=== PATIENT | male | born 1960 | race Caucasian/White ===

== ENCOUNTER 2016-12-02 09:09 | Inpatient (IN) | payer MEDICAID ==
[~2016-12-02] VITALS: Ht 172.7 cm; Wt 102.6 kg
[~2016-12-02 09:09] MED LIST: ALLO300T2 PO; BENZ1TAB7 PO; BETH25TA PO; CARV12.525 PO; CETI10TA56 PO; DAPA1TAB3 PO; DICL50TA7 PO; DIVA500T31 PO; DIVA500T37 PO; DULA1.5P SQ; EZET1TAB2 PO; INSU100I21 SQ; LEVO100T12 PO; LEVO500T63 PO; PALI6TAB6 PO; TAMS0.4C47 PO; TRIA-56 PO; VIT1CAPS47 PO; [UNRECOGNIZED DRUG - CODE] PO
--- OUTSIDE RECORDS SUMMARY | 2016-12-02 09:13 | XMS REPORT ---
Author Author Aleksandra Higgins Organization eClinicalWorks Address Unknown Phone Unavailable Care Team Providers Care Teacher Theater Arts Name Role Phone Aleksandra Higgins CP Unavailable Allergies No Known Allergies Problems Problem Type Condition ICD-9 Code Onset Dates Condition Status Problem Unspecified personality disorder 301.9 Active Problem Bipolar I disorder, most recent episode (or current) manic, severe, specified as with psychotic behavior 296.44 Active Medications No Known Medications Results No Known Results Summary Purpose eClinicalWorks Submission
--- OUTSIDE RECORDS SUMMARY | 2016-12-02 09:13 | XMS REPORT ---
Author Aleksandra Chanel [facility] eClinicalWorks Address Unknown Phone Unavailable Care Team Providers Care Christmas Bell Ringer Name Role Phone Aleksandra Higgins Unavailable Allergies No Known Allergies Problems Problem Type Condition Code Onset Dates Condition Status Problem Bipolar disorder, current episode manic severe with psychotic features F31.2 Active Problem Personality disorder, unspecified F60.9 Active Problem Other alf (current) drug therapy Z79.899 Active Assessment Other buttermaker (current) drug therapy Z79.899 Active Medications Medication Code System Code Instructions Start Date End Date Status Dosage Triamterene-HCTZ [facility] [address]-26 37.5-25 MG Orally Once a day 1/ 2 tablet in the morning Levemir [facility] [address]-90 100 UNIT/ML Subcutaneous as directed for Diabetes [address] [facility] [address]-42 1000 MG Orally Twice a day [address] [facility] [address]-27 0.75 mg/0.5 mL subcutaneous Once a week not defined Carvedilol [facility] [address]-97 25 MG Orally Twice a day 1 tablet with food Levothyroxine Sodium [facility] [address]-13 100 MCG Orally Once a day 1 tablet on an empty stomach in the morning Divalproex Sodium [facility] [address]-46 500 MG Orally Twice a day Jul 12, 2015 1 tab in am and 2 tabs at bedtime Benztropine Mesylate [facility] 13641141105 1 mg Orally Three times per day as needed for muscle tightness/restlessness take one tablet by mouth three times per day DiphenhydrAMINE HCl (Sleep) [facility] [address]-41 25 MG Orally Once a day Sep 14, 2015 1-2 capsules at bedtime as needed Divalproex Sodium [facility] [address]-92 250 MG Orally Once a day at bedtime ( along with [id number]) April 04, [address] [facility] [address]-81 10 MG Orally Once a day [address] [facility] [address]1379 150 MG Orally 4 times a day [address] [facility] [address]-33 6 MG Orally Once a day in AM Jul 05, 2015 1 tablet Procedures Procedure Coding System Code Date VALPROIC ACID CPT-4 73162 Apr 17, 2016 Results No Known Results Summary Purpose eClinicalWorks Submission
--- OUTSIDE RECORDS SUMMARY | 2016-12-02 09:13 | XMS REPORT ---
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 Active Assessment Bipolar I disorder, most recent episode (or current) manic, severe , specified as with psychotic behavior 296.44 Active Problem Bipolar I disorder, most recent episode (or current) manic, severe, specified as with psychotic behavior 296.44 Active Assessment Unspecified personality disorder 301.9 Active Assessment Encounter for long-term (current) use of other medications V58.69 Active Medications Medication Code System Code Instructions Start Date End Date Status Dosage Fish Oil [facility] [address]-97 1000 MG Orally Twice a day 2 capsule Carvedilol [facility] [address]-25 25 MG Orally Twice a day 1 tablet with food Zyrtec Allergy [facility] [address]-45 10 MG Orally Once a day 1 tablet Triamterene-HCTZ [facility] [address]-51 37.5-25 MG Orally Once a day 1 tablet in the morning Divalproex Sodium [facility] [address]-42 500 MG Orally Twice a day 1 tab in am and 3 tabs at bedtime Invega [facility] [address]-40 6 MG Orally Once a day in AM 1 tablet Levemir [facility] [address]-39 100 UNIT/ML Subcutaneous as directed for Diabetes 50 units Levothyroxine Sodium [facility] [address]-29 75 MCG Orally Once a day 1 tablet on an empty stomach in the morning Benfotiamine [facility] 02[address]103 150 MG Orally 4 times a day 1 capsu Benztropine Mesylate [facility] [address]-83 1 MG Orally twice a day 1 tablet Procedures Procedure Coding System Code Date OFFICE VISIT, EST-MOD. COMPLEXITY (25 MIN) CPT-4 27595 March 16, 2015 Vital Signs Date/Time: March 16, 2015 Height 64.5 in Weight 225 lbs Temperature 99.2 F Blood Pressure Diastolic 78 mm Hg Blood Pressure Systolic 130 mm Hg Cardiac Monitoring Heart Rate 68 /min BMI 38.02 Index Respiratory Rate 20 /min Results No Known Results Summary Purpose eClinicalWorks Submission
--- OUTSIDE RECORDS SUMMARY | 2016-12-02 09:13 | XMS REPORT ---
Author Author Aleksandra Higgins Organization eClinicalWorks Address Unknown Phone Unavailable Care Team Providers Care Barrel Raiser Helper Name Role Phone Aleksandra Higgins Unavailable Allergies No Known Allergies Problems Problem Type Condition Code Onset Dates Condition Status Problem Personality disorder, unspecified F60.9 Active Problem Bipolar disorder, current episode manic severe with psychotic features F31.2 Active Medications Medication Code System Code Instructions Start Date End Date Status Dosage [facility] [address]-03 6 MG Orally Once a day in AM Jul 05, 2015 1 tablet Results No Known Results Summary Purpose eClinicalWorks Submission
--- OUTSIDE RECORDS SUMMARY | 2016-12-02 09:13 | XMS REPORT ---
Author Author Aleksandra Higgins Organization eClinical[employer] Address Unknown Phone Unavailable Care Team Providers Care Fern Gatherer Name Role Phone Aleksandra Higgins Unavailable Allergies No Known Allergies Problems Problem Type Condition Code Onset Dates Condition Status Problem Bipolar disorder, current episode manic severe with psychotic features F31.2 Active Problem Personality disorder, unspecified F60.9 Active Problem Other terminal supervisor (current) drug therapy Z79.899 Active Assessment Other care home (current) drug therapy Z79.899 Active Medications Medication Code System Code Instructions Start Date End Date [place] D[place] [address]-83 500 MG Orally Twice a day Jul 12, 2015 1 tab in am and 2 tabs [place] [address]-19 250 MG Orally Once a day at bedtime ( along with [id number]) April 04, 2016 1 tablet Results No Known Results Summary Purpose eClinicalWorks Submission
--- OUTSIDE RECORDS SUMMARY | 2016-12-02 09:13 | XMS REPORT ---
Author Aleksandra Chanel [facility] eClinicalWorks Address Unknown Phone Unavailable Care Team Providers Care Test Rider Name Role Phone Aleksandra Higgins CP Unavailable Allergies, Adverse Reactions, Alerts Substance Reaction Event Type Penicillin Info Not Available Drug Allergy Problems Problem Type Condition Code Onset Dates Condition Status Problem Personality disorder, unspecified F60.9 Active Assessment Bipolar disorder, current episode manic severe with psychotic features F31.2 Active Problem Bipolar disorder, current episode manic severe with psychotic features F31.2 Active Assessment Personality disorder, unspecified F60.9 Active Assessment Other oysterman (current) drug therapy Z79.899 Active Medications Medication Code System Code Instructions Start Date End Date Status Dosage Benztropine Mesylate [facility] [id number] 1 Orally take one tablet by mouth twice a day Divalproex Sodium [facility] [address]-70 500 MG Orally Twice a day Jul 12, 2015 1 tab in am and 3 tabs at bedtime Levothyroxine Sodium [facility] [address]-34 75 MCG Orally Once a day 1 tablet on an empty stomach in the morning DiphenhydrAMINE HCl (Sleep) [facility] [address]-92 25 MG Orally Once a day Sep 14, 2015 1-2 capsules at bedtime as needed Triamterene-HCTZ [facility] [address]-41 37.5-25 MG Orally Once a day 1/ 2 tablet in the morning Benfotiamine [facility] 19943-07956 150 MG Orally 4 times a day 1 capsu Invega [facility] [address]-25 6 MG Orally Once a day in AM Jul 05, 2015 1 tablet Levemir [facility] [address]-29 100 UNIT/ML Subcutaneous as directed for Diabetes 50 units Fish Oil [facility] [address]-68 1000 MG Orally Twice a day 2 capsule Carvedilol [facility] [address]-46 25 MG Orally Twice a day 1 tablet with food Zyrtec Allergy [facility] [address]-89 10 MG Orally Once a day 1 tablet Avastin [facility] [address]-61 100 MG/4ML Intravenous not defined Procedures Procedure Coding System Code Date COMPLETE CBC W/AUTO DIFF WBC CPT-4 97151 Sep 14, 2015 TSH WITH REFLEX T4 CPT-4 42041 Sep 14, 2015 OFFICE VISIT, EST-MOD. COMPLEXITY (25 MIN) CPT-4 56611 Sep 14, 2015 IH CMP CPT-4 55130 Sep 14, 2015 VALPROIC ACID CPT-4 50724 Sep 14, 2015 IH LIPID PANEL CPT-4 30647 Sep 14, 2015 Vital Signs Date/Time: Sep 14, 2015 Height 64.5 in Weight 224.12 lbs Temperature 99.6 F Blood Pressure Diastolic 82 mm Hg Blood Pressure Systolic 130 mm Hg Cardiac Monitoring Heart Rate 78 /min BMI 37.87 Index Respiratory Rate 20 /min Results No Known Results Summary Purpose eClinicalWorks Submission
--- OUTSIDE RECORDS SUMMARY | 2016-12-02 09:14 | XMS REPORT ---
Author Aleksandra Chanel [facility] eClinicalWorks Address Unknown Phone Unavailable Care Team Providers Care Milk Driver Name Role Phone Aleksandra Higgins CP Unavailable [...] Active Assessment Unspecified personality disorder 301.9 Active Medications Medication Code System Code Instructions Start Date End Date Status Dosage Zyrtec Allergy [facility] [address]-95 10 MG Orally Once a day 1 tablet Benfotiamine [facility] 13534-12071 150 MG Orally 4 times a day 1 capsu Fish Oil [facility] [address]-35 1000 MG Orally Twice a day 1 capsule Levemir [facility] [address]-20 100 UNIT/ML Subcutaneous as directed for Diabetes 14.2mg/ml Levothyroxine Sodium [facility] [address]-42 75 MCG Orally Once a day 1 tablet on an empty stomach in the morning Triamterene-HCTZ [facility] [address]-23 37.5-25 MG Orally Once a day 1 tablet in the morning Divalproex Sodium [facility] [address]-83 500 MG Orally Twice a day 1 tab in am and 3 tabs at bedtime Invega [facility] [address]-53 6 MG Orally Once a day in AM 1 tablet Carvedilol [facility] [address]-95 25 MG Orally Twice a day 1 tablet with food Benztropine Mesylate [facility] [address]-29 1 MG Orally twice a day 1 tablet Procedures Procedure Coding System Code Date OFFICE VISIT, EST-MOD. COMPLEXITY (25 MIN) CPT-4 57796 December 15, 2014 Vital Signs Date/Time: December 15, 2014 Height 64.5 in Weight 226 lbs Temperature 99.6 F Blood Pressure Diastolic 80 mm Hg Blood Pressure Systolic 128 mm Hg Cardiac Monitoring Heart Rate 60 /min BMI 38.19 Index Respiratory Rate 18 /min Results No Known Results Summary Purpose eClinicalWorks Submission
--- OUTSIDE RECORDS SUMMARY | 2016-12-02 09:14 | XMS REPORT ---
Author Author Pérez Bustamante [facility] [place] eClinicalWorks Address Unknown Phone Unavailable Care Team Providers Care Ordnance Keeper Name Role Phone Pérez Bustamante CP Unavailable Allergies, Adverse Reactions, Alerts Substance Reaction Event Type Penicillin Info Not Available Drug Allergy Seasonal Allergies Info Not Available Non Drug Allergy Problems Problem Type Condition Code Onset Dates Condition Status Problem Bipolar disorder, current episode manic severe with psychotic features F31.2 Active Problem Personality disorder, unspecified F60.9 Active Problem Other terminal makeup operator (current) drug therapy Z79.899 Active Assessment Other shelter (current) drug therapy Z79.899 Active Assessment Bipolar disorder, current episode manic severe with psychotic features F31.2 Active Assessment Personality disorder, unspecified F60.9 Active Medications Medication Code System Code Instructions Start Date End Date Status Dosage Triamterene-HCTZ [facility] [address]-58 37.5-25 MG Orally Once a day 1/ 2 tablet in the morning Fish Oil [facility] [address]-80 1000 MG Orally Twice a day 2 capsule Divalproex Sodium [facility] [address]-04 250 MG Orally Once a day at bedtime ( along with [id number]) April 04, 2016 1 tablet Trulicity [facility] [address]-98 0.75 mg/0.5 mL subcutaneous Once a week not defined Carvedilol [facility] [address]-29 25 MG Orally Twice a day 1 tablet with food Divalproex Sodium [facility] [address]-98 500 MG Orally Twice a day Jul 12, 2015 1 tab in am and 2 tabs at bedtime Benztropine Mesylate [facility] 06028982184 1 mg Orally Three times per day as needed for muscle tightness/restlessness take one tablet by mouth three times per day Zyrtec Allergy [facility] [address]-79 10 MG Orally Once a day 1 tablet Benfotiamine [facility] 08[address]996 150 MG Orally 4 times a day 1 capsu Invega [facility] [address]-89 6 MG Orally Once a day in AM Jul 05, 2015 1 tablet Levothyroxine Sodium [facility] [address]-29 100 MCG Orally Once a day 1 tablet on an empty stomach in the morning Levemir [facility] [address]-85 100 UNIT/ML Subcutaneous as directed for Diabetes 50 units DiphenhydrAMINE HCl (Sleep) [facility] [address]-45 25 MG Orally Once a day Sep 14, 2015 1-2 capsules at bedtime as needed Procedures Procedure Coding System Code Date OFFICE VISIT, EST-MOD. COMPLEXITY (25 MIN) CPT-4 36990 Jun 30, 2016 Vital Signs Date/Time: Jun 30, 2016 Temperature 98.6 F Height 64.5 in Weight 224.4 lbs Respiratory Rate 20 /min Blood Pressure Diastolic 86 mm Hg Blood Pressure Systolic 128 mm Hg Cardiac Monitoring Heart Rate 80 /min Results No Known Results Summary Purpose eClinicalWorks Submission
--- OUTSIDE RECORDS SUMMARY | 2016-12-02 09:14 | XMS REPORT ---
Author Pérez Chew [facility] eClinicalWorks Address Unknown Phone Unavailable Care Team Providers Care Burial Needs Salesperson Name Role Phone Pérez Bustamante Unavailable Allergies No Known Allergies Problems Problem Type Condition Code Onset Dates Condition Status Problem Bipolar disorder, current episode manic severe with psychotic features F31.2 Active Problem Personality disorder, unspecified F60.9 Active Problem Other [facility] (current) drug therapy Z79.899 Active Assessment Other [facility] (current) drug therapy Z79.899 Active Medications Medication Code System Code Instructions Start Date End Date Status Dosage Trulicity [facility] [address]-19 0.75 mg/0.5 mL subcutaneous Once a week not defined Levemir [facility] [address]-02 100 UNIT/ML Subcutaneous as directed for Diabetes 50 units Divalproex Sodium [facility] [address]-58 250 MG Orally Once a day at bedtime ( along with [id number]) April 04, 2016 1 tablet Levothyroxine Sodium [facility] [address]-02 100 MCG Orally Once a day 1 tablet on an empty stomach in the morning Zyrtec Allergy [facility] [address]-31 10 MG Orally Once a day 1 tablet Fish Oil [facility] [address]-27 1000 MG Orally Twice a day 2 capsule Invega [facility] [address]-09 6 MG Orally Once a day in AM Jul 05, 2015 1 tablet Benztropine Mesylate [facility] 43593456909 1 mg Orally Three times per day as needed for muscle tightness/restlessness take one tablet by mouth three times per day Divalproex Sodium [facility] [address]-99 500 MG Orally Twice a day Jul 12, 2015 1 tab in am and 2 tabs at bedtime Triamterene-HCTZ [facility] [address]-99 37.5-25 MG Orally Once a day 1/ 2 tablet in the morning Benfotiamine [facility] [address]906 150 MG Orally 4 times a day 1 capsu DiphenhydrAMINE HCl (Sleep) [facility] [address]-49 25 MG Orally Once a day Sep 14, 2015 1-2 capsules at bedtime as needed Carvedilol [facility] [address]-42 25 MG Orally Twice a day 1 tablet with food Procedures Procedure Coding System Code Date T4 FREE CPT-4 29254 Jul 05, 2016 TSH CPT-4 25368 Jul 05, 2016 COMPLETE CBC W/AUTO DIFF WBC CPT-4 34340 Jul 05, 2016 IH LIPID PANEL CPT-4 72060 Jul 05, 2016 IH CMP CPT-4 26051 Jul 05, 2016 Results No Known Results Summary Purpose eClinicalWorks Submission
--- OUTSIDE RECORDS SUMMARY | 2016-12-02 09:14 | XMS REPORT ---
Author Aleksandra Chanel [facility] eClinicalWorks Address Unknown Phone Unavailable Care Team Providers Care Student Services Counselor Name Role Phone Aleksandra Higgins CP Unavailable Allergies, Adverse Reactions, Alerts Substance Reaction Event Type Penicillin Info Not Available Drug Allergy Problems Problem Type Condition Code Onset Dates Condition Status Problem Personality disorder, unspecified F60.9 Active Assessment Bipolar disorder, current episode manic severe with psychotic features F31.2 Active Problem Bipolar disorder, current episode manic severe with psychotic features F31.2 Active Assessment Other termite exterminator helper (current) drug therapy Z79.899 Active Medications Medication Code System Code Instructions Start Date End Date Status Dosage Zyrtec Allergy [facility] [address]-89 10 MG Orally Once a day [address] tablet Triamte[address]-H[address] [facility] [address]-81 37.5-25 MG Orally Once a day 1/ 2 tablet in the morning DiphenhydrAMINE HCl (Sleep) [facility] [address]-14 25 MG Orally Once a day Sep 14, 2015 1-2 capsules at bedtime as needed Invega [facility] [address]-93 6 MG Orally Once a day in AM Jul 05, [address] [facility] [address]-85 100 MCG Orally Once a day 1 tablet on an empty stomach in the morning Levemir [facility] [address]-80 100 UNIT/ML Subcutaneous as directed for Diabetes [address] [facility] 46[address] 150 MG Orally 4 times a day [address] [facility] [address]-07 0.75 mg/0.5 mL subcutaneous Once a week not defined Divalproex Sodium [facility] [address]-01 500 MG Orally Twice a day Jul 12, 2015 1 tab in am and 3 tabs at bedtime Benztropine Mesylate [facility] 93657340225 1 mg Orally Three times per day as needed for muscle tightness/restlessness take one tablet by mouth three times per day Carvedilol [facility] [address]-27 25 MG Orally Twice a day 1 tablet with food Fish Oil [facility] [address]-77 1000 MG Orally Twice a day 2 capsule Procedures Procedure Coding System Code Date OFFICE VISIT, EST-LOW COMPLEXITY (15 MIN.) CPT-4 00915 March 28, 2016 Vital Signs Date/Time: March 28, 2016 Temperature 99.0 F Height 64.5 in Weight 219.8 lbs Blood Pressure Diastolic 78 mm Hg Blood Pressure Systolic 110 mm Hg Cardiac Monitoring Heart Rate 84 /min BMI 37.14 Index Respiratory Rate 22 /min Results No Known Results Summary Purpose eClinicalWorks Submission
--- OUTSIDE RECORDS SUMMARY | 2016-12-02 09:14 | XMS REPORT ---
Author Aleksandra Chanel [facility] eClinicalWorks Address Unknown Phone Unavailable Care Team Providers Care Certified Neurodiagnostic Technologist Name Role Phone Aleksandra Higgins Unavailable Allergies No Known Allergies Problems Problem Type Condition Code Onset Dates Condition Status Problem Personality disorder, unspecified F60.9 Active Assessment Other watermelon harvesting supervisor (current) drug therapy Z79.899 Active Problem Bipolar disorder, current episode manic severe with psychotic features F31.2 Active Medications Medication Code System Code Instructions Start Date End Date Status Dosage Benfotiamine [facility] [address] 150 MG Orally 4 times a day 1 capsu Benztropine Mesylate [facility] 90833109586 1 mg Orally Three times per day as needed for muscle tightness/restlessness take one tablet by mouth three times per day DiphenhydrAMINE HCl (Sleep) [facility] [address]-08 25 MG Orally Once a day Sep 14, 2015 1-2 capsules at bedtime as needed Levothyroxine Sodium [facility] [address]-14 100 MCG Orally Once a day 1 tablet on an empty stomach in the morning Zyrtec Allergy [facility] [address]-55 10 MG Orally Once a day 1 tablet Divalproex Sodium [facility] [address]-07 500 MG Orally Twice a day Jul 12, 2015 1 tab in am and 3 tabs at bedtime Invega [facility] [address]-22 6 MG Orally Once a day in AM Jul 05, 2015 1 tablet Carvedilol [facility] [address]-05 25 MG Orally Twice a day 1 tablet with food Triamterene-HCTZ [facility] [address]-02 37.5-25 MG Orally Once a day 1/ 2 tablet in the morning Levemir [facility] [address]-52 100 UNIT/ML Subcutaneous as directed for Diabetes 50 units Fish Oil [facility] [address]-34 1000 MG Orally Twice a day 2 capsule Trulicity [facility] [address]-06 0.75 mg/0.5 mL subcutaneous Once a week not defined Procedures Procedure Coding System Code Date TSH WITH REFLEX T4 CPT-4 13349 March 31, 2016 VALPROIC ACID CPT-4 59979 March 31, 2016 COMPLETE CBC W/AUTO DIFF WBC CPT-4 47650 March 31, 2016 IH LIPID PANEL CPT-4 86788 March 31, 2016 IH CMP CPT-4 70234 March 31, 2016 Results Name Result Date Reference Range Unit Abnormality Flag In House CMP ----Total Protein 7.6 [id number] 6.4 - 8.1 G/DL ----EGFR >60 [id number] ----Alkaline Phosphatase 53 [id number] 53 - 128 u/L ----Creatinine 1.0 85650339 0.6 - 1.2 mg/DL ----BUN 25* [id number] 7 - 22 mg/DL ----Calcium 9.4 32249378 8.0 - 10.3 mg/DL ----Glucose 118 [id number] 73 - 118 mg/DL ----AST 30 [id number] 11 - 38 u/L ----ALT 18 [id number] 10 - 47 u/L ----Albumin 3.5 55884293 3.3 - 5.5 g/DL ----Total Bilirubin 0.6 55464775 0.2 - 1.6 mg/DL ----Sodium 138 65687473 128 - 145 mmol/L ----Potassium 4.2 33646713 3.6 - 5.1 mmol/L ----CO2 25 35180202 18 - 33 mmol/L ----Chloride 100 56048834 98 - 108 mmol/L Summary Purpose eClinicalWorks Submission
--- OUTSIDE RECORDS SUMMARY | 2016-12-02 09:14 | XMS REPORT ---
Author Author Pérez Bustamante [facility] e[employer] Address Unknown Phone Unavailable Care Team Providers Care Immigration Manager Name Role Phone Pérez Bustamante Unavailable Allergies No Known Allergies Problems Problem Type Condition Code Onset Dates Condition Status Problem Bipolar disorder, current episode manic severe with psychotic features F31.2 Active Problem Personality disorder, unspecified F60.9 Active Problem Other ferry terminal supervisor (current) drug therapy Z79.899 Active Assessment Bipolar disorder, current episode manic severe with psychotic features F31.2 Active Assessment Personality disorder, unspecified F60.9 Active Medications Medication Code System Code Instructions Start Date End Date Status Dosage Zyrtec Allergy [facility] [address]-32 10 MG Orally Once a day 1 tablet Triamterene-HCTZ [facility] [address]-18 37.5-25 MG Orally Once a day 1/ 2 tablet in the morning Carvedilol [facility] [address]-03 25 MG Orally Twice a day 1 tablet with food Trulicity [facility] [address]-93 0.75 mg/0.5 mL subcutaneous Once a week not defined Divalproex Sodium [facility] [address]-52 250 MG Orally Once a day at bedtime ( along with [id number]) April 04, [address] [facility] [address]-33 100 UNIT/ML Subcutaneous as directed for Diabetes 50 units Fish Oil [facility] [address]-86 1000 MG Orally Twice a day 2 capsule Divalproex Sodium [facility] [address]-98 500 MG Orally Twice a day Jul 12, 2015 1 tab in am and 2 tabs at bedtime DiphenhydrAMINE HCl (Sleep) [facility] [address]-57 25 MG Orally Once a day Sep 14, 2015 1-2 capsules at bedtime as needed Benztropine Mesylate [facility] [id number] 1 mg Orally Three times per day as needed for muscle tightness/restlessness take one tablet by mouth three times per day Benfotiamine [facility] [address] 150 MG Orally 4 times a day 1 capsu Levothyroxine Sodium [facility] [address]-91 100 MCG Orally Once a day 1 tablet on an empty stomach in the morning Invega [facility] [address]-28 6 MG Orally Once a day in AM Jul 05, 2015 1 tablet Procedures Procedure Coding System Code Date VALPROIC ACID CPT-4 60009 Jun 30, 2016 Results No Known Results Summary Purpose eClinicalWorks Submission
--- NOTE | 2016-12-02 09:28 | NUR ---
UA BRIGHT RED URINE TO LAB
[2016-12-02 09:33] LABS: BLOOD, URINE 3+ (NEGATIVE); COLOR,URINE RED (YELLOW); LEUKOCYTE ESTERASE ,URINE TRACE (NEGATIVE); NITRITE,URINE NEGATIVE (NEGATIVE); UROBILINOGEN,URINE 0.2 EU/DL (NORMAL)
--- NOTE | 2016-12-02 09:36 | NUR ---
DR VÁZQUEZ IN
[2016-12-02] MEDS ORDERED: MONT10TA25 PO (09:38)
[2016-12-02] MEDS ORDERED: INSU300I SQ (09:38)
[2016-12-02] MEDS ORDERED: DIVA250T27 PO (09:38)
[2016-12-02 09:52] LABS: BACTERIA,URINE NONE SEEN (NEGATIVE); RBC,URINE TNTC /HPF (0-3); SQUAMOUS EPITHELIAL CELL,UR 0-5
[2016-12-02 10:08] LABS: BASOPHILS % (AUTO) 0.1 % (0-2); EOSINOPHILS % (AUTO) 0.5 % (0-4); HCT - HEMATOCRIT 42.3 % (41-53); HGB - HEMOGLOBIN 14.1 GM/DL (13.5-17.5); IMMATURE GRANULOCYTE # (AUTO) 0.02 T/MM3 (0.00-0.03); IMMATURE GRANULOCYTE % (AUTO) 0.2 % (0.0-0.5); LYMPHOCYTES # (AUTO) 2.8 T/MM3 (1-4.8); LYMPHOCYTES % (AUTO) 31.7 % (23-45); MEAN CORPUSCULAR HGB 30.7 UUG (26-34); MEAN CORPUSCULAR HGB CONC(MCHC 33.3 GM/DL (31-37); MONOCYTES # (AUTO) 0.9 T/MM3 (0-0.8); MONOCYTES % (AUTO) 9.7 % (0-9.0); NEUTROPHILS #(AUTO)-ABSOLUTE 5.1 T/MM3 (1.8-7.7); NEUTROPHILS % (AUTO) 57.8 % (33-66); WBC - WHITE BLOOD COUNT 8.8 T/MM3 (4.5-11.0)
[2016-12-02 10:16] LABS: ALBUMIN 3.9 G/DL (3.5-5.0); ALBUMIN/GLOBULIN RATIO 1.1 RATIO (1.1-2.2); ALKALINE PHOSPHATASE 108 U/L (38-126); ALT (SGPT) 76 U/L (21-72); ANION GAP 17 MEQ/L (5-15); AST (SGOT) 84 U/L (17-59); BUN/CREATININE RATIO 32 RATIO (6-26); CALCIUM 9.6 MG/DL (8.4-10.2); CHLORIDE 98 MEQ/L (98-107); CO2 - CARBON DIOXIDE 26 MEQ/L (22-30); CREATININE 1.2 MG/DL (0.8-1.5); GLOMERULAR FILTRATION RATE 63; GLUCOSE 169 MG/DL (75-110); POTASSIUM 4.1 MEQ/L (3.6-5); SODIUM 141 MEQ/L (134-144); TOTAL PROTEIN 7.6 G/DL (6.3-8.2)
--- NOTE | 2016-12-02 10:22 | ERPDOC ---
Departure Disposition Decision Date: Dec 02, 2016 Disposition Decision Time: 14:36 Disposition: 02 TO [facility] Impression Impression Impression: Primary Impression: Cystitis Additional Impressions: Sepsis UTI (urinary tract infection) Severity: Moderate Condition: Stable Seen By: Physician only Referrals: DANA [place] II, MD (Family) Problems/Meds/Labs Reviewed?: Yes Medications reviewed and manag: Yes Follow up care ordered?: Yes Mental Status: Alert, Oriented HPI - Male General Chief Complaint: Male Urogenital Problems Stated Complaint: POSS UTI, RED URINE Time Seen by Provider: 09:39 HPI - Male Initial Comments 56-year-old gentleman with hematuria. Patient has had previous episodes of red, bloody urine although it is only happened a couple of times. He noticed it yesterday and then this morning again. It is become much more significant than previous. He does notice some clots are being passed, has some pain with urination, though not as much see would expect. No fever or chills, no diarrhea , no vomiting. He denies any instrumentation or damage to the penis. Allergies: Coded Allergies: Penicillins (Verified Allergy, Severe, ANAPHYLACTIC SHOCK, 12/02/16) Past History Patient Surgical History None Past Medical History Metabolic: diabetes, gout, hypercholesterolemia, hypertension, hypothyroidism ENMT: allergies, cataracts Cardiac: A-fib GI: GERD, other Male: BPH Psychological: bipolar, personality disorder Surgical History Denies Surgeries Family History Family PMH: FOUND: hypertension Vaccines Hx Influenza Vaccination: Yes (Aug) Hx Pneumococcal Vaccination: No Social History Smoking Status: Never smoker Substance Use Type: does not use Alcohol Intake: none Record Review Pertinent history updated: Yes Review of Systems General: see HPI Male: see HPI All other Systems All Other Systems: Reviewed and Negative Physical Exam General General Nourishment: appears stated age, no acute distress, adult, obese General Body Habitus: well groomed Vitals and Pain First Documented Vital Signs Date Time Temp Pulse Resp B/P Pulse Ox O2 Delivery O2 Flow Rate FiO2 12/02/16 09:11 98.4 93 16 139/80 95 Room Air Weight: Kilograms: 101.100 Height (feet): 5 Height (inches): 9.00 Triage Pain Scale: Normal Exams: Head: Normocephalic w/o trauma Eyes: Pupils are PERRLA w/ EOMI, No scleral icterus, irritation, or foreign bodies noted Neck: Full range of motion, without adenopathy, JVD, bruits or thyromegaly Chest/Resp: Clear all [place], with good airflow, and symmetry bilaterally CV: Regular rate and rhythm, without murmur or gallop, Pulses 2+ all extremities, capillary refill, <2 seconds all ext., no pedal edema noted Abdomen: Bowel sounds positive, soft, non-tender, non-distended, no hepatosplenomegaly, masses or bruits noted Differential Diagnoses Considering: Abscess, Trauma, Ureteral Stone, Urinary Retention Progress Results/Orders Orders Procedure Category Date Status Time Cbc W/Auto LAB 12/02/16 Complete Diff-Reflex Manual 09:39 Cmp - Comprehensive LAB 12/02/16 Complete Metabolic 09:39 Lactate - Lactic Acid LAB 12/02/16 Complete 09:39 Uric Acid LAB 12/02/16 Complete 09:39 Urine Culture MICHAEL 12/02/16 Logged 09:39 UA, LAB 12/02/16 Complete Dip&Micro(Complete) & 09:26 Blood Culture MICHAEL 12/02/16 In Process 11:16 Iv Lock (Ed Only) EDM 12/02/16 Transmitted 11:16 Normal Saline (Normal PHA 12/02/16 Complete Saline Iv) 11:30 Ct Abd/Pelvis CT 12/02/16 Taken W/Contrast Only Iohexol (Omnipaque) PHA 12/02/16 Complete 11:47 Normal Saline (Ns) PHA 12/02/16 Complete 11:47 Saline Flush (Iv PHA 12/02/16 Complete Flush) 11:48 Procalcitonin LAB 12/02/16 Complete 13:23 Aztreonam (Azactam) PHA 12/02/16 In Process 13:30 Levofloxacin 750 Mg PHA 12/02/16 In Process Ivpb (Levaquin 750 M 13:30 Vancomycin (Vancocin) PHA 12/02/16 In Process 13:30 Pharmacy Consult CONS 12/02/16 Transmitted 13:23 Lab Results Laboratory Tests Test 12/02/16 09:26 12/02/16 09:57 12/02/16 10:00 Urine Collection Type Voided-not cc-midstr Urine Color Red Urine Turbidity Cloudy Urine pH 6.5 Urine Specific [place] 1.010 Urine Protein 3+ Urine Glucose (UA) 3+ Urine Ketones Negative Urine Blood 3+ Urine Nitrite Negative Urine Bilirubin Negative Urine Urobilinogen 0.2EU/DL Urine Leukocyte Esterase Trace Urine RBC Tntc/HPF Urine WBC 3-5/HPF Urine Squamous Epithelial Cells 0-5 Urine Bacteria None seen Urine Culture Indicated Cult not indicated Procalcitonin 0.25NG/ML White Blood Count 8.8T/MM3 Red Blood Count 4.60M/MM3 Hemoglobin 14.1GM/DL Hematocrit 42.3% Mean Corpuscular Volume 92.0UM3 Mean Corpuscular Hemoglobin 30.7UUG Mean Corpuscular Hemoglobin Concent 33.3GM/DL RDW Standard Deviation 47.6FL Platelet Count 112T/MM3 Mean Platelet Volume 9.0UM3 Immature Granulocyte % (Auto) 0.2% Neutrophils (%) (Auto) 57.8% Lymphocytes (%) (Auto) 31.7% Monocytes (%) (Auto) 9.7% Eosinophils (%) (Auto) 0.5% Basophils (%) (Auto) 0.1% Absolute Immature Granulocyte (auto 0.02T/MM3 Absolute Neutrophils (auto) 5.1T/MM3 Absolute Lymphocytes (auto) 2.8T/MM3 Absolute Monocytes (auto) 0.9T/MM3 Absolute Eosinophils (auto) 0.0T/MM3 Absolute Basophils (auto) 0.0T/MM3 Turbidity < 20 Sodium Level 141MEQ/L Potassium Level 4.1MEQ/L Chloride Level 98MEQ/L Carbon Dioxide Level 26MEQ/L Anion Gap 17MEQ/L Blood Urea Nitrogen 38.0MG/DL Creatinine 1.2MG/DL Glomerular Filtration Rate Calc 63 BUN/Creatinine Ratio 32RATIO Glucose Level 169MG/DL Calculated Osmolality 284MOSM/KG Uric Acid 5.9MG/DL Calcium Level 9.6MG/DL Total Bilirubin 0.50MG/DL Icterus Index < 2 Aspartate Amino Transf (AST/SGOT) 84U/L Alanine Aminotransferase (ALT/SGPT) 76U/L Alkaline Phosphatase 108U/L Total Protein 7.6G/DL Albumin 3.9G/DL Globulin 3.7G/DL Albumin/Globulin Ratio 1.1RATIO Plasma Lactate 6.3MMOL/L Chemistry Specimen Hemolysis < 15 Medications Current ED Medications Sodium Chloride (Normal Saline IV) 1,000 ml @ 500 mls/hr Q2H ONCE IV Last administered on 12/02/16t 11:36; Start 12/02/16 at 11:30; Stop 12/02/16 at 13:29 ; Status DC Iohexol 1 bottle 1 bottle STK-MED ONCE .ROUTE ; Start 12/02/16 at 11:47; Stop at 11:48; Status DC Sodium Chloride (NS) 100 ml @ As Directed STK-MED ONCE .ROUTE ; Start 12/02/16 at 11:47; Stop 12/02/16 at 11:48; Status DC Sodium Chloride 10 ml 10 ml STK-MED ONCE .ROUTE ; Start 12/02/16 at 11:48; Stop 12/02/16 at 11:49; Status DC Aztreonam 1 g/ Sodium Chloride 100 ml @ 200 mls/hr Q6H IV ; Start 12/02/16 at 13:30 Levofloxacin 750 mg/Dextrose/Water 150 ml @ 100 mls/hr Q24H IV Last administered on 12/02/16t 13:32; Start 12/02/16 at 13:30 Vancomycin HCl/ Sodium Chloride (Vancocin/NS) 500 ml @ 250 mls/hr O ONCE IV ; Start 12/02/16 at 13:30; Stop 12/02/16 at 15:29 Progress Progress Patient has a normal white count of 8.8, but lactate of 6.3. He has had tachycardia as well. Urine shows minimal leukocyte Estrace and minimal bacteria. On CT scan bladder is thickened, questionable ureter masses and inflammation of kidney. I spoke with radiology at [facility] to review the film. Patient was started on septic protocol very shortly after arrival in the ED with blood cultures. He was then started on antibiotics for unknown sepsis with penicillin allergy. He states he has an anaphylactic reaction to penicillin. Spoke with Dr. Robertson, hospitalist. She agreed to accept the patient for admission. Urology will be consulted as infection is cleared. JESS VÁZQUEZ MD Dec 02, 2016 10:22
[2016-12-02 10:36] LABS: LACTATE - LACTIC ACID 6.3 MMOL/L (0.6-2.2)
[2016-12-02 10:52] LABS: URIC ACID 5.9 MG/DL (3.5-8.5)
[2016-12-02] MEDS ORDERED: NORMAL SALINE 1,000 ML IV ONE (11:30)
--- NOTE | 2016-12-02 11:35 | NUR ---
LAB HERE TO DO BC
[2016-12-02] MEDS ORDERED: NORMAL SALINE 100 ML ONE (11:47)
[2016-12-02] MEDS ORDERED: IOHEXOL 300 MG/ML 100ml INJECTION ONE (11:47)
[2016-12-02] MEDS ORDERED: SALINE FLUSH 10ml SYRINGE ONE (11:48)
--- NOTE | 2016-12-02 11:49 | NUR ---
TO CT PER CART
--- NOTE | 2016-12-02 12:03 | NUR ---
RETURNED FROM CT
[2016-12-02] MEDS ORDERED: VANCOMYCIN 2 G in NORMAL SALINE 500 ML IV ONE (13:30)
[2016-12-02] MEDS ORDERED: AZTREONAM 1 G in NORMAL SALINE 100 ML IV SCH (13:30)
[2016-12-02] MEDS: LEVOFLOXACIN 750 mg IVPB 750 MG in D5W 150 ML IV SCH (13:32)
--- NOTE | 2016-12-02 13:47 | NUR ---
REPORT TO KAHLIL OSHEA
--- NOTE | 2016-12-02 14:56 | NUR ---
ADMIT MEDICAL NOTIFIED OF NEED FOR A ROOM. STATES THEY WILL CALL BACK IN A MOMENT
--- NOTE | 2016-12-02 15:12 | NUR ---
ANGELINE SIMPSON RN ASSIGNS ROOM 154 WITH SANTANA HUERTA RN
--- NOTE | 2016-12-02 15:19 | NUR ---
REPORT GIVEN TO SANTANA OSHEA ON MEDICAL
[2016-12-02 15:30] VITALS: BP 128/72; PULSE 96; RESP 16; TEMP 98.2; O2SAT 95
--- NOTE | 2016-12-02 15:30 | NUR ---
Arrival Patient arrived on unit at this time via wheelchair. Moved self from wheelchair to bed. Oriented to unit. Will continue to monitor.
[2016-12-02 15:37] VITALS: Ht 172.7 cm; Wt 102.6 kg
[2016-12-02 16:20] VITALS: PULSE 94; RESP 16; O2SAT 96
[2016-12-02] MEDS ORDERED: BENZTROPINE 1 MG TABLET PO PRN (18:30)
--- NOTE | 2016-12-02 18:31 | NUR ---
Status Patient alert and oriented x3. Up with standby assist in room. Vital signs stable. Patient has voided once since arrival. Blood sugar stable. Patient has tolerated oral intake with no n/v. IV infusing as ordered.
--- NOTE | 2016-12-02 18:36 | HPPDOC ---
LAYLA CRUZ ADMINISTRATIVE ASSISTANT COORDINATOR 12/02/16 1743: HPI - Adult Date DATE: 12/02/16 TIME: 17:41 General Chief Complaint: Hematuria History of Present Illness Karin Ramirez is a 56-year-old male who noticed crimson red colored urine flow with burning with urination at 05 100 on 12/02/16. Over the course of the day, the burning has subsided but still persistent. He denies any fevers, chills, nausea, vomiting, diarrhea, weakness, dizziness, lightheadedness, difficulty breathing, chest pain, abdominal pain or flank pain. He denies history of kidney stones. He does report a history of "bladder contractility issues" and urinary retention. He follows with Dr. Mccray in the outpatient setting. He presented to the emergency department, and after IV fluids, he states that the redness has started to fade. Labs were done, showing a normal white count of 8.8 , but lactate was markedly elevated at 6.3, suggestive of septic shock. Platelets were low at 112, but upon review of records from [facility] this is a chronic finding. Proalcitonin was 0.25. Chemistries showed BUN of 38 and creatinine of 1.2. Glucose is 169, and he has a history of type 2 diabetes. AST was 84 and ALT was also elevated at 76. A CT scan of his abdomen and pelvis with IV contrast was obtained. This showed heterogenous nephrograms with multiple hypodensities, which would be consistent with pyelonephritis only if clinical data supported it. There is right-sided extrarenal pelvis, with moderate hydroureteronephrosis and mild distention of the left ureter, with the possibility of right more than left ureteral obstruction near the UVJ cannot be excluded. On this contrast CT there is no calcified ureteral stone identified. There is a moderate amount of stool in the colon and diverticulosis and nonspecific gastric thickening. The bladder was moderately distended with bladder wall thickening of 1.7 cm, raising the possibility of cystitis versus bladder neoplasm. He was started on Levaquin, aztreonam, and vancomycin in the emergency department. The hospitalist service was notified, and the patient was admitted to inpatient status for further evaluation of his hematuria with possible septic shock, though source remains unidentified. Length of stay is expected to exceed 2 overnights Past Medical History Past Medical History Patient's Medical History: (1) Diabetes mellitus Permanent Comment: Hemoglobin A1c was 7.5% on 09/25/16 Last Edited By: Layla Cruz on Dec 02, 2016 18:23 (2) Hypertension (3) Hypothyroid Permanent Comment: TSH was 4.93 on 07/05/16 Last Edited By: Layla Cruz on Dec 02, 2016 18:23 (4) HLD (hyperlipidemia) (5) Atrial fibrillation (6) JOSÉ LUIS (obstructive sleep apnea) Permanent Comment: Does not use CPAP - cannot tolerate it Last Edited By: Layla Cruz on Dec 02, 2016 18:19 (7) Bipolar depression (8) Partial small bowel obstruction Permanent Comment: Hospitalized for partial small bowel obstruction in November, Last Edited By: Layla Cruz on Dec 02, 2016 18:20 (9) Irritable bowel syndrome (10) BPH with urinary obstruction (11) Obesity (BMI 30.0-34.9) (12) Hemorrhoids (13) Macular degeneration (14) Allergic rhinitis (15) Thrombocytopenia Permanent Comment: 100-104 on outpatient records in 2015 Last Edited By: Layla Cruz on Dec 02, 2016 18:24 Surgical History Patient's Surgical History: Cataract extraction b/l [place] cyst removed from back Current Medications Home Meds Reported Medications Insulin Glargine,Hum.rec.anlog (Amina Hennessy) 300 Unit/1 Ml Insuln.pen, 50 UNIT SQ HS 12/02/16 Divalproex Sodium (Divalproex Sodium) 250 Mg Tablet.dr, 250 MG PO HS TAKE WITH 1000 MG TO EQUAL 1250 @ HS 12/02/16 Montelukast Sodium (Montelukast Sodium) 10 Mg Tablet, 10 MG PO HS 12/02/16 Dulaglutide (Trulicity) 1.5 Mg/0.5 Ml Pen.injctr, 1.5 MG SQ WEEKLY 01/11/16 Vit C/E/Zn/Coppr/Lutein/Zeaxan (Preservision Areds 2 Softgel) 1 Each Capsule, 1 CAP PO BID 12/04/15 Dapagliflozin/Metformin HCl (Xigduo Xr 5 mg-1,000 mg Tablet) 1 Each Tab.bp.24h, 1 TAB PO BID 12/04/15 Benztropine Mesylate (Benztropine Mesylate) 1 Mg Tablet, 1 MG PO TID Y for PRN ORDERS 12/04/15 [place]-3 Acid Ethyl Esters ([place]-3 Acid Ethyl Esters) 1 Gm Capsule, 4 TAB PO BID 12/04/15 Allopurinol (Allopurinol) 300 Mg Tablet, 300 MG PO DAILY 12/04/15 Paliperidone (Paliperidone ER) 6 Mg Tab.er.24, 6 MG PO DAILY 12/04/15 Triamterene/Hydrochlorothiazid (Triamterene-Hctz 75-50 mg Tab) 1 Each Tablet, 0.5 TAB PO DAILY 12/04/15 Levothyroxine Sodium (Levothyroxine Sodium) 100 Mcg Tablet, 100 MCG PO ACB 12/04/15 Divalproex Sodium (Divalproex Sodium) 500 Mg Tablet.dr, 1000 MG PO HS TAKE WITH 250 MG TO EQUAL 1250 MG @ HS 12/04/15 Divalproex Sodium (Depakote) 500 Mg Tablet.dr, 500 MG PO QAM 07/01/10 Carvedilol (Coreg) 12.5 Mg Tablet, 12.5 MG PO BID 07/01/10 Allergies: Coded Allergies: Penicillins (Verified Allergy, Severe, ANAPHYLACTIC SHOCK, 12/02/16) Family History Family History: Strong hx of diabetes on maternal side. Maternal grandfather of colon cancer at age 60. Maternal grandmother had Parkinson's. Both paternal grandparents of cancer - esophageal cancer in grandfather and lung cancer in grandmother, paternal grandfather also had coronary artery disease. Father is 75, has COPD (was a welder apprentice arc) Mother sees a neurologist for neuropathy in legs, and also has bipolar, hyperlipidemia and hypothyroidism Social History Smoking Status: Never smoker Substance Use Type: does not use Alcohol Intake: none Marital Status: Single Housing: house Household Members: family Current Occupational Status: employed Current Occupation: [employer] Advance Directives: No DPOA for Healthcare Only Social History Comments PCP - [facility] Review of Systems Constitutional: DENIES: appetite decrease, chills, dizziness, fever, weakness Eyes Vision: DENIES: vision changes ENMT Sinuses: NOT FOUND: congestion, rhinorrhea Mouth/Throat: DENIES: sore throat Cardiovascular DENIES: chest pain, dyspnea on exertion Pulmonary Respiratory: DENIES: cough, dyspnea, sputum GI Upper Abdomen: DENIES: nausea, pain, vomiting Lower Abdomen: DENIES: constipation, pain General: dysuria, hematuria Male: retention Musculoskeletal General: DENIES: joint pain, joint swelling, pain Integumentary Skin: DENIES: rash Neurological General: DENIES: ataxia, headache, seizures, syncope, tingling, weakness Psychiatric Psychiatric: depression Hematologic/Lymphatic DENIES: anemia, bleeding gums, easy bruising All Other Systems All Other Systems: Reviewed (remainder of 10-point ROS Neg.) Physical Exam General General Nourishment: well nourished, well developed General Body Habitus: well groomed Vital Signs Vital Signs Date Time Temp Pulse Resp B/P Pulse Ox O2 Delivery O2 Flow Rate FiO2 12/02/16 16:20 94 16 96 Room Air 12/02/16 15:30 98.2 128/72 Height (Feet): 5 Height (Inches): 8.00 Eyes Brief: FOUND: PERRL, NOT FOUND: scleral icterus ENMT Brief: NOT FOUND: mucosa moist (slightly dry), pharnyx erythema Neck Brief: FOUND: adenopathy (anterior cervical lymphadenopathy), NOT FOUND: nuchal rigidity Respiratory Auscultation: FOUND: normal, NOT FOUND: rales, rhonchi, wheezes Cardiovascular Auscultation: FOUND: S1, S2, regular Peripheral Pulses: 2+: Dorasalis Pedis (L), Dorsalis Pedis (R), Posterior Tibial (L), Posterior Tibial (R), Radial (L), Radial (R) Edema: 0: Anasarca, Arm (L), Arm (R), Face, Leg (L), Leg (R) Abdomen Inspection: NOT FOUND: distention Palpation: FOUND: soft, NOT FOUND: McBurney's point tender, Moran's sign, involuntary guarding, rebound, tender, voluntary guarding Auscultation: FOUND: normo active Musculoskeletal (brief) Musculoskeletal Brief: NOT FOUND: tenderness (calves soft, nttp) Integumentary (brief) Integumentary Brief: FOUND: dry, other (large scar on left santiago), pink, warm Integumentary General: FOUND: dry, warm Color: FOUND: pink Neurologic (brief) Neurological Brief: FOUND: cranial 2-12 intact (grossly) Neurologic GCS Eye Opening: (4)Spontaneous GCS Verbal: (5)Oriented GCS Motor: (6)Obeys Commands RN Documented GCS Total: 15 Psychiatric (brief) FOUND: alert, attentive, normal affect, oriented Laboratory Laboratory Tests Test 12/02/16 09:26 12/02/16 09:57 12/02/16 10:00 Urine Collection Type Voided-not cc-midstr Urine Color Red Urine Turbidity Cloudy Urine pH 6.5 Urine Specific [place] 1.010 Urine Protein 3+ Urine Glucose (UA) 3+ Urine Ketones Negative Urine Blood 3+ Urine Nitrite Negative Urine Bilirubin Negative Urine Urobilinogen 0.2EU/DL Urine Leukocyte Esterase Trace Urine RBC Tntc/HPF Urine WBC 3-5/HPF Urine Squamous Epithelial Cells 0-5 Urine Bacteria None seen Urine Culture Indicated Cult not indicated Procalcitonin 0.25NG/ML White Blood Count 8.8T/MM3 Red Blood Count 4.60M/MM3 Hemoglobin 14.1GM/DL Hematocrit 42.3% Mean Corpuscular Volume 92.0UM3 Mean Corpuscular Hemoglobin 30.7UUG Mean Corpuscular Hemoglobin Concent 33.3GM/DL RDW Standard Deviation 47.6FL Platelet Count 112T/MM3 Mean Platelet Volume 9.0UM3 Immature Granulocyte % (Auto) 0.2% Neutrophils (%) (Auto) 57.8% Lymphocytes (%) (Auto) 31.7% Monocytes (%) (Auto) 9.7% Eosinophils (%) (Auto) 0.5% Basophils (%) (Auto) 0.1% Absolute Immature Granulocyte (auto 0.02T/MM3 Absolute Neutrophils (auto) 5.1T/MM3 Absolute Lymphocytes (auto) 2.8T/MM3 Absolute Monocytes (auto) 0.9T/MM3 Absolute Eosinophils (auto) 0.0T/MM3 Absolute Basophils (auto) 0.0T/MM3 Turbidity < 20 Sodium Level 141MEQ/L Potassium Level 4.1MEQ/L Chloride Level 98MEQ/L Carbon Dioxide Level 26MEQ/L Anion Gap 17MEQ/L Blood Urea Nitrogen 38.0MG/DL Creatinine 1.2MG/DL Glomerular Filtration Rate Calc 63 BUN/Creatinine Ratio 32RATIO Glucose Level 169MG/DL Calculated Osmolality 284MOSM/KG Uric Acid 5.9MG/DL Calcium Level 9.6MG/DL Total Bilirubin 0.50MG/DL Icterus Index < 2 Aspartate Amino Transf (AST/SGOT) 84U/L Alanine Aminotransferase (ALT/SGPT) 76U/L Alkaline Phosphatase 108U/L Total Protein 7.6G/DL Albumin 3.9G/DL Globulin 3.7G/DL Albumin/Globulin Ratio 1.1RATIO Plasma Lactate 6.3MMOL/L Chemistry Specimen Hemolysis < 15 Assessment & Plan Problems: (1) Hematuria Status: Acute Assessment & Plan: CT scan of his abdomen and pelvis with IV contrast showed heterogenous nephrograms with multiple hypodensities, which would be consistent with pyelonephritis only if clinical data supported it. There is right-sided extrarenal pelvis, with moderate hydroureteronephrosis and mild distention of the left ureter, with the possibility of right more than left ureteral obstruction near the UVJ cannot be excluded. On this contrast CT there is no calcified ureteral stone identified. There is a moderate amount of stool in the colon and diverticulosis and nonspecific gastric thickening. The bladder was moderately distended with bladder wall thickening of 1.7 cm, raising the possibility of cystitis versus bladder neoplasm. (2) Hydroureter Status: Acute (3) Bladder obstruction Status: Acute Assessment & Plan: History of BPH with outflow obstruction (4) Septic shock Status: Acute Assessment & Plan: Rule out septic shock (5) Diabetes mellitus Status: Chronic Qualifiers: Diabetes mellitus type: type 2 Assessment & Plan: Hemoglobin A1c was 7.5% on 09/25/16 (6) Atrial fibrillation Status: Chronic (7) Thrombocytopenia Status: Chronic Assessment & Plan: Per clinic records, platelets were 101-104 in 2016 (8) Hypertension Status: Chronic (9) Hypothyroid Status: Chronic Qualifiers: Hypothyroidism type: acquired Qualified Codes: E03.9 - Hypothyroidism, unspecified (10) HLD (hyperlipidemia) Status: Chronic (11) JOSÉ LUIS (obstructive sleep apnea) Status: Chronic Assessment & Plan: Cannot tolerate CPAP (12) Bipolar depression Status: Chronic (13) Obesity (BMI 30.0-34.9) Status: Chronic (14) Hemorrhoids Status: Chronic Plan/Intensity of Service Patient is admitted to hospitalist service, for diagnosis of rule out septic shock, hematuria, possible pyelonephritis. PCP is Dr. Noland, urologist is Dr. Mccray. 1. Rule out septic shock. Initial lactate was elevated at 6.3, but patient has only one other SIRS criteria (heart rate greater than 90). He has dysuria with hematuria, but no clinical symptoms consistent with pyelonephritis. He has a history of diabetes with a recent hemoglobin A1c of 7.5%, which may falsely elevate lactate level. Urine showed RBC, but was not positive for acute UTI. Given severe elevation in lactate, we'll continue with aztreonam, Levaquin and vancomycin to cover uncertain infectious source. 2. Hematuria. Patient has a history of BPH with outflow obstruction. He denies history of kidney stones, though the CT scan with IV contrast may have masked a kidney stone. He was noted to have right moderate hydroureteronephrosis and mild distention of the left ureter at the level of the UVJ. There is also bladder wall thickening. We'll place a consult for Dr. Mccray to see him on Sunday. Hold diuretic. 3. Type 2 diabetes. Monitor blood glucose, carbohydrate consistent diet. Will ask pharmacy to review his current insulin regimen and offer recommendations for replacement. 4. Bipolar and depression. Continue home medications. Orders and plan were discussed and formulated with Dr. Robertson. DVT Prophylaxis: SCD'S Code Status Full Code Hospital Course Summary Disclaimer The hospital course summary below is not to be considered part of the above Progress Note. Hospital Course Summary 12/02/16 Patient is admitted to hospitalist service, for diagnosis of rule out septic shock, hematuria, possible pyelonephritis. PCP is Dr. Noland, urologist is Dr. Mccray. 1. Rule out septic shock. Initial lactate was elevated at 6.3, but patient has only one other SIRS criteria (heart rate greater than 90). He has dysuria with hematuria, but no clinical symptoms consistent with pyelonephritis. He has a history of diabetes with a recent hemoglobin A1c of 7.5%, which may falsely elevate lactate level. Urine showed RBC, but was not positive for acute UTI. Given severe elevation in lactate, we'll continue with aztreonam, Levaquin and vancomycin to cover uncertain infectious source. 2. Hematuria. Patient has a history of BPH with outflow obstruction. He denies history of kidney stones, though the CT scan with IV contrast may have masked a kidney stone. He was noted to have right moderate hydroureteronephrosis and mild distention of the left ureter at the level of the UVJ. There is also bladder wall thickening. We'll place a consult for Dr. Mccray to see him on Sunday. Hold diuretic. 3. Type 2 diabetes. Monitor blood glucose, carbohydrate consistent diet. Will ask pharmacy to review his current insulin regimen and offer recommendations for replacement. 4. Bipolar and depression. Continue home medications. JEFFY ROBERTSON MD 12/02/161951: Past Medical History Current Medications Home Meds Reported Medications Insulin Glargine,Hum.rec.anlog ([place] Solostar) 300 Unit/1 Ml Insuln.pen, 50 UNIT SQ HS 12/02/16 Divalproex Sodium (Divalproex Sodium) 250 Mg Tablet.dr, 250 MG PO HS TAKE WITH 1000 MG TO EQUAL 1250 @ HS 12/02/16 Montelukast Sodium (Montelukast Sodium) 10 Mg Tablet, 10 MG PO HS 12/02/16 Dulaglutide (Trulicity) 1.5 Mg/0.5 Ml Pen.injctr, 1.5 MG SQ WEEKLY 01/11/16 Vit C/E/Zn/Coppr/Lutein/Zeaxan (Preservision Areds 2 Softgel) 1 Each Capsule, 1 CAP PO BID 12/04/15 Dapagliflozin/Metformin HCl (Xigduo Xr 5 mg-1,000 mg Tablet) 1 Each Tab.bp.24h, 1 TAB PO BID 12/04/15 Benztropine Mesylate (Benztropine Mesylate) 1 Mg Tablet, 1 MG PO TID Y for PRN ORDERS 12/04/15 [place]-3 Acid Ethyl Esters ([place]-3 Acid Ethyl Esters) 1 Gm Capsule, 4 TAB PO BID 12/04/15 Allopurinol (Allopurinol) 300 Mg Tablet, 300 MG PO DAILY 12/04/15 Paliperidone (Paliperidone ER) 6 Mg Tab.er.24, 6 MG PO DAILY 12/04/15 Triamterene/Hydrochlorothiazid (Triamterene-Hctz 75-50 mg Tab) 1 Each Tablet, 0.5 TAB PO DAILY 12/04/15 Levothyroxine Sodium (Levothyroxine Sodium) 100 Mcg Tablet, 100 MCG PO ACB 12/04/15 Divalproex Sodium (Divalproex Sodium) 500 Mg Tablet.dr, 1000 MG PO HS TAKE WITH 250 MG TO EQUAL 1250 MG @ HS 12/04/15 Divalproex Sodium (Depakote) 500 Mg Tablet.dr, 500 MG PO QAM 07/01/10 Carvedilol (Coreg) 12.5 Mg Tablet, 12.5 MG PO BID 07/01/10 Allergies: Coded Allergies: Penicillins (Verified Allergy, Severe, ANAPHYLACTIC SHOCK, 12/02/16) Assessment & Plan Assessment I have independently evaluated and examined this patient. I reviewed the chart, the patient's history, and the ADMINISTRATIVE ASSISTANT COORDINATOR's documented findings as above. We discussed and formulated the assessment and plan as above with additions as below: Mr. Ramirez presents with hematuria and mild dysuria in conjunction with suprapubic tenderness today. He denies fevers, flank pain, or history of nephrolithiasis. He describes past history of incomplete bladder emptying and poor bladder contractility. The patient is alert and cooperative. He appears comfortable. Breath sounds are clear. Cardiac rhythm regular. Abdomen is soft with mild tenderness on palpation over the bladder but no flank tenderness. Urinalysis demonstrated trace leukocyte esterase, negative nitrite, 3-5 white cells in conjunction with gross hematuria. CT of the abdomen and pelvis is been reviewed demonstrating right hydroureter ( which was present on CT scan done a year ago although not reported-likely worse currently) and marked thickening of the bladder wall. Lung bases are clear by my review. There is no leukocytosis, hemodynamically instability, or fever to suggest sepsis despite the elevated lactic acid. In the absence of sepsis I don't believe there can be septic shock despite presence of lactic acidosis. Empiric antibiotics were initiated in the ER. Narrow antibiotics to Levaquin for coverage. Urine will be cultured despite initial findings. Anticipate need for cystoscopy. In addition to above diagnoses please add: Chronic kidney disease stage 2-3 Plan/Intensity of Service Current and past CT abdomen/pelvis reviewed by myself, discussed with Dr. Real. Past records reviewed. Laboratory data reviewed. Patient examined. Greater than 48 hours inpatient stay anticipated for patient management/stabilization. LAYLA CRUZ APRN Dec 02, 2016 17:43 JEFFY ROBERTSON MD Dec 02, 2016 19:52
[2016-12-02 20:00] VITALS: PULSE 94; RESP 16
[2016-12-02] MEDS ORDERED: CARVEDILOL 12.5 MG TABLET PO SCH (21:00)
[2016-12-02] MEDS ORDERED: METFORMIN HCL PO SCH (21:00)
[2016-12-02] MEDS ORDERED: DAPAGLIFLOZIN PO SCH (21:00)
[2016-12-02] MEDS: TOUJEO SQ SCH (22:00)
[2016-12-02] MEDS: DIVALPROEX 500 MG TABLET PO SCH (22:01)
[2016-12-02] MEDS: MONTELUKAST 10 MG TABLET PO SCH (22:02)
[2016-12-02] MEDS: MULTIVIT + MINERALS (OPTI-GEN) PO SCH (22:02)
[2016-12-02] MEDS: DIVALPROEX 250 MG TABLET PO SCH (22:09)
[2016-12-02] MEDS ORDERED: VANCOMYCIN 1,500 MG in NORMAL SALINE 500 ML IV SCH (23:00)
[2016-12-02 23:30] VITALS: BP 125/70; PULSE 90; RESP 18; TEMP 97.3; O2SAT 92
[2016-12-03 05:10] LABS: EOSINOPHILS # (AUTO) 0.1 T/MM3 (0-0.5); EOSINOPHILS % (AUTO) 1.8 % (0-4); HCT - HEMATOCRIT 40.6 % (41-53); HGB - HEMOGLOBIN 13.2 GM/DL (13.5-17.5); IMMATURE GRANULOCYTE # (AUTO) 0.01 T/MM3 (0.00-0.03); IMMATURE GRANULOCYTE % (AUTO) 0.1 % (0.0-0.5); LYMPHOCYTES # (AUTO) 2.4 T/MM3 (1-4.8); LYMPHOCYTES % (AUTO) 30.2 % (23-45); MEAN CORPUSCULAR HGB 30.3 UUG (26-34); MEAN CORPUSCULAR HGB CONC(MCHC 32.5 GM/DL (31-37); MEAN CORPUSCULAR VOLUME 93.1 UM3 (80-100); MEAN PLATELET VOLUME 9.4 UM3 (9.4-12.4); MONOCYTES # (AUTO) 0.7 T/MM3 (0-0.8); MONOCYTES % (AUTO) 8.6 % (0-9.0); NEUTROPHILS #(AUTO)-ABSOLUTE 4.7 T/MM3 (1.8-7.7); NEUTROPHILS % (AUTO) 59.3 % (33-66); RED BLOOD COUNT 4.36 M/MM3 (4.50-5.90)
[2016-12-03] MEDS: LEVOTHYROXINE 100 MCG TABLET PO SCH (05:11)
[2016-12-03 05:54] LABS: ANION GAP 10 MEQ/L (5-15); BUN/CREATININE RATIO 25 RATIO (6-26); CALCIUM 9.4 MG/DL (8.4-10.2); CHLORIDE 104 MEQ/L (98-107); CO2 - CARBON DIOXIDE 30 MEQ/L (22-30); CREATININE 1.2 MG/DL (0.8-1.5); GLOMERULAR FILTRATION RATE 63; GLUCOSE 133 MG/DL (75-110); POTASSIUM 3.9 MEQ/L (3.6-5); SODIUM 144 MEQ/L (134-144)
--- NOTE | 2016-12-03 07:43 | NUR ---
PT did well overnight. Urine was strained per orders but nothing was found in the strainer after voids. PT follows commands, VSS. PT self turned throughout night.
[2016-12-03 08:47] VITALS: BP 136/93; PULSE 91; RESP 16; TEMP 97.5; O2SAT 94
[2016-12-03 08:56] VITALS: PULSE 91; RESP 16
[2016-12-03] MEDS: MULTIVIT + MINERALS (OPTI-GEN) PO SCH ×2 (09:16→21:33)
[2016-12-03] MEDS: PALIPERIDONE 6 MG PO SCH (09:16)
[2016-12-03] MEDS: ALLOPURINOL 300 MG TABLET PO SCH (09:17)
[2016-12-03] MEDS: CARVEDILOL 12.5 MG TABLET PO SCH ×2 (09:17→17:35)
[2016-12-03] MEDS: DIVALPROEX 500 MG TABLET PO SCH ×2 (09:17→21:35)
[2016-12-03] MEDS ORDERED: INSULIN LISPRO 100 UNIT/ML SQ ONE (11:30)
[2016-12-03 11:40] VITALS: BP 134/88; PULSE 90; RESP 18; TEMP 96
[2016-12-03] MEDS: LEVOFLOXACIN 750 mg IVPB 750 MG in D5W 150 ML IV SCH (13:41)
[2016-12-03] MEDS ORDERED: NS 500 ML IV PRN (13:45)
--- NOTE | 2016-12-03 14:12 | DI ---
Indication: ITS.REASON: hematuria PROCEDURE: CT ABD/PELVIS W/CONTRAST ONLY: Encounter: Initial Comparison: December 04, 2015 Technique: Axial CT images were performed through the abdomen and pelvis after the administration of intravenous contrast. Coronal and sagittal two-dimensional reformats. Automated Exposure Control and Iterative Reconstruction dose reducing techniques were utilized. Contrast: Omnipaque 300 100 mL Findings: Stable right middle lobe groundglass nodule. New 8 mm left lower lobe nodule on image #12. Liver is decreased in attenuation relative to the spleen consistent with diffuse fatty infiltration as seen previously. No enhancing liver mass or bile duct dilatation. The gallbladder is unremarkable. The spleen, pancreas and adrenal glands are within normal limits. Diffusely heterogeneous kidneys are noted with numerous low-attenuation foci throughout both renal cortices which are too small to characterize. No abdominal or pelvic lymphadenopathy. New severe wall thickening of the bladder, particularly anteriorly. No evidence of a bowel obstruction. Scattered colonic diverticulosis without acute diverticulitis. The appendix is normal. Bladder wall thickening measures up to 1.8 cm. Bone windows show degenerative changes in the spine. Impression: 1. New severe bladder wall thickening could be due to neoplasm or inflammation. Recommend direct visualization with cystoscopy and possible biopsy. 2. Hepatic steatosis. 3. Stable abnormal kidneys. 4. New 8 mm left lower lobe pulmonary nodule. Recommend short-term follow-up noncontrast chest CT in six months to evaluate for stability. There is a preliminary report by [employer]. .
[2016-12-03] MEDS: INSULIN LISPRO 100 UNIT/ML SQ PRN (15:14)
[2016-12-03 15:18] VITALS: BP 137/79; PULSE 91; RESP 18; TEMP 96.8; O2SAT 93
--- NOTE | 2016-12-03 15:59 | PNPDOC ---
Subjective Date DATE: 12/03/16 TIME: 15:42 Subjective Hematuria resolving-minimal residual blood tinge per patient report. Dysuria gone. Patient denies dyspnea, fever, nausea, or lightheadedness. Blood sugars have been high today but home medications have not been available and his diabetes medications were not available in the pharmacy overnight. No current concerns other than mild residual suprapubic discomfort. Objective Vital Signs Vital signs Vital Signs Date Time Temp Pulse Resp B/P Pulse Ox O2 Delivery O2 Flow Rate FiO2 12/03/16 15:18 96.8 91 18 137/79 93 Room Air I/O [id number] EXAM General-NAD, alert, cooperative HEENT-conjunctiva clear Lungs-respirations nonlabored, good airflow, breath sounds clear; inspiration triggers cough Cardiac-regular rhythm, S1-S2 Abd-moderately obese, soft, mild tenderness on palpation suprapubically but no guarding, bowel sounds present Neuro-ambulates without assistance, moving all extremities well Height (Feet): 5 Height (Inches): 8.00 Weight (Kilograms): 102.800 Laboratory Laboratory Laboratory Tests 12/02/16 10:00 12/03/16 04:52 Laboratory Tests 12/02/16 10:00 12/03/16 04:52 Lactic acid 3.2 last night Accu-Cheks [phone] Microbiology Microbiology Microbiology Date/Time Source Procedure Growth Status 12/02/16 11:35 Peripheral/Iv Start Blood Culture - Preliminary NO GROWTH AFTER 24 HOURS Resulted 12/02/16 11:29 Peripheral/Iv Start Blood Culture - Preliminary NO GROWTH AFTER 24 HOURS Resulted 12/03/16 05:17 Urine, Clean Catch-Midstream Urine Culture - Preliminary CULTURE INITIATED - RESULTS PENDING Resulted 12/02/16 09:26 Urine, Voided-Not Cc-Midstream Urine Culture - Preliminary Mixed Gram Positive Organisms Resulted Radiology CT abdomen pelvis report available today indicating severe bladder wall thickening as noted yesterday but additionally reported as a 8 mm left lower lobe pulmonary [id number] CT in 6 months recommended Assessment & Plan Problems: (1) Hematuria Status: Acute Assessment & Plan: CT scan of his abdomen and pelvis with IV contrast showed heterogenous nephrograms with multiple hypodensities, which would be consistent with pyelonephritis only if clinical data supported it. There is right-sided extrarenal pelvis, with moderate hydroureteronephrosis and mild distention of the left ureter, with the possibility of right more than left ureteral obstruction near the UVJ cannot be excluded. On this contrast CT there is no calcified ureteral stone identified. There is a moderate amount of stool in the colon and diverticulosis and nonspecific gastric thickening. The bladder was moderately distended with bladder wall thickening of 1.7 cm, raising the possibility of cystitis versus bladder neoplasm. (2) Hydroureter Status: Acute (3) Lactic acidosis Status: Acute Assessment & Plan: No clinical signs of sepsis present on admission (4) Bladder obstruction Status: Chronic Assessment & Plan: History of BPH with outflow obstruction (5) Diabetes mellitus Status: Chronic Qualifiers: Diabetes mellitus type: type 2 Diabetes mellitus complication status: with hyperglycemia Assessment & Plan: Hemoglobin A1c was 7.5% on 09/25/16 (6) Atrial fibrillation Status: Chronic (7) Thrombocytopenia Status: Chronic Assessment & Plan: Per clinic records, platelets were 101-104 in 2016 (8) Hypertension Status: Chronic (9) Hypothyroid Status: Chronic Qualifiers: Hypothyroidism type: acquired Qualified Codes: E03.9 - Hypothyroidism, unspecified (10) HLD (hyperlipidemia) Status: Chronic (11) JOSÉ LUIS (obstructive sleep apnea) Status: Chronic Assessment & Plan: Cannot tolerate CPAP (12) Bipolar depression Status: Chronic (13) Obesity (BMI 30.0-34.9) Status: Chronic (14) Hemorrhoids Status: Chronic (15) Pulmonary nodule, left Assessment & Plan: 8 mm-left lower lobe Assessment Doing well clinically. Remains hemodynamically stable and without evidence of sepsis/hypotension/hypoxia to explain lactic acidosis. Reassess lactic acid level tomorrow morning. Hematuria improving with hydration and antibiotics. Dr. Mccray consulted-anticipate cystoscopy. Urine with low count mixed gram positives-continue antibiotics pending 48 hour cultures. Corrective scale insulin ordered and pharmacy has adapted home medication to available products. Incidental left lower lobe nodule noted-outpatient follow-up planned. Plan/Intensity of Service Laboratory data reviewed, CT report reviewed DVT Prophylaxis: SCD'S Code Status Full Code Hospital Course Summary Disclaimer The hospital course summary below is not to be considered part of the above Progress Note. Hospital Course Summary 12/02/16 Patient is admitted to hospitalist service, for diagnosis of rule out septic shock, hematuria, possible pyelonephritis. PCP is Dr. Noland, urologist is Dr. Mccray. 1. Rule out septic shock. Initial lactate was elevated at 6.3, but patient has only one other SIRS criteria (heart rate greater than 90). He has dysuria with hematuria, but no clinical symptoms consistent with pyelonephritis. He has a history of diabetes with a recent hemoglobin A1c of 7.5%, which may falsely elevate lactate level. Urine showed RBC, but was not positive for acute UTI. Given severe elevation in lactate, we'll continue with aztreonam, Levaquin and vancomycin to cover uncertain infectious source. 2. Hematuria. Patient has a history of BPH with outflow obstruction. He denies history of kidney stones, though the CT scan with IV contrast may have masked a kidney stone. He was noted to have right moderate hydroureteronephrosis and mild distention of the left ureter at the level of the UVJ. There is also bladder wall thickening. We'll place a consult for Dr. Mccray to see him on Sunday. Hold diuretic. 3. Type 2 diabetes. Monitor blood glucose, carbohydrate consistent diet. Will ask pharmacy to review his current insulin regimen and offer recommendations for replacement. 4. Bipolar and depression. Continue home medications. 12/03/16 Doing well clinically. Remains hemodynamically stable and without evidence of sepsis/hypotension/hypoxia to explain lactic acidosis. Reassess lactic acid level tomorrow morning. Hematuria improving with hydration and antibiotics. Dr. Mccray consulted-anticipate cystoscopy. Urine with low count mixed gram positives-continue antibiotics pending 48 hour cultures. Corrective scale insulin ordered and pharmacy has adapted home medication to available products. Incidental left lower lobe nodule noted-outpatient follow-up planned. JEFFY CARMEN MD Dec 03, 2016 15:47
[2016-12-03] MEDS: NORMAL SALINE 1,000 ML IV SCH ×2 (16:15→23:12)
[2016-12-03 19:52] VITALS: BP 138/75; PULSE 85; RESP 20; TEMP 97.3; O2SAT 92
--- NOTE | 2016-12-03 20:02 | NUR ---
SHIFT SUMMARY PATIENT IS ALERT AND ORIENTED X3. PATIENT VITALS ARE STABLE AND PATIENT IS ON ROOM AIR. PATIENT DENIES NAUSEA, CP, AND SOA. PATIENT VOIDS HAVE BEEN CLEAR AND YELLOW, WITH NOT STONES NOTED. PATIENT IS UP WITH STAND BY ASSIST. FAMILY HAS BEEN AT BEDSIDE. WILL CONTINUE TO MONITOR.
[2016-12-03] MEDS: DAPAGLIFLOZIN 5 MG TABLET PO SCH (21:32)
[2016-12-03] MEDS: METFORMIN XR 500 MG TABLET PO SCH (21:33)
[2016-12-03] MEDS: MONTELUKAST 10 MG TABLET PO SCH (21:35)
[2016-12-03] MEDS: DIVALPROEX 250 MG TABLET PO SCH (21:35)
[2016-12-03] MEDS: TOUJEO SQ SCH (21:35)
[2016-12-03 23:26] VITALS: BP 143/76; PULSE 80; RESP 20; TEMP 96.6; O2SAT 95
[2016-12-04 03:49] VITALS: BP 140/77; PULSE 92; RESP 20; TEMP 96.7; O2SAT 91
--- NOTE | 2016-12-04 05:22 | NUR ---
SUMMARY PT IS ALERT AND ORIENTED. STAND BY ASSIST FOR AMBULATION. IV IN THE LT HAND RUNNING NS AT 75 MLS/HR. ALL URINE STRAINED NO STONES/CALICULI FOUND. VITAL SIGNS STABLE, DENIES PAIN.
[2016-12-04 05:30] LABS: ALBUMIN 3.3 G/DL (3.5-5.0); ANION GAP 10 MEQ/L (5-15); BUN/CREATININE RATIO 22 RATIO (6-26); CALCIUM 9.1 MG/DL (8.4-10.2); CHLORIDE 106 MEQ/L (98-107); CO2 - CARBON DIOXIDE 28 MEQ/L (22-30); GLOMERULAR FILTRATION RATE 78; GLUCOSE 141 MG/DL (75-110); MAGNESIUM 1.6 MG/DL (1.6-2.3); PHOSPHORUS 3.2 MG/DL (2.5-4.5); POTASSIUM 3.8 MEQ/L (3.6-5); SODIUM 144 MEQ/L (134-144)
[2016-12-04] MEDS: LEVOTHYROXINE 100 MCG TABLET PO SCH (05:58)
[2016-12-04 08:00] VITALS: BP 144/81; PULSE 83; RESP 16; TEMP 96.8; O2SAT 92
--- NOTE | 2016-12-04 08:28 | NUR ---
Bladder Scanner Patient voided 725ml clear, yellow urine. No report of pain on urination. Urine strained, no clots or stones noted. 68ml retained on bladder scan.
[2016-12-04] MEDS: PALIPERIDONE 6 MG PO SCH (08:50)
[2016-12-04] MEDS: METFORMIN XR 500 MG TABLET PO SCH (08:50)
[2016-12-04] MEDS: DAPAGLIFLOZIN 5 MG TABLET PO SCH (08:50)
[2016-12-04] MEDS: DIVALPROEX 500 MG TABLET PO SCH (08:50)
[2016-12-04] MEDS: MULTIVIT + MINERALS (OPTI-GEN) PO SCH (08:50)
[2016-12-04] MEDS: ALLOPURINOL 300 MG TABLET PO SCH (08:50)
[2016-12-04] MEDS: CARVEDILOL 12.5 MG TABLET PO SCH (08:51)
[2016-12-04] MEDS: INSULIN LISPRO 100 UNIT/ML SQ PRN ×2 (10:16→15:14)
[2016-12-04 11:22] VITALS: BP 126/80; PULSE 84; RESP 18; TEMP 95.7; O2SAT 93
--- NOTE | 2016-12-04 11:37 | NUR ---
Bladder Scan Patient voided 650 ml clear, yellow urine. Post void residual 30 ml.
--- NOTE | 2016-12-04 12:19 | NUR ---
NOELLE CM VISITED PT. CM EXPLAINED ROLE AND PROVIDED CONTACT INFORMATION. PT PLANS TO RETURN HOME AT TIME OF D/C FROM [facility]. PT DENIES NEEDS. PT IS AWARE TO CONTACT CM IF NEEDS [facility].
[2016-12-04] MEDS: LEVOFLOXACIN 750 mg IVPB 750 MG in D5W 150 ML IV SCH (13:40)
[2016-12-04 15:27] VITALS: BP 129/87; PULSE 85; RESP 18; TEMP 96.6; O2SAT 96
--- NOTE | 2016-12-04 15:30 | NUR ---
Status Patient alert and oriented x3. VSS. On RA. Blood sugar elevated, sliding scale insulin given. No other PRN meds given. Patient up with standby assist in room. IVL. Patient has adequate oral intake with no n/v. Several BM today and clear yellow urine. Patient states he no longer has pain on urination. Will follow up with [facility] outpatient. Anticipate discharge this afternoon.
--- NOTE | 2016-12-04 16:10 | DSPDOC ---
General Date Date DATE: 12/04/16 TIME: 15:56 Attending Physician Oly Robertson MD Admitting Physician Oly Robertson MD Consulting Physician Adeel Mccray MD Admitting Diagnosis sepsis Discharge Diagnosis 1. Gross hematuria 2. Bladder wall thickening-unknown etiology 3. Right hydroureter 4. Left lower lobe pulmonary nodule 5. Lactic acidosis without sepsis, etiology unknown 6. Diabetes mellitus 7. Hypertension 8. Bipolar affective disorder 9. Obstructive sleep apnea Laboratory Laboratory Tests Test 12/03/16 04:52 12/03/16 06:35 12/03/16 10:22 12/03/16 14:37 White Blood Count 8.0T/MM3 (4.5-11.0) Red Blood Count 4.36M/MM3 (4.50-5.90) Hemoglobin 13.2GM/DL (13.5-17.5) Hematocrit 40.6% (41-53) Mean Corpuscular Volume 93.1UM3 (80-100) Mean Corpuscular Hemoglobin 30.3UUG (26-34) Mean Corpuscular Hemoglobin Concent 32.5GM/DL (31-37) RDW Standard Deviation 48.4FL (36.9-50.2) Platelet Count 102T/MM3 (130-400) Mean Platelet Volume 9.4UM3 (9.4-12.4) Immature Granulocyte % (Auto) 0.1% (0.0-0.5) Neutrophils (%) (Auto) 59.3% (33-66) Lymphocytes (%) (Auto) 30.2% (23-45) Monocytes (%) (Auto) 8.6% (0-9.0) Eosinophils (%) (Auto) 1.8% (0-4) Basophils (%) (Auto) 0.0% (0-2) Absolute Immature Granulocyte (auto 0.01T/MM3 (0.00-0.03) Absolute Neutrophils (auto) 4.7T/MM3 (1.8-7.7) Absolute Lymphocytes (auto) 2.4T/MM3 (1-4.8) Absolute Monocytes (auto) 0.7T/MM3 (0-0.8) Absolute Eosinophils (auto) 0.1T/MM3 (0-0.5) Absolute Basophils (auto) 0.0T/MM3 (0-0.2) Turbidity < 20 (0-20) Sodium Level 144MEQ/L (134-144) Potassium Level 3.9MEQ/L (3.6-5) Chloride Level 104MEQ/L (98-107) Carbon Dioxide Level 30MEQ/L (22-30) Anion Gap 10MEQ/L (5-15) Blood Urea Nitrogen 30.0MG/DL (9-20) Creatinine 1.2MG/DL (0.8-1.5) Glomerular Filtration Rate Calc 63 BUN/Creatinine Ratio 25RATIO (6-26) Glucose Level 133MG/DL (75-110) Calculated Osmolality 285MOSM/KG (261-280) Calcium Level 9.4MG/DL (8.4-10.2) Icterus Index < 2 (0-7) Procalcitonin 0.19NG/ML Chemistry Specimen Hemolysis < 15 (0-25) Glucometer 139mg/dL (75-110) 292mg/dL (75-110) 230mg/dL (75-110) Test 12/03/16 19:52 12/03/16 20:27 12/04/16 05:03 12/04/16 05:59 Glucometer 204mg/dL (75-110) 204mg/dL (75-110) 131mg/dL (75-110) Turbidity < 20 (0-20) Sodium Level 144MEQ/L (134-144) Potassium Level 3.8MEQ/L (3.6-5) Chloride Level 106MEQ/L (98-107) Carbon Dioxide Level 28MEQ/L (22-30) Anion Gap 10MEQ/L (5-15) Blood Urea Nitrogen 22.0MG/DL (9-20) Creatinine 1.0MG/DL (0.8-1.5) Glomerular Filtration Rate Calc 78 BUN/Creatinine Ratio 22RATIO (6-26) Glucose Level 141MG/DL (75-110) Calculated Osmolality 282MOSM/KG (261-280) Calcium Level 9.1MG/DL (8.4-10.2) Phosphorus Level 3.2MG/DL (2.5-4.5) Magnesium Level 1.6MG/DL (1.6-2.3) Icterus Index < 2 (0-7) Albumin 3.3G/DL (3.5-5.0) Plasma Lactate 2.0MMOL/L (0.6-2.2) Chemistry Specimen Hemolysis < 15 (0-25) Test 12/04/16 10:03 12/04/16 13:47 Glucometer 291mg/dL (75-110) 196mg/dL (75-110) On 12/02 hemoglobin was 14.1, white count 8.8, and platelet count 412 On 12/02 BUN 38, creatinine 1.2, AST 84, ALT 76, procalcitonin 0.25, and lactic acid 6.3 repeating 4.7 8 hrs later Microbiology Microbiology Date/Time Source Procedure Growth Status 12/02/16 11:35 Peripheral/Iv Start Blood Culture - Preliminary NO GROWTH AFTER 48 HOURS Resulted 12/02/16 11:29 Peripheral/Iv Start Blood Culture - Preliminary NO GROWTH AFTER 48 HOURS Resulted 12/03/16 05:17 Urine, Clean Catch-Midstream Urine Culture - Preliminary NO GROWTH AFTER 24 HOURS Resulted 12/02/16 09:26 Urine, Voided-Not Cc-Midstream Urine Culture - Preliminary 10-50K Mixed Gram Positive Cocci Resulted Radiology CT of abdomen and pelvis on 12/02 1. New severe bladder wall thickening could be due to neoplasm or inflammation. Recommend direct visualization with cystoscopy and possible biopsy. 2. Hepatic steatosis. 3. Stable abnormal kidneys. 4. New 8 mm left lower lobe pulmonary nodule. Recommend short-term follow-up noncontrast chest CT in six months to evaluate for stability. History of Present Illness Karin Ramirez is a 56-year-old male who noticed crimson red colored urine flow with burning with urination at 05 100 on 12/02/16. Over the course of the day, the burning has subsided but still persistent. He denies any fevers, chills, nausea, vomiting, diarrhea, weakness, dizziness, lightheadedness, difficulty breathing, chest pain, abdominal pain or flank pain. He denies history of kidney stones. He does report a history of "bladder contractility issues" and urinary retention. He follows with Dr. Mccray in the outpatient setting. He presented to the emergency department, and after IV fluids, he states that the redness has started to fade. Labs were done, showing a normal white count of 8.8 , but lactate was markedly elevated at 6.3, suggestive of septic shock. Platelets were low at 112, but upon review of records from [facility] this is a chronic finding. Proalcitonin was 0.25. Chemistries showed BUN of 38 and creatinine of 1.2. Glucose is 169, and he has a history of type 2 diabetes. AST was 84 and ALT was also elevated at 76. A CT scan of his abdomen and pelvis with IV contrast was obtained. This showed heterogenous nephrograms with multiple hypodensities, which would be consistent with pyelonephritis only if clinical data supported it. There is right-sided extrarenal pelvis, with moderate hydroureteronephrosis and mild distention of the left ureter, with the possibility of right more than left ureteral obstruction near the UVJ cannot be excluded. On this contrast CT there is no calcified ureteral stone identified. There is a moderate amount of stool in the colon and diverticulosis and nonspecific gastric thickening. The bladder was moderately distended with bladder wall thickening of 1.7 cm, raising the possibility of cystitis versus bladder neoplasm. He was started on Levaquin, aztreonam, and vancomycin in the emergency department. The hospitalist service was notified, and the patient was admitted to inpatient status for further evaluation of his hematuria with possible septic shock, though source remains unidentified. Length of stay is expected to exceed 2 overnights Hospital Course 12/02/16 Patient is admitted to hospitalist service, for diagnosis of rule out septic shock, hematuria, possible pyelonephritis. PCP is Dr. Ny, urologist is Dr. Mccray. 1. Rule out septic shock. Initial lactate was elevated at 6.3, but patient has only one other SIRS criteria (heart rate greater than 90). He has dysuria with hematuria, but no clinical symptoms consistent with pyelonephritis. He has a history of diabetes with a recent hemoglobin A1c of 7.5%, which may falsely elevate lactate level. Urine showed RBC, but was not positive for acute UTI. Given severe elevation in lactate, we'll continue with aztreonam, Levaquin and vancomycin to cover uncertain infectious source. 2. Hematuria. Patient has a history of BPH with outflow obstruction. He denies history of kidney stones, though the CT scan with IV contrast may have masked a kidney stone. He was noted to have right moderate hydroureteronephrosis and mild distention of the left ureter at the level of the UVJ. There is also bladder wall thickening. We'll place a consult for Dr. Mccray to see him on Sunday. Hold diuretic. 3. Type 2 diabetes. Monitor blood glucose, carbohydrate consistent diet. Will ask pharmacy to review his current insulin regimen and offer recommendations for replacement. 4. Bipolar and depression. Continue home medications. 12/03/16 Doing well clinically. Remains hemodynamically stable and without evidence of sepsis/hypotension/hypoxia to explain lactic acidosis. Reassess lactic acid level tomorrow morning. Hematuria improving with hydration and antibiotics. Dr. Mccray consulted-anticipate cystoscopy. Urine with low count mixed gram positives-continue antibiotics pending 48 hour cultures. Corrective scale insulin ordered and pharmacy has adapted home medication to available products. Incidental left lower lobe nodule noted-outpatient follow-up planned. 12/04/16 Urine has cleared completely by patient report. Post void residuals have been obtained demonstrating minimal residual of 30 mL after voiding 650 mL and 68 mL after voiding 750 mL. Patient reports no dysuria, abdominal discomfort, or fever. He's been afebrile throughout the hospitalization. Abdomen is benign today the patient is alert and cooperative. He is anxious for discharge at this time. Findings were discussed with Dr. Mccray who indicated he could see him in the office for reevaluation and consideration of cystoscopy. Patient has been advised of the small left lower lobe pulmonary nodule seen on CT, follow-up imaging in 6 months recommended. Urine culture with low count mixed gram-positive organisms-patient is had 3 days of IV antibiotics and further antibiotic therapy is not felt necessary. Blood cultures remain negative at discharge. Serum lactate has normalized, etiology of lactic acidosis on presentation is unclear. Patient is stable for discharge at this time on home medications with outpatient follow-up with Dr. Mccray in the near future and Dr. Ny in 1-2 weeks. >30 minutes spent on patient care and discharge care coordination today on the date of discharge. -- Problems: (1) Hematuria Status: Acute Assessment & Plan: CT scan of his abdomen and pelvis with IV contrast showed heterogenous nephrograms with multiple hypodensities, which would be consistent with pyelonephritis only if clinical data supported it. There is right-sided extrarenal pelvis, with moderate hydroureteronephrosis and mild distention of the left ureter, with the possibility of right more than left ureteral obstruction near the UVJ cannot be excluded. On this contrast CT there is no calcified ureteral stone identified. There is a moderate amount of stool in the colon and diverticulosis and nonspecific gastric thickening. The bladder was moderately distended with bladder wall thickening of 1.7 cm, raising the possibility of cystitis versus bladder neoplasm. (2) Hydroureter Status: Acute (3) Lactic acidosis Status: Acute Assessment & Plan: No clinical signs of sepsis present on admission (4) Bladder obstruction Status: Chronic Assessment & Plan: History of BPH with outflow obstruction (5) Diabetes mellitus Status: Chronic Assessment & Plan: Hemoglobin A1c was 7.5% on 09/25/16 (6) Atrial fibrillation Status: Chronic (7) Thrombocytopenia Status: Chronic Assessment & Plan: Per clinic records, platelets were 101-104 in 2016 (8) Hypertension Status: Chronic (9) Hypothyroid Status: Chronic (10) HLD (hyperlipidemia) Status: Chronic (11) JOSÉ LUIS (obstructive sleep apnea) Status: Chronic Assessment & Plan: Cannot tolerate CPAP (12) Bipolar depression Status: Chronic (13) Obesity (BMI 30.0-34.9) Status: Chronic (14) Hemorrhoids Status: Chronic (15) Pulmonary nodule, left Assessment & Plan: 8 mm-left lower lobe Code Status Full Code Home Meds Reported Medications Insulin Glargine,Hum.rec.anlog (Amina Hennessy) 300 Unit/1 Ml Insuln.pen, 50 UNIT SQ HS 12/02/16 Divalproex Sodium (Divalproex Sodium) 250 Mg Tablet.dr, 250 MG PO HS TAKE WITH 1000 MG TO EQUAL 1250 @ HS 12/02/16 Montelukast Sodium (Montelukast Sodium) 10 Mg Tablet, 10 MG PO HS 12/02/16 Dulaglutide (Trulicity) 1.5 Mg/0.5 Ml Pen.injctr, 1.5 MG SQ WEEKLY 01/11/16 Vit C/E/Zn/Coppr/Lutein/Zeaxan (Preservision Areds 2 Softgel) 1 Each Capsule, 1 CAP PO BID 12/04/15 Dapagliflozin/Metformin HCl (Xigduo Xr 5 mg-1,000 mg Tablet) 1 Each Tab.bp.24h, 1 TAB PO BID 12/04/15 Benztropine Mesylate (Benztropine Mesylate) 1 Mg Tablet, 1 MG PO TID Y for PRN ORDERS 12/04/15 [place]-3 Acid Ethyl Esters ([place]-3 Acid Ethyl Esters) 1 Gm Capsule, 4 TAB PO BID 12/04/15 Allopurinol (Allopurinol) 300 Mg Tablet, 300 MG PO DAILY 12/04/15 Paliperidone (Paliperidone ER) 6 Mg Tab.er.24, 6 MG PO DAILY 12/04/15 Triamterene/Hydrochlorothiazid (Triamterene-Hctz 75-50 mg Tab) 1 Each Tablet, 0.5 TAB PO DAILY 12/04/15 Levothyroxine Sodium (Levothyroxine Sodium) 100 Mcg Tablet, 100 MCG PO ACB 12/04/15 Divalproex Sodium (Divalproex Sodium) 500 Mg Tablet.dr, 1000 MG PO HS TAKE WITH 250 MG TO EQUAL 1250 MG @ HS 12/04/15 Divalproex Sodium (Depakote) 500 Mg Tablet.dr, 500 MG PO QAM 07/01/10 Carvedilol (Coreg) 12.5 Mg Tablet, 12.5 MG PO BID 07/01/10 Face to Face Encounter I met with patient on the day of dismissal and discussed follow up appointments , medications, and safety plan. Discharge Disposition home Copies To 1: ADEEL MCCRAY MD; DANA [place] II, MD Documentation Requirements Documenting Diagnosis Diabetes BMI Low or High Assoc. dx for low or high BMI: Obesity 30-34.9 Diabetes Diabetes Type: Type 2 Diabetes Is Diabetes Contolled?: Uncontolled Related to Diabetes: Not related to OLY ROBERTSON MD Dec 04, 2016 16:01
--- NOTE | 2016-12-04 17:35 | NUR ---
Discharge Patient discharged to home at this time via wheelchair. Discharge instructions discussed with patient who voiced understanding. Discharge instructions sent home with patient. Belongings gathered and sent home.
[2016-12-05] MEDS ORDERED: TRULICITY 1.5 MG SQ SCH (09:00)
--- NOTE | 2016-12-05 15:05 | NUR ---
CM NO VM
--- NOTE | 2016-12-06 13:13 | NUR ---
CM CM LM WITH MOTHER
== END 2016-12-04 17:35 | disposition home or self-care (01) | DRG 696 ==
LOC: ED 09:09 → EDHOLD 14:39 → MED 14:39
PROVIDERS: ADMIT Internal Medicine; ATTEND Internal Medicine
DX: R31.0 Gross hematuria (principal); E87.2 Acidosis; N13.4 Hydroureter; N13.8 Other obstructive and reflux uropathy; E11.65 Type 2 diabetes mellitus with hyperglycemia; I10 Essential (primary) hypertension; E03.9 Hypothyroidism, unspecified; E78.5 Hyperlipidemia, unspecified; I48.91 Unspecified atrial fibrillation; R91.1 Solitary pulmonary nodule; G47.33 Obstructive sleep apnea (adult) (pediatric); K58.9 Irritable bowel syndrome, unspecified; F32.9 Major depressive disorder, single episode, unspecified; N40.1 Benign prostatic hyperplasia with lower urinary tract symptoms; E66.9 Obesity, unspecified; K64.9 Unspecified hemorrhoids; H35.30 Unspecified macular degeneration; Z79.4 Long term (current) use of insulin; Z68.34 Body mass index [BMI] 34.0-34.9, adult
CPT/HCPCS: 36415; 80048; 80053; 80069; 81001; 82948; 83605; 83735; 84145; 84550; 85025; 87040; 87077; 87086; 87186; 96361; 96365

== ENCOUNTER → 2017-01-09 | Outpatient (CLI) | payer MEDICAID ==
[~2017-01-09] MED LIST changes: -BETH25TA PO; -CETI10TA56 PO; -DICL50TA7 PO; +DIVA250T27 PO; -EZET1TAB2 PO; -INSU100I21 SQ; +INSU300I SQ; -LEVO500T63 PO; +MONT10TA25 PO; -TAMS0.4C47 PO
--- NOTE | 2017-01-09 14:55 | DI ---
Indication: ITS.REASON: R31.0 HEMATURIA PROCEDURE: US RENAL: Encounter: Initial Comparison: CT abdomen and pelvis dated December 02, 2016 Technique: Grayscale and color Doppler sonographic imaging of both kidneys was performed. FINDINGS: Right kidney is enlarged. The left kidney is atrophic with decreased cortical thickness. Innumerable tiny cortical cysts are visible on the comparison CT and are not apparent by ultrasound. No evidence for collecting system dilatation, contour deforming mass, nephrolithiasis, or abnormal perinephric fluid collection. The right kidney measures 14.9 cm in length, and the left kidney measures 8.6 cm in length. Benign appearing 1.7 cm cyst noted in the right kidney. Simple appearing 2.1 cm cyst in the left kidney. IMPRESSION: No hydronephrosis, nephrolithiasis or renal mass seen. .
== END ==
LOC: IMA 14:03
PROVIDERS: ATTEND Specialist
DX: R31.0 Gross hematuria (principal)

== ENCOUNTER 2017-06-15 09:10 | Inpatient (IN) ==
[2017-06-15] MEDS ORDERED: CEFTRIAXONE 1 G in NS 100 ML IV ONE (09:39)
--- NOTE | 2017-06-15 09:42 | Emergency Department Report ---
Male Urogenital HPI - General Chief complaint: Medical Emergency Stated complaint: uti Time Seen by Provider: 06/15/17 09:32 Source: patient, family (MOP) Mode of arrival: ambulatory Limitations: no limitations - History of Present Illness HPI Narrative: 56yo man presented to the ER by his parents for evaluation of a 'UTI'. Pt has had a UTI for the last 3 weeks; his PCM has treated it with cipro, then macrobid , then cipro, all without relief of sx. Pt is a type-2, IDDM; gets UTIs frequently as a result. For the last week, pt has not felt well; his PCM referred him to the ER. MD Complaint: other (Ascending UTI) Onset (ago): week(s) (3) Duration: constant Location: penis (urethral), abdomen Severity: moderate Severity scale (1-10): 5 Quality: burning Relieving factors: none Exacerbating factors: urination other (IDDM) Reports: fever, other (fatigue) - Related Data Home Medications Medication Instructions Recorded Confirmed Carvedilol [Coreg] 12.5 mg PO BID #0 07/01/10 06/15/17 Divalproex Sodium [Depakote] 500 mg PO QAM #0 07/01/10 06/15/17 Allopurinol 300 mg PO DAILY #0 12/04/15 06/15/17 Benztropine Mesylate 1 mg PO BID #0 12/04/15 06/15/17 Dapagliflozin/Metformin HCl 1 tab PO BID #0 12/04/15 06/15/17 [Xigduo Xr 5 mg-1,000 mg Tablet] Divalproex [Depakote] 1,000 mg PO HS #0 12/04/15 06/15/17 Triamterene/Hydrochlorothiazid 0.5 tab PO DAILY #0 12/04/15 06/15/17 [Triamterene-Hctz 75-50 mg Tab] Vit C/E/Zn/Coppr/Lutein/Zeaxan 1 cap PO BID #0 12/04/15 06/15/17 [Preservision Areds 2 Softgel] Divalproex Sodium 250 mg PO HS #0 12/02/16 06/15/17 Montelukast Sodium 10 mg PO HS #0 12/02/16 06/15/17 Alamax Cr 1 tab PO DAILY 06/15/17 06/15/17 Bentotiamine 2 tab PO BID 06/15/17 06/15/17 Cetirizine [Zyrtec] 10 mg PO DAILY 06/15/17 06/15/17 Ciprofloxacin HCl [Ciprofloxacin 500 mg PO Q12H 06/15/17 06/15/17 HCl] Insulin Degludec [Tresiba 100 unit SQ HS 06/15/17 06/15/17 Flextouch U-100] Levothyroxine Sodium 100 mcg PO ACB 06/15/17 06/15/17 [Levothyroxine Sodium] [place]-3 Acid Ethyl Esters 2 gm PO BID 06/15/17 06/15/17 Paliperidone [Paliperidone ER] 6 mg PO DAILY 06/15/17 06/15/17 Ultimate Pro Support 1 tab PO DAILY 06/15/17 06/15/17 Allergies Allergy/AdvReac Type Severity Reaction Status Date / Time Penicillins Allergy Severe ANAPHYLACTIC Verified 06/15/17 09:20 SHOCK Review of Systems All systems: reviewed and negative except as stated Constitutional: Reports: as per HPI, weakness Genitourinary: Reports: as per HPI, urgency, dysuria, frequency PFSH Patient Stated Medical History Cataracts Yes Hypertension Yes Diabetes Mellitus Type 2 Yes Hx Urinary Tract Infection Yes Sepsis Yes Bipolar Disorder Yes Family History: Family History (Last Updated 05/08/17 @ 13:21 by Kelli Phillips) Father No problems noted. - Social History Smoking status: Never smoker Physical Exam - Limitations Limitations: no limitations - General General appearance: alert, in no apparent distress, obese - Normal Exams: Head:: Normocephalic without trauma Eyes:: Pupils are PERRLA w/ EOMI, No scleral icterus, irritation, or foreign bodies noted ENMT:: No facial trauma, nasal exudates, pharyngeal erythema, or exudates are noted Neck:: Full range of motion, without adenopathy Chest/Respirations:: Clear all mayorga, with good airflow, and symmetry bilaterally Cardiovascular:: Regular rate and rhythm, without murmur or gallop, Pulses 2+ all extremities, capillary refill, <2 seconds all extremities Abdomen:: Bowel sounds positive, soft, non-tender, non-distended, no hepatosplenomegaly, masses or bruits noted Lymphatic:: No lymphadenopathy Musculoskeletal:: No tenderness, or deformity noted Integumentary:: No rashes, hives, or bruising noted Neurological:: Patient is alert, and oriented, cranial nerves, motor/sensory/ cerebellar, exams w/o gross deficits (Pt has resting tremor that disappears with purposeful movements.) Psychiatric:: Patient exhibits, appropriate attention Course - Consultations Consultation #1: Hospitalist: Pt accepted for admission for treatment of sepsis. Time: 10:45 Vital Signs Temperature 99.4 F 06/15/17 09:20 Pulse Rate 100 06/15/17 09:20 Respiratory Rate 24 06/15/17 09:20 Blood Pressure 133/78 06/15/17 09:20 Pulse Oximetry 92 06/15/17 09:20 Temperature 99.4 F 06/15/17 09:20 Pulse Rate 93 06/15/17 10:28 Respiratory Rate 20 06/15/17 10:28 Blood Pressure 120/71 06/15/17 10:28 Pulse Oximetry 92 06/15/17 10:28 Urogenital-Male - MDM Narrative Medical decision making narrative: Pt with elevated WBCs, bandemia, elevated lactate, and intermediate procal. Rocephin and first liter of fluids given. Vanc chaser ordered; will contact hospitalist for admission and further treatment. - Differential Diagnosis Likely: urinary tract infection (Pyelonephritis, sepsis), urethritis, prostatitis - Medical Records Attestation: I reviewed the patient's medical records. - Lab Data Attestation: I reviewed the patient's lab results. Result diagrams: 06/15/17 09:53 06/15/17 09:53 Lab Results 06/15/17 06/15/17 06/15/17 Range/Units 09:53 09:53 09:53 WBC 14.0 H (4.5-11.0) T/MM3 RBC 4.67 (4.50-5.90) M/MM3 Hgb 13.6 (13.5-17.5) GM/DL Hct 42.9 (41-53) % MCV 91.9 (80-100) UM3 MCH 29.1 (26-34) UUG MCHC 31.7 (31-37) GM/DL RDW Std Deviation 51.1 H (36.9-50.2) FL Plt Count 131 (130-400) T/MM3 MPV 9.0 L (9.4-12.4) UM3 Immature Gran % (Auto) Not performed Neut % (Auto) Not performed Lymph % (Auto) Not performed Churchill % (Auto) Not performed Eos % (Auto) Not performed Baso % (Auto) Not performed Neut # (Auto) Not performed Lymph # (Auto) Not performed Churchill # (Auto) Not performed Eos # (Auto) Not performed Baso # (Auto) Not performed Abs Immat Gran (auto) Not performed Neutrophils % (Manual) 59.0 (33-66) % Band Neutrophils % 15.0 H (0-6) % Lymphocytes % (Manual) 11.0 L (23-45) % Monocytes % (Manual) 13.0 H (0-9.0) % Metamyelocytes % 1.0 H (0-0) % Myelocytes % 1.0 H (0-0) % Neutrophils # (Manual) 8.3 H (1.8-7.7) T/MM3 Band Neutrophils # 2.1 T/MM3 Lymphocytes # (Manual) 1.5 (1-4.8) T/MM3 Monocytes # (Manual) 1.8 H (0-0.8) T/MM3 Metamyelocytes # 0.1 T/MM3 Myelocytes # 0.1 T/MM3 RBC Morph Comment Normal Turbidity (0-20) Sodium (134-144) MEQ/L Potassium (3.6-5) MEQ/L Chloride (98-107) MEQ/L Carbon Dioxide (22-30) MEQ/L Anion Gap (5-15) MEQ/L BUN (9-20) MG/DL Creatinine (0.8-1.5) MG/DL GFR Calculation BUN/Creatinine Ratio (6-26) RATIO Glucose (75-110) MG/DL Calculated Osmolality (261-280) MOSM/KG Calcium (8.4-10.2) MG/DL Total Bilirubin (0.20-1.30) MG/DL Icterus Index (0-7) AST (17-59) U/L ALT (21-72) U/L Alkaline Phosphatase (38-126) U/L Total Protein (6.3-8.2) G/DL Albumin (3.5-5.0) G/DL Globulin (2.4-3.6) G/DL Albumin/Globulin Ratio (1.1-2.2) RATIO Lipase 143 (23-300) U/L Plasma Lactate 2.9 H (0.6-2.2) MMOL/L Procalcitonin 0.70 NG/ML Specimen Hemolysis (0-25) 06/15/ Range/Units 09:53 WBC (4.5-11.0) T/MM3 RBC (4.50-5.90) M/MM3 Hgb (13.5-17.5) GM/DL Hct (41-53) % MCV (80-100) UM3 MCH (26-34) UUG MCHC (31-37) GM/DL RDW Std Deviation (36.9-50.2) FL Plt Count (130-400) T/MM3 MPV (9.4-12.4) UM3 Immature Gran % (Auto) Neut % (Auto) Lymph % (Auto) Churchill % (Auto) Eos % (Auto) Baso % (Auto) Neut # (Auto) Lymph # (Auto) Churchill # (Auto) Eos # (Auto) Baso # (Auto) Abs Immat Gran (auto) Neutrophils % (Manual) (33-66) % Band Neutrophils % (0-6) % Lymphocytes % (Manual) (23-45) % Monocytes % (Manual) (0-9.0) % Metamyelocytes % (0-0) % Myelocytes % (0-0) % Neutrophils # (Manual) (1.8-7.7) T/MM3 Band Neutrophils # T/MM3 Lymphocytes # (Manual) (1-4.8) T/MM3 Monocytes # (Manual) (0-0.8) T/MM3 Metamyelocytes # T/MM3 Myelocytes # T/MM3 RBC Morph Comment Turbidity < 20 (0-20) Sodium 144 (134-144) MEQ/L Potassium 4.1 (3.6-5) MEQ/L Chloride 99 (98-107) MEQ/L Carbon Dioxide 28 (22-30) MEQ/L Anion Gap 17 H (5-15) MEQ/L BUN 41.0 H (9-20) MG/DL Creatinine 1.7 H (0.8-1.5) MG/DL GFR Calculation 42 BUN/Creatinine Ratio 24 (6-26) RATIO Glucose 267 H (75-110) MG/DL Calculated Osmolality 296 H (261-280) MOSM/KG Calcium 10.7 H (8.4-10.2) MG/DL Total Bilirubin 0.70 (0.20-1.30) MG/DL Icterus Index < 2 (0-7) AST 42 (17-59) U/L ALT 33 (21-72) U/L Alkaline Phosphatase 101 (38-126) U/L Total Protein 8.7 H (6.3-8.2) G/DL Albumin 3.9 (3.5-5.0) G/DL Globulin 4.8 H (2.4-3.6) G/DL Albumin/Globulin Ratio 0.8 L (1.1-2.2) RATIO Lipase (23-300) U/L Plasma Lactate (0.6-2.2) MMOL/L Procalcitonin NG/ML Specimen Hemolysis < 15 (0-25) - Radiology Data Attestation: I reviewed the patient's radiology results. - EKG Data EKG #1 EKG attestation: Yes: I reviewed and interpreted this EKG. EKG shows normal: sinus rhythm, axis, intervals, QRS complexes Rate: normal Interpretation: nonspecific ST-T wave changes Critical Care Time Critical Care Time: Yes Total Critical Care Time: 35 Attestation: 35 min of critical care time assigned to this case due to its urgency, complexity of decision making, need for continued patient re-evaluation, or resources devoted to stabilizing the patient. Disposition Clinical Impression: Pyelonephritis Sepsis Qualifiers: Sepsis type: sepsis due to unspecified organism Qualified Code(s): A41.9 - Sepsis, unspecified organism Print Language: French Condition: Improved Prescriptions: No Action Divalproex Sodium [Depakote] 500 mg PO QAM #0 Allopurinol 300 mg PO DAILY #0 Benztropine Mesylate 1 mg PO BID #0 Vit C/E/Zn/Coppr/Lutein/Zeaxan [Preservision Areds 2 Softgel] 1 cap PO BID #0 Divalproex Sodium 250 mg PO HS #0 Ultimate Pro Support 1 tab PO DAILY Cetirizine [Zyrtec] 10 mg PO DAILY [place]-3 Acid Ethyl Esters 2 gm PO BID Levothyroxine Sodium [Levothyroxine Sodium] 100 mcg PO ACB Ciprofloxacin HCl [Ciprofloxacin HCl] 500 mg PO Q12H Bentotiamine 2 tab PO BID Carvedilol [Coreg] 12.5 mg PO BID #0 Divalproex [Depakote] 1,000 mg PO HS #0 Triamterene/Hydrochlorothiazid [Triamterene-Hctz 75-50 mg Tab] 0.5 tab PO DAILY #0 Dapagliflozin/Metformin HCl [Xigduo Xr 5 mg-1,000 mg Tablet] 1 tab PO BID #0 Montelukast Sodium 10 mg PO HS #0 Alamax Cr 1 tab PO DAILY Insulin Degludec [Tresiba Flextouch U-100] 100 unit SQ HS Paliperidone [Paliperidone ER] 6 mg PO DAILY Referrals: Nirav Noland II, MD [Family Provider] - Time of Disposition: 10:52 - Seen By: physician
[2017-06-15] MEDS ORDERED: LR 1,000 ML IV SCH (09:45)
[2017-06-15] MEDS ORDERED: NS 1,000 ML IV ONE (10:03)
[2017-06-15] MEDS: SALINE FLUSH 10ml SYRINGE IVF PRN (10:26)
--- OUTSIDE RECORDS SUMMARY | 2017-06-15 10:44 | External Medical Summary ---
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
--- OUTSIDE RECORDS SUMMARY | 2017-06-15 10:45 | External Medical Summary | Summary of Care ---
:1960 Author Name Adeel Mccray M.D. 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 Refills: 0 Start 07-Dec-2015 Active [place] 3 1000 MG Oral Capsule TAKE 2 CAPSULE Twice daily Refills: 0 Start 07-Dec-2015 Active Allopurinol 300 MG Oral Tablet TAKE 1 TABLET DAILY DIRECTED. Refills: 0 Start 07-Dec-2015 Active Paliperidone ER 6 MG Oral Tablet Extended Release 24 Hour TAKE 1 TABLET DAILY. Refills: 0 Start 07-Dec-2015 Active Triamterene-HCTZ 37.5-25 MG Oral Capsule TAKE 1 CAPSULE DAILY. Refills: 0 Start 07-Dec-2015 Active Levothyroxine Sodium 100 MCG Oral Tablet TAKE 1 TABLET DAILY. Refills: 0 Adeel Mccray M.D. Start 07-Dec-2015 Active Divalproex Sodium 500 MG Oral Tablet Delayed Release 500mg in the AM and 1500mg in the evening Refills: 0 Start 07-Dec-2015 Active Cetirizine HCl - 10 MG Oral Tablet TAKE 1 TABLET DAILY. Refills: 0 Start 07-Dec-2015 Active Carvedilol 12.5 MG Oral Tablet TAKE 1 TABLET TWICE DAILY. Refills: 0 Start 07-Dec-2015 Active Xigduo XR 5-1000 MG Oral Tablet Extended Release 24 Hour Take 1 tablet twice daily Refills: 0 Cho M.D., Adeel Start 17-Dec-2015 Active Tamsulosin HCl - 0.4 MG Oral Capsule TAKE 1 CAPSULE Bedtime Quantity: 30 Refills: 0 Cho M.D., Adeel Start 17-Dec-2015 Active Alpha Lipoic Acid 200 MG Oral Capsule TAKE DIRECTED. Refills: 0 Cho M.D., Adeel Start 06-Dec-2016 Active PreserVision AREDS Oral Capsule TAKE DIRECTED. Refills: 0 Cho M.D., Adeel Start 06-Dec-2016 Active Benfotiamine 150 MG Oral Capsule Refills: 0 Cho M.D., Adeel Start 06-Dec-2016 Active Divalproex Sodium 250 MG Oral Tablet Delayed Release TAKE 1 TABLET AT BEDTIME. Refills: 0 Cho M.D., Adeel Start 06-Dec-2016 Active Singulair 10 MG Oral Tablet TAKE 1 TABLET AT BEDTIME. 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: Resolved History of Intractable nausea and vomiting (536.2, R11.2) Status: Resolved History of Obstructive sleep apnea (327.23, G47.33) Status: Resolved History of type 2 diabetes mellitus (V12.29, Z86.39) Status: Resolved Procedures Procedure Dates Details Procedures not documented Immunization Name Dates Details Immunizations not documented Family History Mother Name Dates Details No pertinent family history Status: Active Social History Name Dates Details - Status: Smoking Status Name Dates Details Never smoker Vital Signs Date Test Result Details 06-Dec-2016 13:20 BP Systolic 166 mm[Hg] Status: Comments: Location: ; Position: BP Diastolic 104 mm[Hg] Status: Comments: Location: ; Position: Heart Rate 91 /min Status: Comments: Location: ; Height 68 in Status: Weight 220 lb Status: Body Mass Index Calculated 33.45 kg/m2 Status: Body Surface Area Calculated 2.13 m2 Status: Results Date Description Value Details 21-Dec-2016 07:51 CYTOLOGY - URINE 4444 CYTOLOGY Specimen referred to [facility]. Report to follow. Plan of Care Name Dates Details Planned Observations Planned Goals not documented Instructions Name Dates Details Instructions not documented Encounters Appointment; Adeel Mccray M.D. On 20-Dec-2016 Encounter Diagnosis: Problem not documented 13:00 Appointment; Adeel Mccray M.D. On 06-Dec-2016 Encounter Diagnosis: Problem not documented 13:15 Appointment; Adeel Mccray M.D. On 31-Dec-2015 Encounter Diagnosis: Problem not documented 13:30 Appointment; Adeel Mccray M.D. On 24-Dec-2015 Encounter Diagnosis: Problem not documented 13:30 Appointment; Adeel Mccray M.D. On 17-Dec-2015 Encounter Diagnosis: Problem not documented 14:30
--- OUTSIDE RECORDS SUMMARY | 2017-06-15 10:45 | External Medical Summary ---
:1960 Author Organization [employer]Works Care Team Providers Name Role Phone Aleksandra Higgins Provider Role Unavailable Allergies No Known Allergies Problems Problem Type Condition Code Onset Dates Condition Status Problem Personality disorder, unspecified F60.9 Active Problem Bipolar disorder, current episode F31.2 Active manic severe with psychotic features Medications Medication Code System Code Instructions Start Date End Date Status Dosage [facility] [address] 6 MG Orally Once Jul 05, 1 tablet -30 a day in AM 2014 Results No Known Results Summary Purpose eClinicalWorks Submission
--- OUTSIDE RECORDS SUMMARY | 2017-06-15 10:45 | External Medical Summary | Summary of Care ---
:1960 Author Name Adeel Mccray M.D. Address [address] [place] [address] [place] [address] Care Team Providers Name Role Phone Mahendra [...] TWICE DAILY. Refills: 0 Start 07-Dec-2015 Active Bruno 3 1000 MG Oral Capsule TAKE 2 [...] Z86.39) Status: Resolved Procedures Procedure Dates Details CYTOLOGY - URINE 4444 Ordered: 20-Dec-2016 Immunization Name Dates Details Immunizations not documented [...] m2 Status: Results Date Description Value Details Results not documented Plan of Care Name Dates Details Planned Observations Planned Goals not documented Interventions Provided Labs/Procedures/ImagingCYTOLOGY - URINE 4444; To be Done: 20 Dec 2016 Instructions Name Dates Details Instructions not documented Encounters Appointment; Adeel Mccray M.D. On 06-Dec-2016 Encounter Diagnosis: Problem not documented 13:15 Appointment; Adeel Mccray M.D. On 31-Dec-2015 Encounter Diagnosis: Problem not documented 13:30 Appointment; Adeel Mccray M.D. On 24-Dec-2015 Encounter Diagnosis: Problem not documented 13:30 Appointment; Adeel Mccray M.D. On 17-Dec-2015 Encounter Diagnosis: Problem not documented 14:30
--- OUTSIDE RECORDS SUMMARY | 2017-06-15 10:45 | External Medical Summary | Summary of Care ---
:1960 Author Name Adeel Mccray M.D. Address [address] [place] [address] [place] [address] Care Team Providers Name Role Phone Mahendra Fabian, Adeel Unavailable Unavailable Nirav Noland II Unavailable Unavailable Unavailable Unavailable Unavailable Functional Status Functional Status Health Issues Name Dates Details Functional status health issues are not documented Status: Cognitive Status Health Issues Name Dates Details Cognitive status health issues are not documented Status: Problems Name Dates Details Gross hematuria (599.71, R31.0) Status: Active Bladder wall thickening (596.89, N32.89) Status: Active Frequency of urination (788.41, R35.0) Status: Active Urinary retention (788.20, R33.9) Status: Active 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) Status: Resolved History of Intractable nausea and vomiting (536.2, R11.2) Status: Resolved History of Obstructive sleep apnea (327.23, G47.33) Status: Resolved History of type 2 diabetes mellitus (V12.29, Z86.39) Status: Resolved Procedures Procedure Dates Details History Of Prior Surgery URINE CULTURE [id number] Ordered: 09-Jan-2017 Immunization Name Dates Details Immunizations not documented Family History Mother Name Dates Details No pertinent family history Status: Active Father Name Dates Details No pertinent family history Status: Active Social History Name Dates Details - Status: Smoking Status Name Dates Details Never smoker Vital Signs Date Test Result Details 09-Jan-2017 15:22 BP Systolic 133 mm[Hg] Status: Comments: Location: ; Position: BP Diastolic 89 mm[Hg] Status: Comments: Location: ; Position: Heart Rate 102 /min Status: Comments: Location: ; Results Date Description Value Details 21-Dec-2016 07:51 CYTOLOGY - URINE 4444 CYTOLOGY Specimen referred to [facility]. Report to follow. Plan of Care Name Dates Details Planned Observations Planned Goals not documented Planned Encounters Appointment; Provider: Adeel cMcray M.D. On 13:30 Interventions Provided Labs/Procedures/ImagingURINE CULTURE [id number]; To be Done: 09 Jan 2017 Instructions Name Dates Details Instructions not documented [...]
--- OUTSIDE RECORDS SUMMARY | 2017-06-15 10:45 | External Medical Summary ---
:1960 Author Organization eClinicalWorks Care Team Providers Name Role Phone Aleksandra Higgins Provider Role Unavailable Allergies, Adverse Reactions, Alerts Substance Reaction Event Type Penicillin Info Not Available Drug Allergy Problems Problem Type Condition Code Onset Dates Condition Status Problem Personality disorder, unspecified F60.9 Active Assessment Bipolar disorder, current episode F31.2 Active manic severe with psychotic features Problem Bipolar disorder, current episode F31.2 Active manic severe with psychotic features Assessment Other salvage determiner (current) drug Z79.899 Active therapy Medications Medication Code Code Instructions Start End Status Dosage System Date Date Zyrtec Allergy [facility] [address]-01 10 MG Orally 1 tablet Once a day Triamterene-HCTZ [facility] [address]-32 37.5-25 MG 1/2 tablet Orally Once a in the day morning DiphenhydrAMINE [facility] [address]-15 25 MG Orally Dec , 1-2 HCl (Sleep) Once a day 2014 capsules at bedtime as needed Invega [facility] [address]-32 6 MG Orally Oct 19, 1 tablet Once a day in 2014 AM Levothyroxine [facility] [address]-52 100 MCG Orally 1 tablet Sodium Once a day on an empty stomach in the morning Levemir [facility] [address]-99 100 UNIT/ML 50 units Subcutaneous as directed for Diabetes Benfotiamine [facility] 96477-36470 150 MG Orally 1 capsu 4 times a day Trulicity [facility] [address]-89 0.75 mg/0.5 mL not subcutaneous defined Once a week Divalproex Sodium [facility] [address]-89 500 MG Orally Oct 26, 1 tab in Twice a day 2014 am and 3 tabs at bedtime Benztropine [facility] 54026334972 1 mg Orally take one Mesylate Three times tablet by per day as mouth needed for three muscle times per tightness/rest day lessness Carvedilol [facility] [address]-37 25 MG Orally 1 tablet Twice a day with food Fish Oil [facility] [address]-54 1000 MG Orally 2 capsule Twice a day Procedures Procedure Coding System Code Date OFFICE VISIT, EST-LOW COMPLEXITY (15 MIN.) CPT-4 10496 March 28, 2016 Vital Signs Date/Time: March 28, 2016 Temperature 99.0 F Height 64.5 in Weight 219.8 lbs Blood Pressure Diastolic 78 mm Hg Blood Pressure Systolic 110 mm Hg Cardiac Monitoring Heart Rate 84 /min BMI 37.14 Index Respiratory Rate 22 /min Results No Known Results Summary Purpose eClinicalWorks Submission
--- OUTSIDE RECORDS SUMMARY | 2017-06-15 10:45 | External Medical Summary | Summary of Care ---
:1960 Author Name Virginia Martinez PA-C Address [address] [place], [place] [id number] Care Team Providers Name Role Phone Adeel Mccray M.D. Unavailable Unavailable Nirav Noland II Unavailable Unavailable [...] TWICE DAILY. Refills: 0 Start 07-Dec-2015 Active [place] 3 1000 MG Oral Capsule TAKE 2 [...] Details History Of Prior Surgery URINE CULTURE [id number] Ordered: 09-Jan-2017 Immunization Name Dates Details Immunizations [...] - URINE 4444 CYTOLOGY Specimen referred to [facility]. Report to follow. Plan of Care Name Dates Details Planned Observations Planned Goals not documented Planned Encounters Appointment; Provider: Adeel Mccray M.D. On 13:30 Interventions Provided Labs/Procedures/ImagingURINE CULTURE [id number]; To be Done: 09 Jan 2017 Instructions [...]
--- OUTSIDE RECORDS SUMMARY | 2017-06-15 10:45 | External Medical Summary ---
[...] Active manic severe with psychotic features Assessment Personality disorder, unspecified F60.9 Active Assessment Other ferry terminal agent (current) drug Z79.899 Active therapy Medications Medication Code Code Instructions Start End Status Dosage System Date Date Benztropine [facility] 95050878928 1 Orally take one Mesylate tablet by mouth twice a day Divalproex Sodium [facility] [address]-11 500 MG Orally Oct 26, 1 tab in Twice a day 2014 am and 3 tabs at bedtime Levothyroxine [facility] [address]-08 75 MCG Orally 1 tablet Sodium Once a day on an empty stomach in the morning DiphenhydrAMINE [facility] [address]-26 25 MG Orally Dec 29, 1-2 HCl (Sleep) Once a day 2015 capsules at bedtime as needed Triamterene-HCTZ [facility] [address]-89 37.5-25 MG 1/2 tablet Orally Once a in the day morning Benfotiamine [facility] 35850-41828 150 MG Orally 1 capsu 4 times a day Invega [facility] [address]-30 6 MG Orally Oct 19, 1 tablet Once a day in 2014 AM Levemir [facility] [address]-39 100 UNIT/ML 50 units Subcutaneous as directed for Diabetes Fish Oil [facility] [address]-77 1000 MG Orally 2 capsule Twice a day Carvedilol [facility] [address]-35 25 MG Orally 1 tablet Twice a day with food Zyrtec Allergy [facility] [address]-62 10 MG Orally 1 tablet Once a day Avastin [facility] [address]-76 100 MG/4ML not Intravenous defined Procedures Procedure Coding System Code Date COMPLETE CBC W/AUTO DIFF WBC CPT-4 60802 Sep 14, 2015 TSH WITH REFLEX T4 CPT-4 38136 Sep 14, 2015 OFFICE VISIT, EST-MOD. COMPLEXITY (25 MIN) CPT-4 06272 Sep 14, 2015 IH CMP CPT-4 44541 Sep 14, 2015 VALPROIC ACID CPT-4 68867 Sep 14, 2015 IH LIPID PANEL CPT-4 66210 Sep 14, 2015 Vital Signs Date/Time: Sep 14, 2015 Height 64.5 in Weight 224.12 lbs Temperature 99.6 F Blood Pressure Diastolic 82 mm Hg Blood Pressure Systolic 130 mm Hg Cardiac Monitoring Heart Rate 78 /min BMI 37.87 Index Respiratory Rate 20 /min Results No Known Results Summary Purpose eClinicalWorks Submission
--- OUTSIDE RECORDS SUMMARY | 2017-06-15 10:45 | External Medical Summary | Summary of Care ---
:1960 Author Name Adeel Mccray M.D. Address [address] [place] [address] [place] [address] Care Team Providers Name Role Phone Mahendra [...] TWICE DAILY. Refills: 0 Start 07-Dec-2015 Active [place]on 3 1000 MG Oral Capsule TAKE 2 [...] Procedure Dates Details History Of Prior Surgery Procedures not documented Immunization Name Dates Details [...] - URINE 4444 CYTOLOGY Specimen referred to [facility]. Report to follow. 12-Jan-2017 08:08 URINE CULTURE [id number] Comments: Clupedia performed at: [facility], [address] [place] [address], [address] [place] [address], Special Education Supervisor: Adeel Galarza D.O., [facility] Date/Time: [id number] Results Received Date/Time: [id number] Reported Date /Time: [id number] FASTING:NOQuest performed at : [facility], [address] [place], [place], [address] [place] [address], Special Education Supervisor: Adeel Galarza D.O., [facility] Collection Date/Time: [id number] Results Received Date/Time: [id number] Reported Date/Time: [id number] 0 FASTING:NOQuest performed at: [facility], [address] [place] [address], [address] [place] [address], Special Education Supervisor: Adeel Galarza D.O., [facility] Collection Date/ Time: [id number] Results Received Date/Time: [id number] Reported Date/Time: [id number] FASTING:NO CULTURE, URINE, ROUTINE SEE NOTE (Abnormal) Comments: CULTURE, URINE, ROUTINE MICRO NUMBER: [id number] TEST STATUS: FINAL SPECIMEN SOURCE : URINE, CATHETER SPECIMEN QUALITY: ADEQUATE RESULT: 50,000-100, 000 CFU/mL of Enterococc us species COMMENT: Additional organism(s) less than 10,000 CFU/mL isolated. These organisms, commonly found on external and internal genitalia, are co nsidered colonizers. No further testing performed. Enterococcus sp. -- INT MICHAEL AMPICILLIN S <=2 NITROFURANTOIN S <=16 VANCOMYCIN S 1S=Susceptible I=Intermediate R=Resistant *=Not TestedNR=Not Reported NN=See Therapy Comments[KS]----- Plan of Care Name Dates Details Planned Observations Planned Goals not documented Planned Encounters Appointment; Provider: Adeel Mccray M.D. On 13:30 Instructions Name Dates Details Instructions not documented Encounters Appointment; Adeel Mccray M.D. On 09-Jan-2017 Encounter Diagnosis: Problem not documented 14:30 Appointment; Adeel Mccray M.D. On 20-Dec-2016 Encounter [...]
--- OUTSIDE RECORDS SUMMARY | 2017-06-15 10:45 | External Medical Summary | Summary of Care ---
:1960 Author Name Adeel Mccray M.D. Address [address] [place] [address] [place] [address] Care Team Providers Name Role Phone Adeel Mccray M.D. Unavailable Unavailable Verify PCP Primary Care Provider Unavailable Functional Status Functional Status Health Issues Name Dates Details Functional status health issues are not documented Status: Cognitive Status Health Issues Name Dates Details Cognitive status health issues are not documented Status: Problems Name Dates Details Urinary retention (788.20, R33.9) Status: Active BPH with obstruction/lower urinary tract symptoms (600.01, N40.1) Status: Active Medications Name Dates Details MetFORMIN HCl - 1000 MG Oral Tablet TAKE 1 TABLET EVERY 12 HOURS. Refills: 0 Started 07-Dec-2015 ActiveBenztropine Mesylate 1 MG Oral Tablet TAKE 1 TABLET TWICE DAILY. Refills: 0 Started 07-Dec-2015 ActiveOmega 3 1000 MG Oral Capsule TAKE 1 CAPSULE DAILY. Refills: 0 Started 07-Dec-2015 ActiveAllopurinol 300 MG Oral Tablet TAKE 1 TABLET DAILY DIRECTED. Refills: 0 Started 07-Dec-2015 ActivePaliperidone ER 6 MG Oral Tablet Extended Release 24 Hour TAKE 1 TABLET DAILY. Refills: 0 Started 07-Dec-2015 ActiveTriamterene-HCTZ 37.5-25 MG Oral Capsule TAKE 1 CAPSULE DAILY. Refills: 0 Started 07-Dec-2015 ActiveLevothyroxine Sodium 100 MCG Oral Tablet TAKE 1 TABLET DAILY. Refills: 0 Adeel Mccray M.D. Started 07-Dec-2015 ActiveDivalproex Sodium 500 MG Oral Tablet Delayed Release TAKE 1 TABLET AT BEDTIME. Refills: 0 Started 07-Dec-2015 ActiveCetirizine HCl - 10 MG Oral Tablet TAKE 1 TABLET DAILY. Refills: 0 Started 07-Dec-2015 ActiveCarvedilol 12.5 MG Oral Tablet TAKE 1 TABLET TWICE DAILY. Refills: 0 Started 07-Dec-2015 Active Allergies and Adverse Reactions Name Dates Details Penicillins Onset:04-Dec-2015 Reaction: Anaphylaxis (Severe) Status: Active Past Medical History Name Dates Details History of Bipolar depression (296.50, F31.30) Status: Resolved History of hypertension (V12.59, Z86.79) Status: Resolved History of hypothyroidism (V12.29, Z86.39) Status: Resolved History of Intractable nausea and vomiting (536.2, R11.2) Status: Resolved History of Obstructive sleep apnea (327.23, G47.33) Status: Resolved History of type 2 diabetes mellitus (V12.29, Z86.39) Status: Resolved Procedures Procedure Dates Details Procedures not documented Immunization Name Dates Details Immunizations not documented Social History Smoking StatusUnknown if ever smoked Vital Signs Date Test Result Details No Known Vitals to report Results Date Description Value Details Results not documented Plan of Care Planned Observations Name Dates Details Planned Goals not documented Goal Planned Encounters Appointment; Provider: Adeel Mccray On 07-Dec-2015 11:45 Instructions Instructions not documented Encounters No Encounter data documented On 07-Dec-2015 Encounter Diagnosis: Problem not documented
--- OUTSIDE RECORDS SUMMARY | 2017-06-15 10:45 | External Medical Summary | Summary of Care ---
:1960 Author Name Adeel Mccray M.D. Address [address] [place] [address] [place] [address] Care Team Providers Name Role Phone Verify PCP Primary Care Provider Unavailable Functional Status Functional Status Health Issues Name Dates Details Functional status health issues are not documented Status: Cognitive Status Health Issues Name Dates Details Cognitive status health issues are not documented Status: Problems Name Dates Details Urinary retention (788.20, R33.9) Status: Active BPH with obstruction/lower urinary tract symptoms (600.01, N40.1) Status: Active Medications Name Dates Details Medication not documented Allergies and Adverse Reactions Name Dates Details Allergy history not documented Status: Procedures Procedure Dates Details Procedures not documented [...]
--- OUTSIDE RECORDS SUMMARY | 2017-06-15 10:45 | External Medical Summary | Summary of Care ---
:1960 Author Name Adeel Mccray M.D. Address [address] [place] [address] [place] [address] Care Team Providers Name Role Phone Adeel Mccray M.D. 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 Refills: 0 Started 07-Dec-2015 ActiveOmega 3 1000 MG Oral Capsule TAKE 2 CAPSULE Twice daily Refills: 0 Started 07-Dec-2015 ActiveAllopurinol 300 MG [...] and 1500mg in the evening Refills: 0 Started 07-Dec-2015 ActiveCetirizine HCl - 10 MG Oral Tablet TAKE 1 TABLET DAILY. Refills: 0 Started 07-Dec-2015 ActiveCarvedilol 12.5 MG Oral Tablet TAKE 1 TABLET TWICE DAILY. Refills: 0 Started 07-Dec-2015 ActiveXigduo XR 5-1000 MG Oral Tablet Extended Release 24 Hour Take 1 tablet twice daily Refills: 0 Adeel Mccray M.D. Started 17-Dec-2015 ActiveTamsulosin HCl - 0.4 MG Oral Capsule TAKE 1 CAPSULE Bedtime Quantity: 30 Refills: 0 Adeel Mccray M.D. Started 17-Dec-2015 ActiveBethanechol Chloride 25 MG Oral Tablet TAKE 1 TABLET 3 times daily Quantity: 90 Refills: 0 Adeel Mccray M.D. Started 17-Dec-2015 Active Allergies and Adverse Reactions Name Dates [...] Status: Active Social History Name Dates Details Smoking StatusNever smoker Vital Signs Date Test Result Details 31-Dec-2015 13:34 BP Systolic 133 mm[Hg] Status: BP Diastolic 80 mm[Hg] Status: Heart Rate 80 /min Status: Height 67.5 in Status: Weight 221 lb Status: Body Mass Index Calculated 34.1 kg/m2 Status: Body Surface Area Calculated 2.12 m2 Status: 24-Dec-2015 13:25 BP Systolic 137 mm[Hg] Status: BP Diastolic 84 mm[Hg] Status: Heart Rate 91 /min Status: Height 67.5 in Status: Weight 221 lb Status: Body Mass Index Calculated 34.1 kg/m2 Status: Body Surface Area Calculated 2.12 m2 Status: 17-Dec-2015 13:31 BP Systolic 139 mm[Hg] Status: BP Diastolic 90 mm[Hg] Status: Heart Rate 102 /min Status: Height 67.5 in Status: Weight 221 lb Status: Body Mass Index Calculated 34.1 kg/m2 Status: Body Surface Area Calculated 2.12 m2 Status: Results Date Description Value Details Results not documented Plan of Care Planned Observations Name Dates Details Planned Goals not documented Goal Planned Encounters Appointment; Provider: Adeel Mccray On 07-Dec-2015 11:45 Instructions Instructions not documented Encounters Appointment; Adeel Mccray On 31-Dec-2015 Encounter Diagnosis: Problem not documented 13:30 Appointment; Adeel Mccray On 24-Dec-2015 Encounter Diagnosis: Problem not documented 13:30 Appointment; Adeel Mccray On 17-Dec-2015 Encounter Diagnosis: Problem not documented 14:30
--- OUTSIDE RECORDS SUMMARY | 2017-06-15 10:45 | External Medical Summary ---
:1960 Author Organization eClinicalWorks Care Team Providers Name Role Phone Aleksandra Higgins Provider Role Unavailable Allergies No Known Allergies Problems Problem Type Condition Code Onset Dates Condition Status Problem Bipolar disorder, current episode F31.2 Active manic severe with psychotic features Problem Personality disorder, unspecified F60.9 Active Problem Other usp (current) drug Z79.899 Active therapy Assessment Other usp (current) drug Z79.899 Active therapy Medications Medication Code System Code Instructions Start End Date Status Dosage Date Divalproex NDC 42108-15 500 MG Orally Jul 12, 1 tab in am Sodium 41-01 Twice a day 2014 and 2 tabs at bedtime Divalproex NDC 71654-21 250 MG Orally April 04, 1 tablet Sodium 40-01 Once a day at 2015 bedtime (along with [id number]) Results No Known Results Summary Purpose eClinicalWorks Submission
--- OUTSIDE RECORDS SUMMARY | 2017-06-15 10:45 | External Medical Summary | Summary of Care ---
:1960 Author Name Adeel Mccray M.D. Address [address] [place] [address] [place] [address] Care Team Providers Name Role Phone Adeel [...] smoker Vital Signs Date Test Result Details 24-Dec-2015 13:25 BP Systolic 137 mm[Hg] Status: [...] not documented Goal Planned Encounters Appointment; Provider: Aedel Mccray On 07-Dec-2015 11:45 Instructions Instructions not documented Encounters Appointment; Adeel Mccray On 24-Dec-2015 Encounter Diagnosis: Problem not documented 13:30 Appointment; Adeel Mccray On 17-Dec-2015 Encounter Diagnosis: Problem not documented 14:30
--- OUTSIDE RECORDS SUMMARY | 2017-06-15 10:45 | External Medical Summary ---
:1960 Author Organization eClinicalWorks Care Team Providers Name Role Phone HigginsAleksandra Provider Role Unavailable Allergies No Known Allergies Problems Problem Type Condition Code Onset Dates Condition Status Problem Bipolar disorder, current episode F31.2 Active manic severe with psychotic features Problem Personality disorder, unspecified F60.9 Active Problem Other custodial (current) drug Z79.899 Active therapy Assessment Other custodial (current) drug Z79.899 Active therapy Medications Medication Code Code Instructions Start End Status Dosage System Date Date Triamterene-HCTZ [facility] [address]-84 37.5-25 MG 1/2 tablet Orally Once a in the day morning Levemir [facility] [address]-00 100 UNIT/ML 50 units Subcutaneous as directed for Diabetes Fish Oil [facility] [address]-59 1000 MG Orally 2 capsule Twice a day Trulicity [facility] [address]-77 0.75 mg/0.5 mL not subcutaneous defined Once a week Carvedilol [facility] [address]-75 25 MG Orally 1 tablet Twice a day with food Levothyroxine [facility] [address]-42 100 MCG Orally 1 tablet Sodium Once a day on an empty stomach in the morning Divalproex Sodium [facility] [address]-59 500 MG Orally Jul 12, 1 tab in Twice a day 2014 am and 2 tabs at bedtime Benztropine [facility] 23991756701 1 mg Orally take one Mesylate Three times tablet by per day as mouth needed for three muscle times per tightness/rest day lessness DiphenhydrAMINE [facility] [address]-90 25 MG Orally Sep 14, 1-2 HCl (Sleep) Once a day 2014 capsules at bedtime as needed Divalproex Sodium [facility] [address]-31 250 MG Orally March 1 tablet Once a day at 19, bedtime (along 2016 with [id number]) Zyrtec Allergy [facility] [address]-03 10 MG Orally 1 tablet Once a day Benfotiamine [facility] [address]053 150 MG Orally 1 capsu 4 times a day Invega [facility] [address]-49 6 MG Orally Oct 19, 1 tablet Once a day in 2014 AM Procedures Procedure Coding System Code Date VALPROIC ACID CPT-4 52901 Apr 17, 2016 Results No Known Results Summary Purpose eClinicalWorks Submission
--- OUTSIDE RECORDS SUMMARY | 2017-06-15 10:45 | External Medical Summary ---
:1960 Author Organization eClinicalWorks Care Team Providers Name Role Phone Aleksandra Higgins Provider Role Unavailable Allergies, Adverse Reactions, Alerts Substance Reaction Event Type Penicillin Info Not Available Drug Allergy Problems Problem Type Condition ICD-9 Code Onset Dates Condition Status Problem Unspecified personality disorder 301.9 Active Assessment Bipolar I disorder, most recent 296.44 Active episode (or current) manic, severe, specified as with psychotic behavior Problem Bipolar I disorder, most recent 296.44 Active episode (or current) manic, severe, specified as with psychotic behavior Assessment Unspecified personality disorder 301.9 Active Assessment Encounter for long-term V58.69 Active (current) use of other medications Medications Medication Code Code Instructions Start End Date Status Dosage System Date Fish Oil [facility] 37769-54 1000 MG Orally 2 capsule 71-40 Twice a day Carvedilol [facility] 52847-02 25 MG Orally 1 tablet 96-01 Twice a day with food Zyrtec Allergy [facility] 59496-72 10 MG Orally 1 tablet 04-43 Once a day Triamterene-HCTZ [facility] 11499-12 37.5-25 MG 1 tablet 52-01 Orally Once a in the day morning Divalproex Sodium [facility] 39402-68 500 MG Orally 1 tab in 41-01 Twice a day am and 3 tabs at bedtime Invega [facility] 84279-94 6 MG Orally Once 1 tablet 55-30 a day in AM Levemir [facility] 61204-73 100 UNIT/ML 50 units 87-12 Subcutaneous as directed for Diabetes Levothyroxine [facility] 61050-28 75 MCG Orally 1 tablet Sodium 55-00 Once a day on an empty stomach in the morning Benfotiamine [facility] 18891-96 150 MG Orally 4 1 capsu 142 times a day Benztropine [facility] 48582-72 1 MG Orally 1 tablet Mesylate 00-00 twice a day Procedures Procedure Coding System Code Date OFFICE VISIT, EST-MOD. COMPLEXITY (25 MIN) CPT-4 13084 March 16, 2015 Vital Signs Date/Time: March 16, 2015 Height 64.5 in Weight 225 lbs Temperature 99.2 F Blood Pressure Diastolic 78 mm Hg Blood Pressure Systolic 130 mm Hg Cardiac Monitoring Heart Rate 68 /min BMI 38.02 Index Respiratory Rate 20 /min Results No Known Results Summary Purpose eClinicalWorks Submission
--- OUTSIDE RECORDS SUMMARY | 2017-06-15 10:46 | External Medical Summary ---
[...] behavior Assessment Unspecified personality disorder 301.9 Active Medications Medication Code Code Instructions Start End Date Status Dosage System Date Zyrtec Allergy [facility] 29202-30 10 MG Orally 1 tablet 04-43 Once a day Benfotiamine [facility] 40378-56 150 MG Orally 4 1 capsu 142 times a day Fish Oil [facility] 08153-65 1000 MG Orally 1 capsule 71-40 Twice a day Levemir [facility] 11738-09 100 UNIT/ML 14.2mg/ml 87-12 Subcutaneous as directed for Diabetes Levothyroxine [facility] 48268-81 75 MCG Orally 1 tablet Sodium 55-00 Once a day on an empty stomach in the morning Triamterene-HCTZ [facility] 63000-17 37.5-25 MG 1 tablet 52-01 Orally Once a in the day morning Divalproex Sodium [facility] 98812-48 500 MG Orally 1 tab in 41-01 Twice a day am and 3 tabs at bedtime Invega [facility] 19246-65 6 MG Orally Once 1 tablet 55-30 a day in AM Carvedilol [facility] 50285-62 25 MG Orally 1 tablet 96-01 Twice a day with food Benztropine [facility] 38477-45 1 MG Orally 1 tablet Mesylate 00-00 twice a day Procedures Procedure Coding System Code Date OFFICE VISIT, EST-MOD. COMPLEXITY (25 MIN) CPT-4 72762 December 15, 2014 Vital Signs Date/Time: December 15, 2014 Height 64.5 in Weight 226 lbs Temperature 99.6 F Blood Pressure Diastolic 80 mm Hg Blood Pressure Systolic 128 mm Hg Cardiac Monitoring Heart Rate 60 /min BMI 38.19 Index Respiratory Rate 18 /min Results No Known Results Summary Purpose eClinicalWorks Submission
--- OUTSIDE RECORDS SUMMARY | 2017-06-15 10:46 | External Medical Summary | Summary of Care ---
:1960 Author Name Adeel Mccray M.D. Address [address] [place] [address] [place] [address] Care Team Providers Name Role Phone Mahendra [...] TWICE DAILY. Refills: 0 Start 07-Dec-2015 Active [place] 3 1000 MG Oral Capsule TAKE 2 [...]
--- OUTSIDE RECORDS SUMMARY | 2017-06-15 10:46 | External Medical Summary ---
:1960 Author Organization eClinicalWorks Care Team Providers Name Role Phone Rex Higginse Provider Role Unavailable Allergies No Known Allergies Problems Problem Type Condition Code Onset Dates Condition Status Problem Personality disorder, unspecified F60.9 Active Assessment Other gum puller (current) drug Z79.899 Active therapy Problem Bipolar disorder, current episode F31.2 Active manic severe with psychotic features Medications Medication Code Code Instructions Start End Status Dosage System Date Date Benfotiamine [facility] [address] 150 MG Orally 1 capsu 4 times a day Benztropine [facility] 14166331168 1 mg Orally take one Mesylate Three times tablet by per day as mouth needed for three muscle times per tightness/rest day lessness DiphenhydrAMINE [facility] [address]-45 25 MG Orally Dec 29, 1-2 HCl (Sleep) Once a day 2014 capsules at bedtime as needed Levothyroxine [facility] [address]-18 100 MCG Orally 1 tablet Sodium Once a day on an empty stomach in the morning Zyrtec Allergy [facility] [address]-40 10 MG Orally 1 tablet Once a day Divalproex Sodium [facility] [address]-95 500 MG Orally Oct 26, 1 tab in Twice a day 2014 am and 3 tabs at bedtime Invega [facility] [address]-50 6 MG Orally Oct 19, 1 tablet Once a day in 2014 AM Carvedilol [facility] [address]-70 25 MG Orally 1 tablet Twice a day with food Triamterene-HCTZ [facility] [address]-46 37.5-25 MG 1/2 tablet Orally Once a in the day morning Levemir [facility] [address]-81 100 UNIT/ML 50 units Subcutaneous as directed for Diabetes Fish Oil [facility] [address]-12 1000 MG Orally 2 capsule Twice a day Trulicity [facility] [address]-09 0.75 mg/0.5 mL not subcutaneous defined Once a week Procedures Procedure Coding System Code Date TSH WITH REFLEX T4 CPT-4 78478 March 31, 2016 VALPROIC ACID CPT-4 27828 March 31, 2016 COMPLETE CBC W/AUTO DIFF WBC CPT-4 54681 March 31, 2016 IH LIPID PANEL CPT-4 20731 March 31, 2016 IH CMP CPT-4 44866 March 31, 2016 Results Name Result Date Reference Range Unit Abnormality Flag In House CMP ----Total Protein 7.6 [id number] 6.4 - 8.1 G/DL ----EGFR >60 [id number] ----Alkaline Phosphatase 53 [id number] 53 - 128 u/L ----Creatinine 1.0 13124163 0.6 - 1.2 mg/DL ----BUN 25* [id number] 7 - 22 mg/DL ----Calcium 9.4 15956825 8.0 - 10.3 mg/DL ----Glucose 118 [id number] 73 - 118 mg/DL ----AST 30 18185034 11 - 38 u/L ----ALT 18 [id number] 10 - 47 u/L ----Albumin 3.5 38951316 3.3 - 5.5 g/DL ----Total Bilirubin 0.6 95678436 0.2 - 1.6 mg/DL ----Sodium 138 [id number] 128 - 145 mmol/L ----Potassium 4.2 81457409 3.6 - 5.1 mmol/L ----CO2 25 [id number] 18 - 33 mmol/L ----Chloride 100 53471307 98 - 108 mmol/L Summary Purpose eClinicalWorks Submission
--- OUTSIDE RECORDS SUMMARY | 2017-06-15 10:46 | External Medical Summary ---
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 Active therapy Medications Medication Code Code Instructions Start End Status Dosage System Date Date Trulicity [facility] [address]-94 0.75 mg/0.5 mL not subcutaneous defined Once a week Levemir [facility] [address]-56 100 UNIT/ML 50 units Subcutaneous as directed for Diabetes Divalproex Sodium [facility] [address]-39 250 MG Orally March 17 tablet Once a day at 19, bedtime (along 2016 with [id number]) Levothyroxine [facility] [address]-14 100 MCG Orally 1 tablet Sodium Once a day on an empty stomach in the morning Zyrtec Allergy [facility] [address]-78 10 MG Orally 1 tablet Once a day Fish Oil [facility] [address]-35 1000 MG Orally 2 capsule Twice a day Invega [facility] [address]-84 6 MG Orally Jul 05, 1 tablet Once a day in 2014 AM Benztropine [facility] [id number] 1 mg Orally take one Mesylate Three times tablet by per day as mouth needed for three muscle times per tightness/rest day lessness Divalproex Sodium [facility] [address]-24 500 MG Orally Oct , 1 tab in Twice a day 2014 am and 2 tabs at bedtime Triamterene-HCTZ [facility] [address]-01 37.5-25 MG 1/2 tablet Orally Once a in the day morning Benfotiamine [facility] 84233-98166 150 MG Orally 1 capsu 4 times a day DiphenhydrAMINE [facility] [address]-44 25 MG Orally Sep 14, 1-2 HCl (Sleep) Once a day 2014 capsules at bedtime as needed Carvedilol [facility] [address]-11 25 MG Orally 1 tablet Twice a day with food Procedures Procedure Coding System Code Date T4 FREE CPT-4 73471 Jul 05, 2016 TSH CPT-4 00962 Jul 05, 2016 COMPLETE CBC W/AUTO DIFF WBC CPT-4 99759 Jul 05, 2016 IH LIPID PANEL CPT-4 50482 Jul 05, 2016 IH CMP CPT-4 56944 Jul 05, 2016 Results No Known Results Summary Purpose eClinicalWorks Submission
--- OUTSIDE RECORDS SUMMARY | 2017-06-15 10:46 | External Medical Summary | Summary of Care ---
:1960 Author Name Adeel Mccray M.D. Address [address] [place] [address] [place] [address] Care Team Providers Name Role Phone Adeel [...] Planned Encounters Appointment; Provider: Adeel Mccray On 31-Dec-2015 13:30 Appointment; Provider: Adeel Mccray On 07-Dec-2015 11:45 Instructions Instructions not documented Encounters Appointment; Adeel Mccray On 24-Dec-2015 Encounter Diagnosis: Problem not documented 13:30 Appointment; Adeel Mccray On 17-Dec-2015 Encounter Diagnosis: Problem not documented 14:30
--- OUTSIDE RECORDS SUMMARY | 2017-06-15 10:46 | External Medical Summary | Summary of Care ---
:1960 Author Name Adeel Mccray M.D. 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
--- OUTSIDE RECORDS SUMMARY | 2017-06-15 10:46 | External Medical Summary ---
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 Active therapy Assessment Bipolar disorder, current episode F31.2 Active manic severe with psychotic features Assessment Personality disorder, unspecified F60.9 Active Medications Medication Code Code Instructions Start End Status Dosage System Date Date Triamterene-HCTZ [facility] [address]-67 37.5-25 MG 1/2 tablet Orally Once a in the day morning Fish Oil [facility] [address]-79 1000 MG Orally 2 capsule Twice a day Divalproex Sodium [facility] [address]-50 250 MG Orally March 1 tablet Once a day at 19, bedtime (along 2015 with [id number]) Trulicity [facility] [address]-96 0.75 mg/0.5 mL not subcutaneous defined Once a week Carvedilol [facility] [address]-57 25 MG Orally 1 tablet Twice a day with food Divalproex Sodium [facility] [address]-05 500 MG Orally Oct , 1 tab in Twice a day 2014 am and 2 tabs at bedtime Benztropine [facility] [id number] 1 mg Orally take one Mesylate Three times tablet by per day as mouth needed for three muscle times per tightness/rest day lessness Zyrtec Allergy [facility] [address]-90 10 MG Orally 1 tablet Once a day Benfotiamine [facility] [address]094 150 MG Orally 1 capsu 4 times a day Invega [facility] [address]-93 6 MG Orally Oct 19, 1 tablet Once a day in 2014 AM Levothyroxine [facility] [address]-48 100 MCG Orally 1 tablet Sodium Once a day on an empty stomach in the morning Levemir [facility] [address]-03 100 UNIT/ML 50 units Subcutaneous as directed for Diabetes DiphenhydrAMINE [facility] [address]-90 25 MG Orally Sep 14, 1-2 HCl (Sleep) Once a day 2014 capsules at bedtime as needed Procedures Procedure Coding System Code Date OFFICE VISIT, EST-MOD. COMPLEXITY (25 MIN) CPT-4 88698 Jun 30, 2016 Vital Signs Date/Time: Jun 30, 2016 Temperature 98.6 F Height 64.5 in Weight 224.4 lbs Respiratory Rate 20 /min Blood Pressure Diastolic 86 mm Hg Blood Pressure Systolic 128 mm Hg Cardiac Monitoring Heart Rate 80 /min Results No Known Results Summary Purpose eClinicalWorks Submission
--- OUTSIDE RECORDS SUMMARY | 2017-06-15 10:46 | External Medical Summary | Summary of Care ---
:1960 Author Name Adeel Mccray M.D. Address [address] [place] [address] [place] [address] Care Team Providers Name Role Phone Adeel [...]
--- OUTSIDE RECORDS SUMMARY | 2017-06-15 10:46 | External Medical Summary ---
:1960 Author Organization eClinicalWorks Care Team Providers Name Role Phone Robby Breenora Provider Role Unavailable Allergies No Known Allergies Problems Problem Type Condition Code Onset Dates Condition Status Problem Bipolar disorder, current episode F31.2 Active manic severe with psychotic features Problem Personality disorder, unspecified F60.9 Active Problem Other halfway (current) drug Z79.899 Active therapy Assessment Bipolar disorder, current episode F31.2 Active manic severe with psychotic features Assessment Personality disorder, unspecified F60.9 Active Medications Medication Code Code Instructions Start End Status Dosage System Date Date Zyrte Allergy [facility] [address]-23 10 MG Orally 1 tablet Once a day Triamterene-HCTZ [facility] [address]-04 37.5-25 MG 1/2 tablet Orally Once a in the day morning Carvedilol [facility] [address]-96 25 MG Orally 1 tablet Twice a day with food Trulicity [facility] [address]-10 0.75 mg/0.5 mL not subcutaneous defined Once a week Divalproex Sodium [facility] [address]-89 250 MG Orally March 1 tablet Once a day at 19, bedtime (along 2015 with [id number]) Levemir [facility] [address]-48 100 UNIT/ML 50 units Subcutaneous as directed for Diabetes Fish Oil [facility] [address]-79 1000 MG Orally 2 capsule Twice a day Divalproex Sodium [facility] [address]-08 500 MG Orally Oct , 1 tab in Twice a day 2014 am and 2 tabs at bedtime DiphenhydrAMINE [facility] [address]-30 25 MG Orally Dec , 1-2 HCl (Sleep) Once a day 2014 capsules at bedtime as needed Benztropine [facility] [id number] 1 mg Orally take one Mesylate Three times tablet by per day as mouth needed for three muscle times per tightness/rest day lessness Benfotiamine [facility] [address]181 150 MG Orally 1 capsu 4 times a day Levothyroxine [facility] [address]-17 100 MCG Orally 1 tablet Sodium Once a day on an empty stomach in the morning Invega [facility] [address]-23 6 MG Orally Jul 05, 1 tablet Once a day in 2014 AM Procedures Procedure Coding System Code Date VALPROIC ACID CPT-4 98894 Jun 30, 2016 Results No Known Results Summary Purpose eClinicalWorks Submission
--- OUTSIDE RECORDS SUMMARY | 2017-06-15 10:46 | External Medical Summary | Summary of Care ---
:1960 Author Name Adeel Mccray M.D. 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 Refills: 0 Start 07-Dec-2015 Active [place] 3 1000 MG Oral Capsule TAKE 2 [...] Encounters Appointment; Provider: Adeel Mccray M.D. On 20-Dec-2016 13:00 Instructions Name Dates Details Instructions not documented Encounters Appointment; Adeel Mccray M.D. On 31-Dec-2015 Encounter Diagnosis: Problem not documented 13:30 Appointment; Adeel Mccray M.D. On 24-Dec-2015 Encounter Diagnosis: Problem not documented 13:30 Appointment; Adeel Mccray M.D. On 17-Dec-2015 Encounter Diagnosis: Problem not documented 14:30
--- NOTE | 2017-06-15 11:14 | XRay Report ---
Indication: Possible sepsis PROCEDURE: XR chest 1V: Encounter: Initial Comparison: January 15, 2016 Findings: The lungs are stable in appearance without new focal airspace consolidation. There is no pleural effusion or pneumothorax. The heart size, pulmonary vascularity and mediastinal contours are unchanged. IMPRESSION: Stable appearance of the chest without acute cardiopulmonary disease. .
[2017-06-15] MEDS ORDERED: ONDANSETRON 4 MG/2 ML INJECTION IVP PRN (11:46)
[2017-06-15] MEDS: NS 1,000 ML IV SCH ×2 (12:02→23:52)
--- NOTE | 2017-06-15 12:41 | History & Physical Report ---
<Ramya Jones V - Last Filed: 06/15/17 13:35> History of Present Illness Date: 06/15/17 Chief complaint: Weakness, Severe sepsis, UTI HPI: Mr Ramirez is a pleasant 56 yr old male who has had a history of hematuria and hydroureter. Patient has been under the primary care treatment of Dr. Noland for outpatient urinary tract infection. He initially was started on Cipro on . He was changed to Macrobid on 06/06/17, and then changed back to Cipro on . Despite antimicrobial coverage in the outpatient setting. He continued to have weakness and dysuria. Today he presented to the emergency room for acute evaluation. Return studies did reveal elevated white count at 14.0 with 15% bandemia. Hemoglobin stable at 13.6, platelets 131. Sodium is 144 , potassium 4.1, BUN elevated at 41 and creatinine elevated at 1.7. Baseline creatinine from 6 months ago was 1.0. Glucose was found to be elevated at 267. Initial venous lactate is elevated at 2.9, pro calcitonin 0.70. Urinalysis did reveal acute infection with 2+ protein, 3+ glucose, 3+ blood, 2+ leukocyte esterase, 5-10 RBCs, too numerous to count WBCs with 4+ bacteria and budding yeast. She was given IV fluid resuscitation of 30 ml/kg- 2800ml IV fluid along with IV Rocephin and IV vancomycin. The hospitalist services were contacted and accepted patient for inpatient admission for further evaluation and treatment. Patient is seen on initial examination. He is alert, oriented and pleasant. He states he is "weak as a kitten" for several weeks. He does report having some pain with urination. Denies having shortness of breath, chest pain, GI complaints. He has had decreased appetite recently. We did discuss advanced directives and he does wish to be a full code Review of Systems All systems PM: 10-point ROS was reviewed, no additional remarkable complaints except - Constitutional Constitutional: Present: anorexia, fatigue, weakness - Genitourinary Genitourinary: Present: as per HPI, dysuria PFSH Patient Stated Medical History Diabetes- Type 2 Hypertension Hyperlipidemia Hypothyroidism Depression IBS History small bowel obstruction BPH History of Atrial fibrillation Cataracts Bipolar Disorder History of hydroureter and hematuria Surgical History: Cataract extraction b/l. [place] cyst removed from back Family History: Strong hx of diabetes on maternal side. Maternal grandfather of colon cancer at age 60. Maternal grandmother had Parkinson's. Both paternal grandparents of cancer - esophageal cancer in grandfather and lung cancer in grandmother, paternal grandfather also had coronary artery disease. Father is 75, has COPD (was a structural welder) Mother sees a neurologist for neuropathy in legs, and also has bipolar, hyperlipidemia and hypothyroidism - Social History Smoking status: Never smoker Substance use type: does not use Alcohol intake frequency: does not drink Housing: house Household members: family Current residence: Apartment/Private Home Social history: PCP- Dr Noland Urologist- Dr Mccray Medications Home Medications Medication Instructions Recorded Confirmed Type Carvedilol [Coreg] 12.5 mg PO BID #0 07/01/10 06/15/17 History Divalproex Sodium [Depakote] 500 mg PO QAM #0 07/01/10 06/15/17 History Allopurinol 300 mg PO DAILY #0 12/04/15 06/15/17 History Benztropine Mesylate 1 mg PO BID #0 12/04/15 06/15/17 History Dapagliflozin/Metformin HCl 1 tab PO BID #0 12/04/15 06/15/17 History [Xigduo Xr 5 mg-1,000 mg Tablet] Divalproex [Depakote] 1,000 mg PO HS #0 12/04/15 06/15/17 History Triamterene/Hydrochlorothiazid 0.5 tab PO DAILY #0 12/04/15 06/15/17 History [Triamterene-Hctz 75-50 mg Tab] Vit C/E/Zn/Coppr/Lutein/Zeaxan 1 cap PO BID #0 12/04/15 06/15/17 History [Preservision Areds 2 Softgel] Divalproex Sodium 250 mg PO HS #0 12/02/16 06/15/17 History Montelukast Sodium 10 mg PO HS #0 12/02/16 06/15/17 History Alamax Cr 1 tab PO DAILY 06/15/17 06/15/17 History Bentotiamine 2 tab PO BID 06/15/17 06/15/17 History Cetirizine [Zyrtec] 10 mg PO DAILY 06/15/17 06/15/17 History Ciprofloxacin HCl [Ciprofloxacin 500 mg PO Q12H 06/15/17 06/15/17 History HCl] Insulin Degludec [Tresiba 20 unit SQ HS 06/15/17 06/15/17 History Flextouch U-100] Levothyroxine Sodium 100 mcg PO ACB 06/15/17 06/15/17 History [Levothyroxine Sodium] [place]-3 Acid Ethyl Esters 2 gm PO BID 06/15/17 06/15/17 History Paliperidone [Paliperidone ER] 6 mg PO DAILY 06/15/17 06/15/17 History Ultimate Pro Support 1 tab PO DAILY 06/15/17 06/15/17 History Allergies Allergy/AdvReac Type Severity Reaction Status Date / Time Penicillins Allergy Severe ANAPHYLACTIC Verified 06/15/17 09:20 SHOCK Exam Vital Signs: Temperature 98.6 F 06/15/17 11:35 Pulse Rate 90 06/15/17 11:35 Respiratory Rate 18 06/15/17 11:35 Blood Pressure 122/66 06/15/17 11:35 Pulse Oximetry 96 06/15/17 11:35 Height/Weight/BMI: Height 1.7 m Weight 94.6 kg Body Mass Index 32.6 - Constitutional Present: well nourished, well developed - Routine HEENT Exam Eye: Present: EOMI ENT: Present: mucous membranes moist, dentition normal - Routine Respiratory Exam Present: CTA bilaterally. Absent: wheezes - Routine Cardiovascular Exam Present: RRR, S1, S2. Absent: murmur - Routine Abdominal Exam Present: soft, normoactive bowel sounds, non distended. Absent: tenderness - Routine Extremities Exam Present: full ROM, normal capillary refill - Routine Back/Spine/Pelvis Exam Back/Spine: Present: full ROM - Routine Skin Exam Present: intact, dry, warm - Routine Neurological Exam Present: alert, oriented X3, CN II-XII intact, moving all extremities, vision grossly intact, hearing grossly intact - Routine Psychiatric Exam Present: normal affect, cooperative Results - Labs CBC & Chem 7: 06/15/17 09:53 06/15/17 09:53 Microbiology Results: Microbiology 06/15/17 11:09 Urine, Voided (Cc/notcc) Urine Culture - Preliminary Culture Initiated - Results Pending Assessment and Plan (1) Severe sepsis Current visit: Yes Status: Acute (2) UTI (urinary tract infection) Current visit: Yes Status: Acute DVT Prophylaxis: SCD's Resuscitation Status: Full Code Assessment and Plan: Impression Severe sepsis-manifestations include the following-1. Leukocytosis,. 2. Urinary tract infection, 3- elevated lactate at 2.9 on admission. 4. Bandemia-15% UTI Leukocytosis with bandemia Type II diabetes Hypertension Hyperlipidemia History of atrial fibrillation Irritable bowel syndrome Bipolar disorder BPH Plan Admit patient to inpatient status under the care of Dr. Galan for severe sepsis, UTI, failed outpatient treatment Patient meets criteria for severe sepsis- given UTI, elevated white count with bandemia, elevated lactate. Patient started on IV Rocephin and IV vancomycin. Blood cultures were obtained prior to antibiotic initiation. Will recheck venous lactate as per sepsis protocol. Patient did receive aggressive fluid resuscitation 30 M/kg in the emergency room-2800 ML total. Continue with gentle hydration-NS at 100 ML per hour Will obtain CT scan the abdomen and pelvis to rule out renal calculi, hydroureter or hydronephrosis given patient's history Monitor Accu-Cheks routinely. Place Xigduo (metformin combo) on hold given increase in renal function. Sliding scale Novolog with meals. continue Tresiba 100 units at HS Resume other home medications. Patient does request to be a full code and this orders written Recheck CBC, BMP and pro-calcitonin tomorrow to follow blood count, renal function and electrolytes. Orders and plan of care discussed with attending, Dr. Galan. At time of discharge medical care will return to primary care provider, Dr. Noland Hospital Course Summary Disclaimer: The visit summary below is not to be considered part of the above Progress Note. Hospital Course: 06/15/17 Impression Severe sepsis-manifestations include the following-1. Leukocytosis,. 2. Urinary tract infection, 3- elevated lactate at 2.9 on admission. 4. Bandemia-15% UTI Leukocytosis with bandemia Type II diabetes Hypertension Hyperlipidemia History of atrial fibrillation Irritable bowel syndrome Bipolar disorder BPH Plan Admit patient to inpatient status under the care of Dr. Galan for severe sepsis, UTI, failed outpatient treatment Patient meets criteria for severe sepsis- given UTI, elevated white count with bandemia, elevated lactate. Patient started on IV Rocephin and IV vancomycin. Blood cultures were obtained prior to antibiotic initiation. Will recheck venous lactate as per sepsis protocol. Patient did receive aggressive fluid resuscitation 30 M/kg in the emergency room-2800 ML total. Continue with gentle hydration-NS at 100 ML per hour Will obtain CT scan the abdomen and pelvis to rule out renal calculi, hydroureter or hydronephrosis given patient's history Monitor Accu-Cheks routinely. Place Xigduo (metformin combo) on hold given increase in renal function. Sliding scale Novolog with meals. continue Tresiba 100 units at HS Resume other home medications. Patient does request to be a full code and this orders written Recheck CBC, BMP and pro-calcitonin tomorrow to follow blood count, renal function and electrolytes. Orders and plan of care discussed with attending, Dr. Galan. At time of discharge medical care will return to primary care provider, Dr. Noland <Anish Galan - Last Filed: 06/15/17 16:13> History of Present Illness Date: 06/15/17 [facility] Patient Stated Medical History Cataracts Yes: bilateral-removed Cardiac Arrhythmia Yes: "touch of afib" Hypertension Yes Bronchitis Yes: as a child Diabetes Mellitus Type 2 Yes Hx Urinary Tract Infection Yes Sepsis Yes Bipolar Disorder Yes Family History: Family History (Last Updated 05/08/17 @ 13:21 by Kelli Phillips) Father No problems noted. Exam Vital Signs: Temperature 98.3 F 06/15/17 15:46 Pulse Rate 91 06/15/17 15:46 Respiratory Rate 18 06/15/17 15:46 Blood Pressure 108/52 06/15/17 15:46 Pulse Oximetry 93 06/15/17 15:46 Height/Weight/BMI: Height 1.7 m Weight 94.6 kg Body Mass Index 32.6 Results - Labs CBC & Chem 7: 06/15/17 09:53 06/15/17 09:53 Microbiology Results: Microbiology 06/15/17 11:09 Urine, Voided (Cc/notcc) Urine Culture - Preliminary Culture Initiated - Results Pending Assessment and Plan (1) Severe sepsis Current visit: Yes Status: Acute (2) UTI (urinary tract infection) Current visit: Yes Status: Acute Assessment and Plan: Impression Severe sepsis-manifestations include the following-1. Leukocytosis,. 2. Urinary tract infection, 3- elevated lactate at 2.9 on admission. 4. Bandemia-15% UTI Acute kidney injury Leukocytosis with bandemia Decubitus ulcer to left buttock (POA) Type II diabetes Hypertension Hyperlipidemia History of atrial fibrillation Irritable bowel syndrome Bipolar disorder BPH Have independently interviewed and examined pt. Chart reviewed. Case discussed with ED provider and my PLANNING ASSISTANT. Care plan developed with my supervision; agree with above. Has been treated for urinary tract infection since late April-had 3 different rounds of antibiotics. Not seaming to turn the course-progressively feeling more weak. Harder to get around, more unsteady. Appetite with significant decrease-not feeling hungry, not eating. No nausea or vomiting. Stools slightly loose since on antibiotics, but not watery. No ab pain. Breathing well-not feeling SOA or having cough/congestion. No pain with breathing. No chest pressure or pain. Presents to ED for evaluation. WBC increased with shift. Lactate elevated. Lungs: decreased, no distress CV: tachy, regular AB; soft nt/nd BS decreased MSE: awake alert GEN: looks weak and tired. Plan: Inpatient admission for treatment of severe sepsis secondary to UTI failing outpatient treatment. Anticipate greater than 2 midnights of care needed. IV bolus given in ED. Lactate trending down. Continue NS for hydration. Hold Metformin due to elevated lactate. Monitor blood sugars. Monitor blood counts. SCD for DVT prevention. Care to return to Dr Noland at time of discharge from [facility]. Hospital Course Summary Disclaimer: The visit summary below is not to be considered part of the above Progress Note.
--- NOTE | 2017-06-15 14:04 | Pharmacy Consult-Antibiotics ---
Pharmacy Consult-Vancomycin - Laboratory Information WBC 14.0 T/MM3 (4.5-11.0) H 06/15/17 09:53 BUN 41.0 MG/DL (9-20) H 06/15/17 09:53 Creatinine 1.7 MG/DL (0.8-1.5) H 06/15/17 09:53 Procalcitonin 0.70 NG/ML 06/15/17 09:53 VANCOMYCIN CONSULT: Dx: Severe Sepsis, UTI failed outpatient therapy Current Renal Function: S Cr = 1.7 mg/dl. Estimated Cr Cl ~ 54 mL/min Will give Vancomycin 1,000mg IV q18hrs. The Pharmacy will continue to monitor and adjust regimen to maintain therapeutic levels. Thank you for the Vancomycin Dosing Protocol, Mingo Heath, Pharmacist.
--- NOTE | 2017-06-15 15:16 | CT Scan Report ---
Indication: R/O calculi, hydronephrosis or hydroureter PROCEDURE: CT renal wo con (stone ines): Encounter: Initial Comparison: CT abdomen and pelvis dated December 02, 2016 Technique: Axial CT images were performed through the abdomen and pelvis without intravenous contrast. Coronal and sagittal two-dimensional reformats. Automated Exposure Control and Iterative Reconstruction dose reducing techniques were utilized. Findings: 8 mm left lower lobe pulmonary nodule is unchanged on axial image #15. Lung bases are otherwise grossly clear. Fatty infiltration of the liver is redemonstrated. The gallbladder is unremarkable. The spleen, pancreas and adrenal glands are within normal limits. Enlarged right kidney is noted with new mild hydronephrosis. There is a hyperdense cyst in the anterior aspect of the right kidney. There is new perinephric retroperitoneal adenopathy with a lymph node posterior to the IVC on axial image #34 measuring 1.5 cm in short axis diameter. Right hydroureter is seen to the level of the bladder without evidence of acute obstruction. Bladder wall thickening has significantly improved since the prior study. Left kidney is atrophic with a cortical calcification in the lower pole. No left-sided hydronephrosis. Prostate and rectum are unremarkable. Mild colonic diverticulosis without evidence of acute diverticulitis. The appendix is normal. Bone windows show degenerative change in the spine. Impression: 1. New right retroperitoneal adenopathy raising concern for metastatic disease. Reactive adenopathy due to infection or inflammation is also possible. PET/CT may be helpful for further evaluation. These nodes would not be amenable to percutaneous biopsy due to the proximity of the great vessels. 2. New right hydronephrosis without clear etiology for obstruction. Given the perinephric inflammatory change, pyelonephritis is within the differential. Urologic evaluation may be helpful. 3. Improved bladder thickening. .
[2017-06-15] MEDS: CARVEDILOL 12.5 MG TABLET PO SCH (17:20)
[2017-06-15] MEDS: INSULIN ASPART 100unit/ml INJECTION SQ PRN ×2 (17:20→20:58)
[2017-06-15 17:44] VITALS: BMI 32.5
[2017-06-15] MEDS: BENZTROPINE 1 MG TABLET PO SCH (20:57)
[2017-06-15] MEDS: MONTELUKAST 10 MG TABLET PO SCH (20:57)
[2017-06-15] MEDS: DIVALPROEX 500 MG TABLET PO SCH (20:57)
[2017-06-15] MEDS: DIVALPROEX 250 MG TABLET PO SCH (20:57)
[2017-06-15] MEDS: INSULIN GLARGINE 100unit/ml INJECTION SQ SCH (20:58)
[2017-06-16] MEDS: LEVOTHYROXINE 100 MCG TABLET PO SCH (06:09)
[2017-06-16] MEDS ORDERED: FLUCONAZOLE 150 MG TABLET PO ONE (08:29)
[2017-06-16] MEDS: CARVEDILOL 12.5 MG TABLET PO SCH ×2 (09:00→17:50)
[2017-06-16] MEDS: PALIPERIDONE 3 MG PO SCH (09:00)
[2017-06-16] MEDS: ALLOPURINOL 300 MG TABLET PO SCH (09:00)
[2017-06-16] MEDS: TRIAMTERENE/HCTZ 75/50 TAB 1 TAB TABLET PO SCH (09:00)
[2017-06-16] MEDS: CETIRIZINE 10 MG TABLET PO SCH (09:00)
[2017-06-16] MEDS: DIVALPROEX 500 MG TABLET PO SCH ×2 (09:00→21:52)
[2017-06-16] MEDS: BENZTROPINE 1 MG TABLET PO SCH ×2 (09:00→21:52)
[2017-06-16] MEDS: CEFTRIAXONE 1 G in NS 100 ML IV SCH (10:03)
[2017-06-16] MEDS: NS 1,000 ML IV SCH (11:42)
--- NOTE | 2017-06-16 12:29 | Progress Note ---
Subjective: Still feels "not worth a damn". Tired, states he choked on one of his pills this morning and is now coughing. Feels weak overall. Voiding without difficulty. Discussed preliminary culture results and antibiotics. Objective Vital signs: Temperature 100.3 F 06/16/17 11:52 Pulse Rate 83 06/16/17 11:52 Respiratory Rate 18 06/16/17 11:52 Blood Pressure 122/65 06/16/17 11:52 Pulse Oximetry 94 06/16/17 11:52 Height/Weight/BMI: Height 1.7 m Weight 98.6 kg Body Mass Index 32.5 - Constitutional Present: no acute distress, well nourished, well developed Comments: ill appearing - Routine HEENT Exam Head: Present: normocephalic, atraumatic Eye: Present: EOMI, PERRL. Absent: conjunctival icterus ENT: Present: mucous membranes moist, oropharynx clear - Routine Respiratory Exam Present: decreased breath sounds. Absent: accessory muscle use - Routine Cardiovascular Exam Present: RRR. Absent: rubs - Routine Abdominal Exam Present: soft, normoactive bowel sounds, non distended, non tender - Routine Extremities Exam Absent: cyanosis, clubbing, edema - Routine Skin Exam Present: dry, warm. Absent: rash - Routine Neurological Exam Present: alert, oriented X3, normal speech - Routine Psychiatric Exam Present: normal affect, normal thought process Results - Labs CBC & Chem 7: 06/16/17 04:15 06/16/17 04:15 Microbiology Results: Microbiology 06/15/17 11:09 Urine, Voided (Cc/notcc) Urine Culture - Preliminary Early growth Assessment and Plan DVT Prophylaxis: Lovenox Resuscitation Status: Full Code Assessment and Plan: Impression Severe sepsis-manifestations include the following-1. Leukocytosis,. 2. Urinary tract infection, 3- elevated lactate at 2.9 on admission. 4. Bandemia-15% --> improving with supportive care UTI, complicated and POA Acute kidney injury, improving Leukocytosis with bandemia Decubitus ulcer to left buttock (POA) Type II diabetes Hypertension Hyperlipidemia History of atrial fibrillation Irritable bowel syndrome Bipolar disorder BPH Plan/Recommendations: Continue currnet broad spectrum antibiotics including vanco/rocephin Await culture results, urine and blood Hold further IVR today and monitor BP Monitor for aspiration risk Continue current insulin regimen and monitor blood sugars, add correction scale aspart Repeat renal panel, CBC in AM for surveillance of renal function, electrolytes, leukocytosis Continue current home medications as ordered Hospital Course Summary Disclaimer: The visit summary below is not to be considered part of the above Progress Note. Hospital Course: 06/15/17 Impression Severe sepsis-manifestations include the following-1. Leukocytosis,. 2. Urinary tract infection, 3- elevated lactate at 2.9 on admission. 4. Bandemia-15% UTI Leukocytosis with bandemia Type II diabetes Hypertension Hyperlipidemia History of atrial fibrillation Irritable bowel syndrome Bipolar disorder BPH Plan Admit patient to inpatient status under the care of Dr. Galan for severe sepsis, UTI, failed outpatient treatment Patient meets criteria for severe sepsis- given UTI, elevated white count with bandemia, elevated lactate. Patient started on IV Rocephin and IV vancomycin. Blood cultures were obtained prior to antibiotic initiation. Will recheck venous lactate as per sepsis protocol. Patient did receive aggressive fluid resuscitation 30 M/kg in the emergency room-2800 ML total. Continue with gentle hydration-NS at 100 ML per hour Will obtain CT scan the abdomen and pelvis to rule out renal calculi, hydroureter or hydronephrosis given patient's history Monitor Accu-Cheks routinely. Place Xigduo (metformin combo) on hold given increase in renal function. Sliding scale Novolog with meals. continue Tresiba 100 units at HS Resume other home medications. Patient does request to be a full code and this orders written Recheck CBC, BMP and pro-calcitonin tomorrow to follow blood count, renal function and electrolytes. Orders and plan of care discussed with attending, Dr. Galan. At time of discharge medical care will return to primary care provider, Dr. Noland 06/16/17 12:35 06/16/17 Continue currnet broad spectrum antibiotics including vanco/rocephin Await culture results, urine and blood Hold further IVR today and monitor BP Monitor for aspiration risk Continue current insulin regimen and monitor blood sugars, add correction scale aspart Repeat renal panel, CBC in AM for surveillance of renal function, electrolytes, leukocytosis Continue current home medications as ordered
[2017-06-16] MEDS: INSULIN ASPART 100unit/ml INJECTION SQ PRN ×2 (17:52→21:52)
[2017-06-16] MEDS: SALINE FLUSH 10ml SYRINGE IVF PRN (21:51)
[2017-06-16] MEDS: DIVALPROEX 250 MG TABLET PO SCH (21:52)
[2017-06-16] MEDS: INSULIN GLARGINE 100unit/ml INJECTION SQ SCH (21:53)
[2017-06-16] MEDS: MONTELUKAST 10 MG TABLET PO SCH (22:56)
[2017-06-17] MEDS: LEVOTHYROXINE 100 MCG TABLET PO SCH ×2 (05:18→06:08)
[2017-06-17] MEDS: INSULIN ASPART 100unit/ml INJECTION SQ PRN ×3 (07:16→21:31)
[2017-06-17] MEDS: CETIRIZINE 10 MG TABLET PO SCH (09:17)
[2017-06-17] MEDS: BENZTROPINE 1 MG TABLET PO SCH ×2 (09:17→20:07)
[2017-06-17] MEDS: CARVEDILOL 12.5 MG TABLET PO SCH ×2 (09:17→20:06)
[2017-06-17] MEDS: ALLOPURINOL 300 MG TABLET PO SCH (09:17)
[2017-06-17] MEDS: PALIPERIDONE 3 MG PO SCH (09:17)
[2017-06-17] MEDS: TRIAMTERENE/HCTZ 75/50 TAB 1 TAB TABLET PO SCH (09:17)
[2017-06-17] MEDS: DIVALPROEX 500 MG TABLET PO SCH ×2 (09:17→20:07)
[2017-06-17] MEDS: SALINE FLUSH 10ml SYRINGE IVF PRN ×2 (09:18→19:58)
[2017-06-17] MEDS: CEFTRIAXONE 1 G in NS 100 ML IV SCH (09:18)
[2017-06-17] MEDS: ENOXAPARIN 40 MG/0.4 ML INJECTION SQ SCH (09:18)
--- NOTE | 2017-06-17 10:58 | Progress Note ---
Subjective: Flat affect. States he has no appetite and is not feeling well. Per nursing staff, not getting OOB on his own or to the bathroom. Prefers to be incontinent. Discussed need to ambulate today. No fevers, chills, dyspnea. [place]. Objective Vital signs: Temperature 99.3 F 06/17/17 07:12 Pulse Rate 85 06/17/17 07:12 Respiratory Rate 22 06/17/17 07:12 Blood Pressure 142/83 H 06/17/17 07:12 Pulse Oximetry 93 06/17/17 07:12 Height/Weight/BMI: Height 1.7 m Weight 97.8 kg Body Mass Index 32.5 - Constitutional Present: no acute distress, well nourished, well developed - Routine HEENT Exam Head: Present: normocephalic, atraumatic Eye: Present: EOMI, PERRL ENT: Present: mucous membranes moist, oropharynx clear - Routine Respiratory Exam Present: CTA bilaterally. Absent: rales, rhonchi - Routine Abdominal Exam Present: soft, non distended, non tender - Routine Extremities Exam Present: normal capillary refill. Absent: cyanosis, clubbing, edema - Routine Skin Exam Present: dry, warm. Absent: rash - Routine Neurological Exam Present: alert, moving all extremities, normal speech - Routine Psychiatric Exam Comments: flat affect, impulsive at times, poor insight Results - Labs CBC & Chem 7: 06/17/17 04:34 06/17/17 04:34 Microbiology Results: Microbiology 06/15/17 11:09 Urine, Voided (Cc/notcc) Urine Culture - Final Yuridia albicans Assessment and Plan DVT Prophylaxis: Lovenox Resuscitation Status: Full Code Assessment and Plan: Impression Severe sepsis-manifestations include the following-1. Leukocytosis,. 2. Urinary tract infection, 3- elevated lactate at 2.9 on admission. 4. Bandemia-15% --> improving with supportive care, cultures reviewed and urine with "early growth", blood NGTD UTI, complicated and POA Acute kidney injury, improving Leukocytosis with bandemia Decubitus ulcer to left buttock (POA) Type II diabetes Hypertension Hyperlipidemia History of atrial fibrillation Irritable bowel syndrome Bipolar disorder BPH Hypophosphatemia Plan/Recommendations: Continue curent broad spectrum antibiotics including vanco/rocephin Await culture results, urine and blood (urine with early growth, blood cx with NGTD) Hold further IVF and monitor BP Monitor for aspiration risk Ambulate TID today Discontinue telemetry monitoring PT/OT evaluation for AM; may ultimately benefit from rehab stay depending on how he does Continue current basal/bolus insulin regimen and monitor blood sugars Add k phos QID today and recheck phos in AM Repeat renal panel, CBC in AM for surveillance of renal function, electrolytes, leukocytosis Continue current home medications as ordered Hospital Course Summary Disclaimer: The visit summary below is not to be considered part of the above Progress Note. Hospital Course: 06/15/17 Impression Severe sepsis-manifestations include the following-1. Leukocytosis,. 2. Urinary tract infection, 3- elevated lactate at 2.9 on admission. 4. Bandemia-15% UTI Leukocytosis with bandemia Type II diabetes Hypertension Hyperlipidemia History of atrial fibrillation Irritable bowel syndrome Bipolar disorder BPH Plan Admit patient to inpatient status under the care of Dr. Galan for severe sepsis, UTI, failed outpatient treatment Patient meets criteria for severe sepsis- given UTI, elevated white count with bandemia, elevated lactate. Patient started on IV Rocephin and IV vancomycin. Blood cultures were obtained prior to antibiotic initiation. Will recheck venous lactate as per sepsis protocol. Patient did receive aggressive fluid resuscitation 30 M/kg in the emergency room-2800 ML total. Continue with gentle hydration-NS at 100 ML per hour Will obtain CT scan the abdomen and pelvis to rule out renal calculi, hydroureter or hydronephrosis given patient's history Monitor Accu-Cheks routinely. Place Xigduo (metformin combo) on hold given increase in renal function. Sliding scale Novolog with meals. continue Tresiba 100 units at HS Resume other home medications. Patient does request to be a full code and this orders written Recheck CBC, BMP and pro-calcitonin tomorrow to follow blood count, renal function and electrolytes. Orders and plan of care discussed with attending, Dr. Galan. At time of discharge medical care will return to primary care provider, Dr. Noland 06/16/17 12:35 06/16/17 Continue current broad spectrum antibiotics including vanco/rocephin Await culture results, urine and blood Hold further IVR today and monitor BP Monitor for aspiration risk Continue current insulin regimen and monitor blood sugars, add correction scale aspart Repeat renal panel, CBC in AM for surveillance of renal function, electrolytes, leukocytosis Continue current home medications as ordered 06/17/17 Continue current broad spectrum antibiotics including vanco/rocephin Await culture results, urine and blood (urine with early growth, blood cx with NGTD) Hold further IVF and monitor BP Monitor for aspiration risk Ambulate TID today Discontinue telemetry monitoring PT/OT evaluation for AM; may ultimately benefit from rehab stay depending on how he does Continue current basal/bolus insulin regimen and monitor blood sugars Add k phos QID today and recheck phos in AM Repeat renal panel, CBC in AM for surveillance of renal function, electrolytes, leukocytosis Continue current home medications as ordered
[2017-06-17] MEDS: DIVALPROEX 250 MG TABLET PO SCH (20:07)
[2017-06-17] MEDS: MONTELUKAST 10 MG TABLET PO SCH (20:07)
[2017-06-17] MEDS: INSULIN GLARGINE 100unit/ml INJECTION SQ SCH (21:30)
[2017-06-18] MEDS: HYDROCODONE/APAP 5mg/325mg TABLET PO PRN (01:25)
[2017-06-18] MEDS: LEVOTHYROXINE 100 MCG TABLET PO SCH (06:20)
[2017-06-18] MEDS: PALIPERIDONE 3 MG PO SCH (09:36)
[2017-06-18] MEDS: CETIRIZINE 10 MG TABLET PO SCH (09:37)
[2017-06-18] MEDS: ALLOPURINOL 300 MG TABLET PO SCH (09:37)
[2017-06-18] MEDS: CARVEDILOL 12.5 MG TABLET PO SCH ×2 (09:38→17:25)
[2017-06-18] MEDS: TRIAMTERENE/HCTZ 75/50 TAB 1 TAB TABLET PO SCH (09:38)
[2017-06-18] MEDS: BENZTROPINE 1 MG TABLET PO SCH (09:38)
[2017-06-18] MEDS: DIVALPROEX 500 MG TABLET PO SCH ×2 (09:38→22:53)
[2017-06-18] MEDS: ENOXAPARIN 40 MG/0.4 ML INJECTION SQ SCH (09:39)
[2017-06-18] MEDS: CEFTRIAXONE 1 G in NS 100 ML IV SCH (09:39)
[2017-06-18] MEDS: INSULIN ASPART 100unit/ml INJECTION SQ PRN (12:10)
--- NOTE | 2017-06-18 12:30 | Pharmacy Consult-Antibiotics ---
Pharmacy Consult-Vancomycin - Laboratory Information WBC 11.7 T/MM3 (4.5-11.0) H 06/18/17 03:50 BUN 29.0 MG/DL (9-20) H 06/18/17 03:50 Creatinine 1.2 MG/DL (0.8-1.5) 06/18/17 03:50 Procalcitonin 0.58 NG/ML 06/16/17 04:15 Vancomycin Trough 8.63 UG/ML (15-20) L 06/17/17 19:41 - Consult Information Vancomycin day 4: 56 y.o. M admitted with severe sepsis. Vancomycin protocol ordered empirically. Goal Vanco trough= 15-20 mcg/ml 06/17/17 vanco trough= 8.63. Dose adjusted to Vanco 1,250 mg IV Q12h Pharmacy will monitor and adjust. Thank you, Libia Suazo, [facility]
--- NOTE | 2017-06-18 15:37 | Progress Note ---
<Ramya Jones V - Last Filed: 06/18/17 15:32> Subjective: Karin is seen this this afternoon up in the chair sleeping. He states that he is "worn out". He has no complaints of pain or shortness of breath. He are 100% of breakfast today. Afebrile, vitals normal. Objective Vital signs: Temperature 98.4 F 06/18/17 08:00 Pulse Rate 81 06/18/17 08:00 Respiratory Rate 20 06/18/17 08:00 Blood Pressure 118/75 06/18/17 08:00 Pulse Oximetry 95 06/18/17 08:00 Height/Weight/BMI: Height 1.7 m Weight 97.8 kg Body Mass Index 32.5 - Constitutional Present: no acute distress, well nourished, well developed - Routine HEENT Exam Eye: Present: EOMI ENT: Present: mucous membranes moist, dentition normal - Routine Respiratory Exam Present: CTA bilaterally. Absent: wheezes - Routine Cardiovascular Exam Present: RRR, S1, S2. Absent: murmur - Routine Abdominal Exam Present: soft, normoactive bowel sounds, non distended. Absent: tenderness - Routine Extremities Exam Present: normal capillary refill - Routine Skin Exam Present: intact, dry, warm - Routine Neurological Exam Present: alert, oriented X3, CN II-XII intact - Routine Lymphatic Exam Lymphatic: Absent: adenopathy - Routine Psychiatric Exam Present: normal affect Results - Labs CBC & Chem 7: 06/18/17 03:50 06/18/17 03:50 Microbiology Results: Microbiology 06/15/17 11:09 Urine, Voided (Cc/notcc) Urine Culture - Final Yuridia albicans Assessment and Plan (1) Severe sepsis Current visit: Yes Status: Acute (2) UTI (urinary tract infection) Current visit: Yes Status: Acute Assessment and Plan: Impression Severe sepsis-manifestations include the following-1. Leukocytosis,. 2. Urinary tract infection, 3- elevated lactate at 2.9 on admission. 4. Bandemia-15% --> improving with supportive care, cultures reviewed and urine with "early growth", blood NGTD UTI, complicated and POA Acute kidney injury, improving Leukocytosis with bandemia Decubitus ulcer to left buttock (POA) Type II diabetes Hypertension Hyperlipidemia History of atrial fibrillation Irritable bowel syndrome Bipolar disorder BPH Hypophosphatemia 10/2- Plan Continue current broad spectrum antibiotics , Rocephin and vancomycin. Blood cultures remain negative. Urine culture revealed yeast, otherwise unremarkable. Like to encourage patient to get up and move more and ambulate while working with therapy Overall blood sugars appear to be well controlled. Currently on Lantus 20 units at at bedtime, and sliding scale NovoLog. Lovenox subcutaneous daily for DVT prophylaxis Continue to monitor daily labs, leukocytosis continues to improve Orders. Discussed with attending, Dr. Galan Hospital Course Summary Disclaimer: The visit summary below is not to be considered part of the above Progress Note. Hospital Course: 06/15/17 Impression Severe sepsis-manifestations include the following-1. Leukocytosis,. 2. Urinary tract infection, 3- elevated lactate at 2.9 on admission. 4. Bandemia-15% UTI Leukocytosis with bandemia Type II diabetes Hypertension Hyperlipidemia History of atrial fibrillation Irritable bowel syndrome Bipolar disorder BPH Plan Admit patient to inpatient status under the care of Dr. Galan for severe sepsis, UTI, failed outpatient treatment Patient meets criteria for severe sepsis- given UTI, elevated white count with bandemia, elevated lactate. Patient started on IV Rocephin and IV vancomycin. Blood cultures were obtained prior to antibiotic initiation. Will recheck venous lactate as per sepsis protocol. Patient did receive aggressive fluid resuscitation 30 M/kg in the emergency room-2800 ML total. Continue with gentle hydration-NS at 100 ML per hour Will obtain CT scan the abdomen and pelvis to rule out renal calculi, hydroureter or hydronephrosis given patient's history Monitor Accu-Cheks routinely. Place Xigduo (metformin combo) on hold given increase in renal function. Sliding scale Novolog with meals. continue Tresiba 100 units at HS Resume other home medications. Patient does request to be a full code and this orders written Recheck CBC, BMP and pro-calcitonin tomorrow to follow blood count, renal function and electrolytes. Orders and plan of care discussed with attending, Dr. Galan. At time of discharge medical care will return to primary care provider, Dr. Noland 06/16/17 12:35 06/16/17 Continue current broad spectrum antibiotics including vanco/rocephin Await culture results, urine and blood Hold further IVR today and monitor BP Monitor for aspiration risk Continue current insulin regimen and monitor blood sugars, add correction scale aspart Repeat renal panel, CBC in AM for surveillance of renal function, electrolytes, leukocytosis Continue current home medications as ordered 06/17/17 Continue current broad spectrum antibiotics including vanco/rocephin Await culture results, urine and blood (urine with early growth, blood cx with NGTD) Hold further IVF and monitor BP Monitor for aspiration risk Ambulate TID today Discontinue telemetry monitoring PT/OT evaluation for AM; may ultimately benefit from rehab stay depending on how he does Continue current basal/bolus insulin regimen and monitor blood sugars Add k phos QID today and recheck phos in AM Repeat renal panel, CBC in AM for surveillance of renal function, electrolytes, leukocytosis Continue current home medications as ordered 06/18- Plan Continue current broad spectrum antibiotics , Rocephin and vancomycin. Blood cultures remain negative. Urine culture revealed yeast, otherwise unremarkable. Like to encourage patient to get up and move more and ambulate while working with therapy Overall blood sugars appear to be well controlled. Currently on Lantus 20 units at at bedtime, and sliding scale NovoLog. Lovenox subcutaneous daily for DVT prophylaxis Continue to monitor daily labs, leukocytosis continues to improve Orders. Discussed with attending, Dr. Hector <Anish Galan - Last Filed: 06/18/17 16:28> Objective Vital signs: Temperature 98.4 F 06/18/17 08:00 Pulse Rate 81 06/18/17 08:00 Respiratory Rate 20 06/18/17 08:00 Blood Pressure 118/75 06/18/17 08:00 Pulse Oximetry 95 06/18/17 08:00 Height/Weight/BMI: Height 1.7 m Weight 97.8 kg Body Mass Index 32.5 Results - Labs CBC & Chem 7: 06/18/17 03:50 06/18/17 03:50 Microbiology Results: Microbiology 06/15/17 11:09 Urine, Voided (Cc/notcc) Urine Culture - Final Yuridia albicans Assessment and Plan (1) Severe sepsis Current visit: Yes Status: Acute (2) UTI (urinary tract infection) Current visit: Yes Status: Acute Assessment and Plan: Impression Severe sepsis-manifestations include the following-1. Leukocytosis,. 2. Urinary tract infection, 3- elevated lactate at 2.9 on admission. 4. Bandemia-15% --> improving with supportive care, cultures reviewed and urine with "early growth", blood NGTD UTI, complicated and POA Acute kidney injury, improving Leukocytosis with bandemia Decubitus ulcer to left buttock (POA) Type II diabetes Hypertension Hyperlipidemia History of atrial fibrillation Irritable bowel syndrome Bipolar disorder BPH Hypophosphatemia Have independently interviewed and examined pt. Chart reviewed. Case discussed with my [employer] OFFICER. Care plan developed with my supervision; agree with above. Very tired and weak-sleepy. Not feeling hungry, not eating much. Breathing okay- not having cough or congestion. No pain with breathing. Lungs: decreased, no distress CV: regular AB: soft nt/nd +BS EXT: SCD in place. Trace edema MSE: somnolent. Plan: Will continue Rocephin for antimicrobial coverage-can stop Vancomycin. As oral drive decreased will start 1/2NS at 75cc/hr. Hold Zyrtec due to sedation. Have pharm check his home Depakote dosing due to sedation. Increase activities as able. WBC trending down. Sugars stable. Discussed patient status with family. Time spent with patient care 25 minutes. Hospital Course Summary Disclaimer: The visit summary below is not to be considered part of the above Progress Note.
[2017-06-18] MEDS: 1/2 NS 1,000 ML IV SCH (16:40)
[2017-06-18] MEDS: INSULIN GLARGINE 100unit/ml INJECTION SQ SCH (22:48)
[2017-06-18] MEDS: MONTELUKAST 10 MG TABLET PO SCH (22:54)
[2017-06-18] MEDS: DIVALPROEX 250 MG TABLET PO SCH (22:54)
[2017-06-19] MEDS ORDERED: FALL RISK - PHARMACY CONSULT XX ONE (00:09)
[2017-06-19] MEDS: 1/2 NS 1,000 ML IV SCH ×2 (06:13→22:29)
[2017-06-19] MEDS: LEVOTHYROXINE 100 MCG TABLET PO SCH (06:33)
[2017-06-19] MEDS: ALLOPURINOL 300 MG TABLET PO SCH (09:20)
[2017-06-19] MEDS: TRIAMTERENE/HCTZ 75/50 TAB 1 TAB TABLET PO SCH (09:20)
[2017-06-19] MEDS: PALIPERIDONE 3 MG PO SCH (09:20)
[2017-06-19] MEDS: DIVALPROEX 500 MG TABLET PO SCH ×2 (09:21→21:19)
[2017-06-19] MEDS: BENZTROPINE 1 MG TABLET PO SCH ×2 (09:21→21:19)
[2017-06-19] MEDS: ENOXAPARIN 40 MG/0.4 ML INJECTION SQ SCH (09:22)
[2017-06-19] MEDS: CARVEDILOL 12.5 MG TABLET PO SCH ×2 (09:22→18:57)
[2017-06-19] MEDS: CEFTRIAXONE 1 G in NS 100 ML IV SCH (09:22)
[2017-06-19] MEDS: INSULIN ASPART 100unit/ml INJECTION SQ PRN ×3 (11:35→21:25)
--- NOTE | 2017-06-19 11:56 | Progress Note ---
Subjective: F/U: Sepsis, UTI-failed outpatient treatment. Still feels very weak and groggy. Hard to move around. Cognitive slowing. Appetite fair-eating some, but not as hungry as usual. No pain with chewing or swallowing. Denies nausea or ab pain. Breathing well-not feeling congested or SOA. Tired in general. Objective Vital signs: Temperature 98.7 F 06/19/17 08:00 Pulse Rate 82 06/19/17 08:00 Respiratory Rate 18 06/19/17 08:00 Blood Pressure 122/74 06/19/17 08:00 Pulse Oximetry 91 06/19/17 08:00 Height/Weight/BMI: Height 1.7 m Weight 93.9 kg Body Mass Index 32.5 - Constitutional Present: moderate distress, well nourished, obese, cooperative, other (Appears weak and tired ) - Routine HEENT Exam Head: Present: normocephalic, atraumatic Eye: Present: EOMI, PERRL ENT: Present: mucous membranes moist (No thrush ) - Routine Respiratory Exam Present: CTA bilaterally, distant breath sounds. Absent: respiratory distress, rhonchi, stridor, wheezes, crackles - Routine Cardiovascular Exam Present: RRR, no murmur - Routine Abdominal Exam Present: soft, non distended, non tender. Absent: normoactive bowel sounds ( Decreased ) - Routine Extremities Exam Present: no edema. Absent: cyanosis, clubbing Comments: SCD present - Routine Musculoskeletal Exam Musculoskeletal: Present: no clubbing or cyanosis - Routine Skin Exam Present: dry, warm - Routine Neurological Exam Present: alert, CN II-XII intact, altered mental status (Cognitive slowing. Speech slow), moving all extremities, vision grossly intact, hearing grossly intact. Absent: motor deficit - Routine Psychiatric Exam Absent: normal thought process (Cognitive slowing ), anxious, agitated, paranoid Results - Labs CBC & Chem 7: 06/19/17 03:53 06/19/17 03:53 Microbiology Results: Microbiology 06/15/17 11:09 Urine, Voided (Cc/notcc) Urine Culture - Final Yuridia albicans Assessment and Plan (1) Severe sepsis Current visit: Yes Status: Acute (2) UTI (urinary tract infection) Current visit: Yes Status: Acute DVT Prophylaxis: SCD's Resuscitation Status: Full Code Assessment and Plan: Impression Severe sepsis-manifestations include the following-1. Leukocytosis,. 2. Urinary tract infection, 3- elevated lactate at 2.9 on admission. 4. Bandemia-15% --> improving with supportive care, cultures reviewed and urine with "early growth", blood NGTD UTI, complicated and POA Acute kidney injury, improving Leukocytosis with bandemia Decubitus ulcer to left buttock (POA) Type II diabetes Hypertension Hyperlipidemia History of atrial fibrillation Irritable bowel syndrome Bipolar disorder BPH Hypophosphatemia Plan Yesterday we discovered his home Cogentin dose was 0.5mg BID - not 1mg BID. Likely increase of this medication contributing to cognitive slowing. Held evening dose last night and reduced to 0.5mg BID this am. Will check Depakote level to make sure not elevated. Continue low flow IVF of 1/2NS at [address] decreased[address] Continue with Rocephin - WBC trending down. Culture showing not bacterial growth. Vancomycin stopped yesterday. Encourage PT/OT to help improve functional status. Still very weak and debilitated. Blood sugars stable. Continue to monitor. Recheck lab in am. Case discussed with patient's mother. Time spent with patient care 25 minutes. Hospital Course Summary Disclaimer: The visit summary below is not to be considered part of the above Progress Note. Hospital Course: 06/15/17 Admission Impression Severe sepsis-manifestations include the following-1. Leukocytosis,. 2. Urinary tract infection, 3- elevated lactate at 2.9 on admission. 4. Bandemia-15% UTI Leukocytosis with bandemia Type II diabetes Hypertension Hyperlipidemia History of atrial fibrillation Irritable bowel syndrome Bipolar disorder BPH Plan Admit patient to inpatient status under the care of Dr. Galan for severe sepsis, UTI, failed outpatient treatment Patient meets criteria for severe sepsis- given UTI, elevated white count with bandemia, elevated lactate. Patient started on IV Rocephin and IV vancomycin. Blood cultures were obtained prior to antibiotic initiation. Will recheck venous lactate as per sepsis protocol. Patient did receive aggressive fluid resuscitation 30 M/kg in the emergency room-2800 ML total. Continue with gentle hydration-NS at 100 ML per hour Will obtain CT scan the abdomen and pelvis to rule out renal calculi, hydroureter or hydronephrosis given patient's history Monitor Accu-Cheks routinely. Place Xigduo (metformin combo) on hold given increase in renal function. Sliding scale Novolog with meals. continue Tresiba 100 units at HS Resume other home medications. Patient does request to be a full code and this orders written Recheck CBC, BMP and pro-calcitonin tomorrow to follow blood count, renal function and electrolytes. At time of discharge medical care will return to primary care provider, Dr. Noland 06/16/17 Continue current broad spectrum antibiotics including vancomycin/Rocephin Await culture results, urine and blood Hold further IVR today and monitor BP Monitor for aspiration risk Continue current insulin regimen and monitor blood sugars, add correction scale aspart Repeat renal panel, CBC in AM for surveillance of renal function, electrolytes, leukocytosis Continue current home medications as ordered 06/17/17 Continue current broad spectrum antibiotics including vancomycin/Rocephin Await culture results, urine and blood (urine with early growth, blood cx with NGTD) Hold further IVF and monitor BP Monitor for aspiration risk Ambulate TID today Discontinue telemetry monitoring PT/OT evaluation for AM; may ultimately benefit from rehab stay depending on how he does Continue current basal/bolus insulin regimen and monitor blood sugars Add k phos QID today and recheck phos in AM Repeat renal panel, CBC in AM for surveillance of renal function, electrolytes, leukocytosis Continue current home medications as ordered 06/18/17 Continue Rocephin for coverage-may stop vancomycin. Blood cultures remain negative. Urine culture revealed yeast, otherwise unremarkable. Like to encourage patient to get up and move more and ambulate while working with therapy Overall blood sugars appear to be well controlled. Currently on Lantus 20 units at at bedtime, and sliding scale NovoLog. Lovenox subcutaneous daily for DVT prophylaxis Continue to monitor daily labs, leukocytosis continues to improve 06/19/17 Yesterday we discovered his home Cogentin dose was 0.5mg BID - not 1mg BID. Likely increase of this medication contributing to cognitive slowing. Held evening dose last night and reduced to 0.5mg BID this am. Will check Depakote level to make sure not elevated. Continue low flow IVF of 1/2NS at [address] decreased[address] Continue with Rocephin - WBC trending down. Urine culture showing not bacterial growth. Encourage PT/OT to help improve functional status. Still very weak and debilitated. Blood sugars stable. Continue to monitor.
[2017-06-19] MEDS: INSULIN GLARGINE 100unit/ml INJECTION SQ SCH (21:18)
[2017-06-19] MEDS: DIVALPROEX 250 MG TABLET PO SCH (21:18)
[2017-06-19] MEDS: MONTELUKAST 10 MG TABLET PO SCH (21:19)
[2017-06-20] MEDS: HYDROCODONE/APAP 5mg/325mg TABLET PO PRN ×2 (01:26→21:19)
[2017-06-20] MEDS: LEVOTHYROXINE 100 MCG TABLET PO SCH (05:37)
[2017-06-20] MEDS: INSULIN ASPART 100unit/ml INJECTION SQ PRN ×3 (06:03→21:19)
[2017-06-20] MEDS: ENOXAPARIN 40 MG/0.4 ML INJECTION SQ SCH (08:58)
[2017-06-20] MEDS: ALLOPURINOL 300 MG TABLET PO SCH (08:58)
[2017-06-20] MEDS: BENZTROPINE 1 MG TABLET PO SCH ×2 (08:58→21:04)
[2017-06-20] MEDS: PALIPERIDONE 3 MG PO SCH (08:58)
[2017-06-20] MEDS: DIVALPROEX 500 MG TABLET PO SCH ×2 (08:58→21:05)
[2017-06-20] MEDS: TRIAMTERENE/HCTZ 75/50 TAB 1 TAB TABLET PO SCH (08:58)
[2017-06-20] MEDS: CARVEDILOL 12.5 MG TABLET PO SCH ×2 (08:58→18:49)
[2017-06-20] MEDS: CEFTRIAXONE 1 G in NS 100 ML IV SCH (08:59)
--- NOTE | 2017-06-20 11:36 | Progress Note ---
<Ramya Jones V - Last Filed: 06/20/17 11:31> Subjective: Mr Ramirez is seen and examined this morning during breakfast. He is alert and pleasant during examination. He denies having chest pain, Shortness of breath or GI complaints. His appetite is good. Noted he did have a fever late last night of 100.6. Overall blood sugars have been mildly elevated. Objective Vital signs: Temperature 98 F 06/20/17 07:55 Pulse Rate 72 06/20/17 07:55 Respiratory Rate 16 06/20/17 07:55 Blood Pressure 120/71 06/20/17 07:55 Pulse Oximetry 97 06/20/17 07:55 Height/Weight/BMI: Height 1.7 m Weight 95.6 kg Body Mass Index 32.5 - Constitutional Present: no acute distress, well nourished, well developed - Routine HEENT Exam Eye: Present: EOMI ENT: Present: mucous membranes moist, dentition normal - Routine Respiratory Exam Present: CTA bilaterally. Absent: wheezes - Routine Cardiovascular Exam Present: RRR, S1, S2. Absent: murmur - Routine Abdominal Exam Present: soft, normoactive bowel sounds, non distended. Absent: tenderness - Routine Extremities Exam Present: normal capillary refill - Routine Back/Spine/Pelvis Exam Back/Spine: Present: full ROM - Routine Skin Exam Present: intact, dry, warm - Routine Neurological Exam Present: alert, oriented X3, CN II-XII intact, moving all extremities - Routine Lymphatic Exam Lymphatic: Absent: adenopathy - Routine Psychiatric Exam Present: normal affect, cooperative Results - Labs CBC & Chem 7: 06/20/17 04:39 06/20/17 04:39 Microbiology Results: Microbiology 06/15/17 11:09 Urine, Voided (Cc/notcc) Urine Culture - Final Yuridia albicans Assessment and Plan (1) Severe sepsis Current visit: Yes Status: Acute (2) UTI (urinary tract infection) Current visit: Yes Status: Acute Assessment and Plan: Impression Severe sepsis-manifestations include the following-1. Leukocytosis,. 2. Urinary tract infection, 3- elevated lactate at 2.9 on admission. 4. Bandemia-15% --> improving with supportive care, cultures reviewed and urine with "early growth", blood NGTD UTI, complicated and POA Acute kidney injury, improving Leukocytosis with bandemia - Resolved Decubitus ulcer to left buttock (POA) Type II diabetes Hypertension Hyperlipidemia History of atrial fibrillation Irritable bowel syndrome Bipolar disorder BPH Hypophosphatemia 10-4-Plan Overall mentation and sedation is improved with decrease if Cogentin dose. In today with Rocephin for antimicrobial coverage, vancomycin was stopped. Blood cultures remain negative Overall labs stable- Depakote level is normal (therapeutic). WBC count normalized today to 9.7 Blood sugars having been intermittently mildly elevated at times. Continue to monitor. Continue to improve PT/OT for strengthening Hospital Course Summary Disclaimer: The visit summary below is not to be considered part of the above Progress Note. Hospital Course: 06/15/17 Admission Impression Severe sepsis-manifestations include the following-1. Leukocytosis,. 2. Urinary tract infection, 3- elevated lactate at 2.9 on admission. 4. Bandemia-15% UTI Leukocytosis with bandemia Type II diabetes Hypertension Hyperlipidemia History of atrial fibrillation Irritable bowel syndrome Bipolar disorder BPH Plan Admit patient to inpatient status under the care of Dr. Galan for severe sepsis, UTI, failed outpatient treatment Patient meets criteria for severe sepsis- given UTI, elevated white count with bandemia, elevated lactate. Patient started on IV Rocephin and IV vancomycin. Blood cultures were obtained prior to antibiotic initiation. Will recheck venous lactate as per sepsis protocol. Patient did receive aggressive fluid resuscitation 30 M/kg in the emergency room-2800 ML total. Continue with gentle hydration-NS at 100 ML per hour Will obtain CT scan the abdomen and pelvis to rule out renal calculi, hydroureter or hydronephrosis given patient's history Monitor Accu-Cheks routinely. Place Xigduo (metformin combo) on hold given increase in renal function. Sliding scale Novolog with meals. continue Tresiba 100 units at HS Resume other home medications. Patient does request to be a full code and this orders written Recheck CBC, BMP and pro-calcitonin tomorrow to follow blood count, renal function and electrolytes. At time of discharge medical care will return to primary care provider, Dr. Noland 06/16/17 Continue current broad spectrum antibiotics including vancomycin/Rocephin Await culture results, urine and blood Hold further IVR today and monitor BP Monitor for aspiration risk Continue current insulin regimen and monitor blood sugars, add correction scale aspart Repeat renal panel, CBC in AM for surveillance of renal function, electrolytes, leukocytosis Continue current home medications as ordered 06/17/17 Continue current broad spectrum antibiotics including vancomycin/Rocephin Await culture results, urine and blood (urine with early growth, blood cx with NGTD) Hold further IVF and monitor BP Monitor for aspiration risk Ambulate TID today Discontinue telemetry monitoring PT/OT evaluation for AM; may ultimately benefit from rehab stay depending on how he does Continue current basal/bolus insulin regimen and monitor blood sugars Add k phos QID today and recheck phos in AM Repeat renal panel, CBC in AM for surveillance of renal function, electrolytes, leukocytosis Continue current home medications as ordered 06/18/17 Continue Rocephin for coverage-may stop vancomycin. Blood cultures remain negative. Urine culture revealed yeast, otherwise unremarkable. Like to encourage patient to get up and move more and ambulate while working with therapy Overall blood sugars appear to be well controlled. Currently on Lantus 20 units at at bedtime, and sliding scale NovoLog. Lovenox subcutaneous daily for DVT prophylaxis Continue to monitor daily labs, leukocytosis continues to improve 06/19/17 Yesterday we discovered his home Cogentin dose was 0.5mg BID - not 1mg BID. Likely increase of this medication contributing to cognitive slowing. Held evening dose last night and reduced to 0.5mg BID this am. Will check Depakote level to make sure not elevated. Continue low flow IVF of 1/2NS at [address] Continue with Rocephin - WBC trending down. Urine culture showing not bacterial growth. Encourage PT/OT to help improve functional status. Still very weak and debilitated. Blood sugars stable. Continue to monitor. 06-20-Plan Overall mentation and sedation is improved with decrease if Cogentin dose. In today with Rocephin for antimicrobial coverage, vancomycin was stopped. Blood cultures remain negative Overall labs stable- Depakote level is normal (therapeutic). WBC count normalized today to 9.7 Blood sugars having been intermittently mildly elevated at times. Continue to monitor. Continue to improve PT/OT for strengthening <Anish Galan - Last Filed: 06/20/17 15:44> Objective Vital signs: Temperature 98.2 F 06/20/17 15:15 Pulse Rate 76 06/20/17 15:15 Respiratory Rate 18 06/20/17 15:15 Blood Pressure 127/81 06/20/17 15:15 Pulse Oximetry 92 06/20/17 15:15 Height/Weight/BMI: Height 1.7 m Weight 95.6 kg Body Mass Index 32.5 Results - Labs CBC & Chem 7: 06/20/17 04:39 06/20/17 04:39 Microbiology Results: Microbiology 06/15/17 11:09 Urine, Voided (Cc/notcc) Urine Culture - Final Yuridia albicans Assessment and Plan (1) Severe sepsis Current visit: Yes Status: Acute (2) UTI (urinary tract infection) Current visit: Yes Status: Acute Assessment and Plan: Impression Severe sepsis-manifestations include the following-1. Leukocytosis,. 2. Urinary tract infection, 3- elevated lactate at 2.9 on admission. 4. Bandemia-15% --> improving with supportive care, cultures reviewed and urine with "early growth", blood NGTD UTI, complicated and POA Acute kidney injury, improving Leukocytosis with bandemia - Resolved Decubitus ulcer to left buttock (POA) Type II diabetes Hypertension Hyperlipidemia History of atrial fibrillation Irritable bowel syndrome Bipolar disorder BPH Hypophosphatemia Have independently interviewed and examined pt. Chart reviewed. Case discussed with my KEY CUTTER. Care plan developed with my supervision; agree with above. Resting in bed. Feels he is getting stronger and doing better. Wanting to go home. Has been eating more today than yesterday (yesterday 25%). Denies SOA or cough. Not having ab pain or discomfort. Stools moving well. Lungs: decreased, no distress CV: regular AB: soft nt/nd BS decreased MSE: awake, cognitive slowing. Plan: WBC normalized-encouraging. Pt still appears very weak and debilitated. Will have nursing ambulate to help assess how well he functions and to help improve his strength. Continue with Rocephin for coverage. Possible home tomorrow if strength is doing well, otherwise likely need IRU to improve functionality. - Time spent with patient Time with patient PN: 25 minutes Hospital Course Summary Disclaimer: The visit summary below is not to be considered part of the above Progress Note.
[2017-06-20] MEDS: 1/2 NS 1,000 ML IV SCH ×2 (12:33→22:24)
[2017-06-20] MEDS: INSULIN GLARGINE 100unit/ml INJECTION SQ SCH (21:04)
[2017-06-20] MEDS: DIVALPROEX 250 MG TABLET PO SCH (21:05)
[2017-06-20] MEDS: MONTELUKAST 10 MG TABLET PO SCH (21:05)
[2017-06-21] MEDS: 1/2 NS 1,000 ML IV SCH ×2 (03:03→17:17)
[2017-06-21] MEDS: LEVOTHYROXINE 100 MCG TABLET PO SCH (06:01)
[2017-06-21] MEDS: CARVEDILOL 12.5 MG TABLET PO SCH ×2 (09:30→17:18)
[2017-06-21] MEDS: CEFTRIAXONE 1 G in NS 100 ML IV SCH (09:31)
[2017-06-21] MEDS: PALIPERIDONE 3 MG PO SCH (09:31)
[2017-06-21] MEDS: ALLOPURINOL 300 MG TABLET PO SCH (09:31)
[2017-06-21] MEDS: BENZTROPINE 1 MG TABLET PO SCH ×2 (09:32→20:35)
[2017-06-21] MEDS: DIVALPROEX 500 MG TABLET PO SCH ×2 (09:32→20:36)
[2017-06-21] MEDS: TRIAMTERENE/HCTZ 75/50 TAB 1 TAB TABLET PO SCH (09:32)
[2017-06-21] MEDS: ENOXAPARIN 40 MG/0.4 ML INJECTION SQ SCH (09:33)
[2017-06-21] MEDS: INSULIN ASPART 100unit/ml INJECTION SQ PRN ×3 (11:44→21:53)
--- NOTE | 2017-06-21 17:53 | Progress Note ---
Subjective: F/U: Sepsis, UTI-failed outpatient treatment. Resting in bed this evening. Feeling okay. Eating well-no ab pain or nausea. Stools stable-not too loose or slow, moving well. Breathing stable. No f/c. Strength improving slowly. Objective Vital signs: Temperature 96.5 F L 06/21/17 11:31 Pulse Rate 77 06/21/17 11:31 Respiratory Rate 24 06/21/17 11:31 Blood Pressure 118/69 06/21/17 11:31 Pulse Oximetry 96 06/21/17 11:31 Height/Weight/BMI: Height 1.7 m Weight 95 kg Body Mass Index 32.5 - Constitutional Present: well nourished, well developed, obese, cooperative - Routine HEENT Exam Head: Present: normocephalic, atraumatic Eye: Present: EOMI, PERRL ENT: Present: mucous membranes moist - Routine Respiratory Exam Present: CTA bilaterally. Absent: respiratory distress, rhonchi, wheezes, crackles - Routine Cardiovascular Exam Present: RRR, no murmur - Routine Abdominal Exam Present: soft, normoactive bowel sounds, non distended, non tender - Routine Extremities Exam Present: edema. Absent: cyanosis, clubbing Comments: SCD in place - Routine Musculoskeletal Exam Musculoskeletal: Present: no clubbing or cyanosis - Routine Skin Exam Present: intact, dry, warm - Routine Neurological Exam Present: alert, CN II-XII intact, moving all extremities, vision grossly intact , hearing grossly intact. Absent: motor deficit - Routine Psychiatric Exam Absent: normal affect (Flat affect ), anxious, agitated Comments: Alert. Psychomotor slowing. Less somnolent. Results - Labs CBC & Chem 7: 06/21/17 03:55 06/21/17 03:55 Microbiology Results: Microbiology 06/15/17 11:09 Urine, Voided (Cc/notcc) Urine Culture - Final Yuridia albicans Assessment and Plan (1) Severe sepsis Current visit: Yes Status: Acute (2) UTI (urinary tract infection) Current visit: Yes Status: Acute DVT Prophylaxis: SCD's Resuscitation Status: Full Code Assessment and Plan: Impression Severe sepsis-manifestations include the following-1. Leukocytosis,. 2. Urinary tract infection, 3- elevated lactate at 2.9 on admission. 4. Bandemia-15% --> improving with supportive care, cultures reviewed and urine with "early growth", blood NGTD UTI, complicated and POA Acute kidney injury, improving Leukocytosis with bandemia - Resolved Decubitus ulcer to left buttock (POA) Type II diabetes Hypertension Hyperlipidemia History of atrial fibrillation Irritable bowel syndrome Bipolar disorder BPH Hypophosphatemia Plan Continue Rocephin for urinary coverage. Will continue low flow IVF as sodium still with elevation. IRU screen placed but patient declined. Concern with his decreased strength his care needs are too high for his parents to handle at home. Encourage continue work with therapy and nursing ambulation to help strengthening. CM working on other discharge options. Recheck lab in am. Continue with supportive care. Case discussed with CM. Time spent with patient care 25 minutes. - Time spent with patient Time with patient PN: 25 minutes Hospital Course Summary Disclaimer: The visit summary below is not to be considered part of the above Progress Note. Hospital Course: 06/15/17 Admission Impression Severe sepsis-manifestations include the following-1. Leukocytosis,. 2. Urinary tract infection, 3- elevated lactate at 2.9 on admission. 4. Bandemia-15% UTI Leukocytosis with bandemia Type II diabetes Hypertension Hyperlipidemia History of atrial fibrillation Irritable bowel syndrome Bipolar disorder BPH Plan Admit patient to inpatient status under the care of Dr. Galan for severe sepsis, UTI, failed outpatient treatment Patient meets criteria for severe sepsis- given UTI, elevated white count with bandemia, elevated lactate. Patient started on IV Rocephin and IV vancomycin. Blood cultures were obtained prior to antibiotic initiation. Will recheck venous lactate as per sepsis protocol. Patient did receive aggressive fluid resuscitation 30 M/kg in the emergency room-2800 ML total. Continue with gentle hydration-NS at 100 ML per hour Will obtain CT scan the abdomen and pelvis to rule out renal calculi, hydroureter or hydronephrosis given patient's history Monitor Accu-Cheks routinely. Place Xigduo (metformin combo) on hold given increase in renal function. Sliding scale Novolog with meals. continue Tresiba 100 units at HS Resume other home medications. Patient does request to be a full code and this orders written Recheck CBC, BMP and pro-calcitonin tomorrow to follow blood count, renal function and electrolytes. At time of discharge medical care will return to primary care provider, Dr. Noland 06/16/17 Continue current broad spectrum antibiotics including vancomycin/Rocephin Await culture results, urine and blood Hold further IVR today and monitor BP Monitor for aspiration risk Continue current insulin regimen and monitor blood sugars, add correction scale aspart Repeat renal panel, CBC in AM for surveillance of renal function, electrolytes, leukocytosis Continue current home medications as ordered 06/17/17 Continue current broad spectrum antibiotics including vancomycin/Rocephin Await culture results, urine and blood (urine with early growth, blood cx with NGTD) Hold further IVF and monitor BP Monitor for aspiration risk Ambulate TID today Discontinue telemetry monitoring PT/OT evaluation for AM; may ultimately benefit from rehab stay depending on how he does Continue current basal/bolus insulin regimen and monitor blood sugars Add k phos QID today and recheck phos in AM Repeat renal panel, CBC in AM for surveillance of renal function, electrolytes, leukocytosis Continue current home medications as ordered 06/18/17 Continue Rocephin for coverage-may stop vancomycin. Blood cultures remain negative. Urine culture revealed yeast, otherwise unremarkable. Like to encourage patient to get up and move more and ambulate while working with therapy Overall blood sugars appear to be well controlled. Currently on Lantus 20 units at at bedtime, and sliding scale NovoLog. Lovenox subcutaneous daily for DVT prophylaxis Continue to monitor daily labs, leukocytosis continues to improve 06/19/17 Yesterday we discovered his home Cogentin dose was 0.5mg BID - not 1mg BID. Likely increase of this medication contributing to cognitive slowing. Held evening dose last night and reduced to 0.5mg BID this am. Will check Depakote level to make sure not elevated. Continue low flow IVF of 1/2NS at [address] Continue with Rocephin - WBC trending down. Urine culture showing not bacterial growth. Encourage PT/OT to help improve functional status. Still very weak and debilitated. Blood sugars stable. Continue to monitor. 06/20/17 Overall mentation and sedation is improved with decrease if Cogentin dose. In today with Rocephin for antimicrobial coverage, vancomycin was stopped. Blood cultures remain negative Overall labs stable- Depakote level is normal (therapeutic). WBC count normalized today to 9.7 Blood sugars having been intermittently mildly elevated at times. Continue to monitor. Continue to improve PT/OT for strengthening 06/21/17 Continue Rocephin for urinary coverage. Will continue low flow IVF as sodium still with elevation. IRU screen placed but patient declined. Concern with his decreased strength his care needs are too high for his parents to handle at home. Encourage continue work with therapy and nursing ambulation to help strengthening. CM working on other discharge options. Recheck lab in am. Continue with supportive care.
[2017-06-21] MEDS: MONTELUKAST 10 MG TABLET PO SCH (20:36)
[2017-06-21] MEDS: DIVALPROEX 250 MG TABLET PO SCH (20:36)
[2017-06-21] MEDS: INSULIN GLARGINE 100unit/ml INJECTION SQ SCH (21:53)
[2017-06-22] MEDS: HYDROCODONE/APAP 5mg/325mg TABLET PO PRN (05:23)
[2017-06-22] MEDS: LEVOTHYROXINE 100 MCG TABLET PO SCH ×2 (05:23→06:07)
[2017-06-22] MEDS: 1/2 NS 1,000 ML IV SCH (05:24)
[2017-06-22 07:26] VITALS: TEMP 97.9
[2017-06-22] MEDS: CEFTRIAXONE 1 G in NS 100 ML IV SCH (08:56)
[2017-06-22] MEDS: DIVALPROEX 500 MG TABLET PO SCH (08:57)
[2017-06-22] MEDS: BENZTROPINE 1 MG TABLET PO SCH (08:57)
[2017-06-22] MEDS: PALIPERIDONE 3 MG PO SCH (08:59)
[2017-06-22] MEDS: ENOXAPARIN 40 MG/0.4 ML INJECTION SQ SCH (09:00)
[2017-06-22] MEDS: CARVEDILOL 12.5 MG TABLET PO SCH (09:00)
[2017-06-22] MEDS: TRIAMTERENE/HCTZ 75/50 TAB 1 TAB TABLET PO SCH (09:00)
[2017-06-22] MEDS: ALLOPURINOL 300 MG TABLET PO SCH (09:00)
[2017-06-22] MEDS: INSULIN ASPART 100unit/ml INJECTION SQ PRN (12:01)
--- NOTE | 2017-06-22 14:59 | Discharge Summary ---
Discharge Information Date of admission: 06/15/17 10:52 Anticipated date of discharge: 06/22/17 Attending Physician: Anish Galan MD Primary care physician: Nirav Noland II, MD Consults: Dietary Consult PT/OT - Discharge Diagnosis (1) Severe sepsis Status: Acute (2) UTI (urinary tract infection) Status: Acute Discharge Diagnosis: Discharge diagnosis Severe sepsis-manifestations include the following-1. Leukocytosis,. 2. Urinary tract infection, 3- elevated lactate at 2.9 on admission. 4. Bandemia-15% Resolved Associated conditions and complications UTI, complicated and POA Acute kidney injury, improving Leukocytosis with bandemia - Resolved Decubitus ulcer to left buttock (POA) stage 1 Type II diabetes Hypertension Hyperlipidemia History of atrial fibrillation Irritable bowel syndrome Bipolar disorder BPH Hypophosphatemia - Laboratory Labs: Admit Lab 06/15/17 09:53 WBC 14.0 H Hgb 13.6 Hct 42.9 MCV 91.9 Plt Count 131 Neutrophils % (Manual) 59.0 Band Neutrophils % 15.0 H Lymphocytes % (Manual) 11.0 L Monocytes % (Manual) 13.0 H Admit Lab 06/15/17 06/15/17 06/15/17 09:53 09:53 09:53 Sodium 144 Potassium 4.1 Chloride 99 Carbon Dioxide 28 Anion Gap 17 H BUN 41.0 H Creatinine 1.7 H GFR Calculation 42 BUN/Creatinine Ratio 24 Glucose 267 H Calculated Osmolality 296 H Calcium 10.7 H Total Bilirubin 0.70 Icterus Index < 2 AST 42 ALT 33 Alkaline Phosphatase 101 Albumin 3.9 Plasma Lactate 2.9 H Procalcitonin 0.70 06/22/17 05:01 06/22/17 05:01 - Microbiology Microbiology 06/15/17 11:09 Urine, Voided (Cc/notcc) Urine Culture - Final Yuridia albicans History of Present Illness HPI: Mr Ramirez is a pleasant 56 yr old male who has had a history of hematuria and hydroureter. Patient has been under the primary care treatment of Dr. Noland for outpatient urinary tract infection. He initially was started on Cipro on . He was changed to Macrobid on 06/06/17, and then changed back to Cipro on . Despite antimicrobial coverage in the outpatient setting. He continued to have weakness and dysuria. Today he presented to the emergency room for acute evaluation. Return studies did reveal elevated white count at 14.0 with 15% bandemia. Hemoglobin stable at 13.6, platelets 131. Sodium is 144 , potassium 4.1, BUN elevated at 41 and creatinine elevated at 1.7. Baseline creatinine from 6 months ago was 1.0. Glucose was found to be elevated at 267. Initial venous lactate is elevated at 2.9, pro calcitonin 0.70. Urinalysis did reveal acute infection with 2+ protein, 3+ glucose, 3+ blood, 2+ leukocyte esterase, 5-10 RBCs, too numerous to count WBCs with 4+ bacteria and budding yeast. She was given IV fluid resuscitation of 30 ml/kg- 2800ml IV fluid along with IV Rocephin and IV vancomycin. The hospitalist services were contacted and accepted patient for inpatient admission for further evaluation and treatment. Patient is seen on initial examination. He is alert, oriented and pleasant. He states he is "weak as a kitten" for several weeks. He does report having some pain with urination. Denies having shortness of breath, chest pain, GI complaints. He has had decreased appetite recently. We did discuss advanced directives and he does wish to be a full code For complete details of the H&P refer to that document Objective Vital signs: Temperature 97.9 F 06/22/17 07:23 Pulse Rate 74 06/22/17 07:23 Respiratory Rate 20 06/22/17 07:23 Blood Pressure 124/68 06/22/17 07:23 Pulse Oximetry 94 06/22/17 07:23 Height/Weight/BMI: Height 1.7 m Weight 94.6 kg Body Mass Index 32.5 - Constitutional Present: no acute distress, well nourished, well developed, obese - Routine HEENT Exam Head: Present: normocephalic, atraumatic Eye: Present: PERRL ENT: Present: mucous membranes moist - Routine Respiratory Exam Present: CTA bilaterally. Absent: respiratory distress, wheezes, crackles - Routine Cardiovascular Exam Present: RRR, no murmur - Routine Abdominal Exam Present: soft, normoactive bowel sounds, non distended, non tender - Routine Extremities Exam Present: no edema, pulses intact. Absent: cyanosis, clubbing - Routine Musculoskeletal Exam Musculoskeletal: Present: no clubbing or cyanosis - Routine Skin Exam Present: dry, warm - Routine Neurological Exam Present: alert, CN II-XII intact, moving all extremities, vision grossly intact , hearing grossly intact - Routine Psychiatric Exam Present: cooperative. Absent: normal affect (Flat ), anxious, agitated Hospital Course This is a general summary of the patient's hospital course. For more details refer to the complete medical record. Hospital course: 06/15/17 Admission Impression Severe sepsis-manifestations include the following-1. Leukocytosis,. 2. Urinary tract infection, 3- elevated lactate at 2.9 on admission. 4. Bandemia-15% UTI Leukocytosis with bandemia Type II diabetes Hypertension Hyperlipidemia History of atrial fibrillation Irritable bowel syndrome Bipolar disorder BPH Plan Admit patient to inpatient status under the care of Dr. Galan for severe sepsis, UTI, failed outpatient treatment Patient meets criteria for severe sepsis- given UTI, elevated white count with bandemia, elevated lactate. Patient started on IV Rocephin and IV vancomycin. Blood cultures were obtained prior to antibiotic initiation. Will recheck venous lactate as per sepsis protocol. Patient did receive aggressive fluid resuscitation 30 M/kg in the emergency room-2800 ML total. Continue with gentle hydration-NS at 100 ML per hour Will obtain CT scan the abdomen and pelvis to rule out renal calculi, hydroureter or hydronephrosis given patient's history Monitor Accu-Cheks routinely. Place Xigduo (metformin combo) on hold given increase in renal function. Sliding scale Novolog with meals. continue Tresiba 100 units at HS Resume other home medications. Patient does request to be a full code and this orders written Recheck CBC, BMP and pro-calcitonin tomorrow to follow blood count, renal function and electrolytes. At time of discharge medical care will return to primary care provider, Dr. Noland 06/16/17 Continue current broad spectrum antibiotics including vancomycin/Rocephin Await culture results, urine and blood Hold further IVR today and monitor BP Monitor for aspiration risk Continue current insulin regimen and monitor blood sugars, add correction scale aspart Repeat renal panel, CBC in AM for surveillance of renal function, electrolytes, leukocytosis Continue current home medications as ordered 06/17/17 Continue current broad spectrum antibiotics including vancomycin/Rocephin Await culture results, urine and blood (urine with early growth, blood cx with NGTD) Ambulate TID today Discontinue telemetry monitoring PT/OT evaluation for AM; may ultimately benefit from rehab stay depending on how he does Add k phos QID today and recheck phos in AM 06/18/17 Continue Rocephin for coverage-may stop vancomycin. Blood cultures remain negative. Urine culture revealed yeast, otherwise unremarkable. 06/19/17 Yesterday we discovered his home Cogentin dose was 0.5mg BID - not 1mg BID. Likely increase of this medication contributing to cognitive slowing. Held evening dose last night and reduced to 0.5mg BID this am. Will check Depakote level to make sure not elevated. Continue low flow IVF of 1/2NS at [address] Continue with Rocephin - WBC trending down. Urine culture showing not bacterial growth. Encourage PT/OT to help improve functional status. Still very weak and debilitated. Blood sugars stable. Continue to monitor. 06/20/17 Overall mentation and sedation is improved with decrease if Cogentin dose. In today with Rocephin for antimicrobial coverage, vancomycin was stopped. Blood cultures remain negative Overall labs stable- Depakote level is normal (therapeutic). WBC count normalized today to 9.7 Continue to improve PT/OT for strengthening 06/21/17 Continue Rocephin for urinary coverage. Will continue low flow IVF as sodium still with elevation. IRU screen placed but patient declined. Concern with his decreased strength his care needs are too high for his parents to handle at home. Encourage continue work with therapy and nursing ambulation to help strengthening. CM working on other discharge options. 06/22/17 Doing well overall. Strength slow to improve. Family concerned that with his weakness, would be too much care for them at home. Father did convince patient to spend time on jail to improve strength. CM has made arrangements for care at [facility]. Will discharge to [facility] in stable condition. F/U with Dr Noland in 1 week. See orders for details. DVT Prophylaxis: SCD's, Lovenox Discharge Plan - Med Rec/Dispo Referrals/Follow Up: Nirav Noland II, MD [Family Provider] - 1 Week (Hospital follow up ) Dipak Instructions: Sepsis (GEN) Prescriptions: New Levothyroxine Sodium [Synthroid] 100 mcg PO ACB tablet Continue Divalproex Sodium [Depakote] 500 mg PO QAM #0 Allopurinol 300 mg PO DAILY #0 Benztropine Mesylate 0.5 mg PO BID #0 Vit C/E/Zn/Coppr/Lutein/Zeaxan [Preservision Areds 2 Softgel] 1 cap PO BID #0 Divalproex Sodium 250 mg PO HS #0 Ultimate Pro Support 1 tab PO DAILY Cetirizine [Zyrtec] 10 mg PO DAILY Maurice-3 Acid Ethyl Esters 2 gm PO BID Levothyroxine Sodium 100 mcg PO ACB Bentotiamine 2 tab PO BID Carvedilol [Coreg] 12.5 mg PO BID #0 Divalproex [Depakote] 1,000 mg PO HS #0 Triamterene/Hydrochlorothiazid [Triamterene-Hctz 75-50 mg Tab] 0.5 tab PO DAILY #0 Dapagliflozin/Metformin HCl [Xigduo Xr 5 mg-1,000 mg Tablet] 1 tab PO BID #0 Montelukast Sodium 10 mg PO HS #0 Insulin Degludec [Tresiba Flextouch U-100] 20 unit SQ HS Paliperidone [Paliperidone ER] 6 mg PO DAILY Discontinued Ciprofloxacin HCl [Ciprofloxacin HCl] 500 mg PO Q12H Alamax Cr 1 tab PO DAILY Discharge Instructions/Outpatient Orders: Final Provider Discharge Instructions Location: Determined By Patient - Disposition 03 To [facility] Not [facility] (SNF) - Attestation Attestation Narrative: 06/22/17 15:00 I have independently interviewed and examined patient prior to discharge. Medically stable for discharge to jail.
[2017-06-22 15:14] VITALS: BP 115/69; PULSE 72; RESP 18; O2SAT 97
--- NOTE | 2017-06-22 15:16 | Extended Care Facility Orders ---
Admission Orders Admit to:: Care Home Allergies/Adverse Reactions: Allergies Penicillins Allergy (Severe, Verified 06/15/17 09:20) ANAPHYLACTIC SHOCK Admitting Diagnosis: severe sepsis - resolved. Weakness. Admitting Physician: Anish Galan MD Attending Physician: Dr Noland Code Status: Full Code Anticiapted Length of Stay: 30 days or less Rehab Potential: fair Rehab Prognosis: fair Diet: No added salt, no concentrated sweets May use Facility Protocol or Standing Orders: Yes May have flu vaccine: Yes Evaluations/Treatment: PT, OT Care Home Certification: I certify that SNF services are required to be given on an Inpatient basis because of the patients need for prison care on a continuing basis for the condition(s) for which he/she received inpatient hospital services prior to his/her transfer to the SNF. SNF inpatient care is necessary for the following reasons Indication for Care Home: Diabetic Education, Teach Diabetes Mellitus Management, Other (Skilled PT/OT to maximize functional status ) - Additional Information In Event of Arrest: Start CPR,call 911,send patient to the ER Resident is Aware of Diagnosis: Yes Referrals: Nirav Noland II, MD [Family Provider] - 1 Week (Hospital follow up ) Additional Orders: F/U with Dr Noland in 1 week. Accucheck ac meals, q hs, and prn.
== END 2017-06-22 16:13 | DRG 872 ==
LOC: ED 09:10 → MED 10:52
PROVIDERS: ADMIT Hospitalist; ATTEND Hospitalist

== ENCOUNTER 2017-07-26 20:50 | Inpatient (IN) ==
[2017-07-26] MEDS: SALINE FLUSH 10ml SYRINGE IVF PRN (22:02)
[2017-07-26] MEDS ORDERED: NS 1,000 ML IV ONE ×2 (22:09→23:52)
--- OUTSIDE RECORDS SUMMARY | 2017-07-26 22:46 | External Medical Summary ---
[...] Date Status Dosage System Date Fish Oil [facility] 67663-22 1000 MG Orally 2 capsule 71-40 Twice a day Carvedilol [facility] 83945-61 25 MG Orally 1 tablet 96-01 Twice a day with food Zyrtec Allergy [facility] 26349-32 10 MG Orally 1 tablet 04-43 Once a day Triamterene-HCTZ [facility] 93220-56 37.5-25 MG 1 tablet 52-01 Orally Once a in the day morning Divalproex Sodium [facility] 42320-57 500 MG Orally 1 tab in 41-01 Twice a day am and 3 tabs at bedtime Invega [facility] 42674-77 6 MG Orally Once 1 tablet 55-30 a day in AM Levemir [facility] 06064-75 100 UNIT/ML 50 units 87-12 Subcutaneous as directed for Diabetes Levothyroxine [facility] 35508-53 75 MCG Orally 1 tablet Sodium 55-00 Once a day on an empty stomach in the morning Benfotiamine [facility] 25793-12 150 MG Orally 4 1 capsu 142 times a day Benztropine [facility] 09397-47 1 MG Orally 1 tablet Mesylate 00-00 twice a day Procedures Procedure Coding System Code Date OFFICE VISIT, EST-MOD. COMPLEXITY (25 MIN) CPT-4 38213 March 16, 2015 Vital Signs Date/Time: March 16, 2015 Height 64.5 in Weight 225 lbs Temperature 99.2 F Blood Pressure Diastolic 78 mm Hg Blood Pressure Systolic 130 mm Hg Cardiac Monitoring Heart Rate 68 /min BMI 38.02 Index Respiratory Rate 20 /min Results No Known Results Summary Purpose eClinicalWorks Submission
--- OUTSIDE RECORDS SUMMARY | 2017-07-26 22:46 | External Medical Summary ---
:1960 Author Organization e[employer] Care Team Providers Name Role Phone Aleksandra Higgins Provider Role Unavailable Allergies No Known Allergies Problems Problem Type Condition Code Onset Dates Condition Status Problem Bipolar disorder, current episode F31.2 Active manic severe with psychotic features Problem Personality disorder, unspecified F60.9 Active Problem Other shelter (current) drug Z79.899 Active therapy Assessment Other shelter (current) drug Z79.899 Active therapy Medications Medication Code System Code Instructions Start End Date Status Dosage Date Divalproex NDC 44326-66 500 MG Orally Jul 12, 1 tab in am Sodium 41-01 Twice a day 2014 and 2 tabs at bedtime Divalproex NDC 06268-96 250 MG Orally April 04, 1 tablet Sodium 40-01 Once a day at 2015 bedtime (along with [id number]) Results No Known Results Summary Purpose eClinicalWorks Submission
--- OUTSIDE RECORDS SUMMARY | 2017-07-26 22:46 | External Medical Summary ---
[...] Instructions Start Date End Date Status Dosage [facility] [address] 6 MG Orally Once Jul 05, 1 tablet -30 a day in AM 2014 Results No Known Results Summary Purpose eClinicalWorks Submission
--- OUTSIDE RECORDS SUMMARY | 2017-07-26 22:46 | External Medical Summary ---
[...] Personality disorder, unspecified F60.9 Active Assessment Other termite technician (current) drug Z79.899 Active therapy Medications Medication Code Code Instructions Start End Status Dosage System Date Date Benztropine [facility] [id number] 1 Orally take one Mesylate tablet by mouth twice a day Divalproex Sodium [facility] [address]-45 500 MG Orally Oct 26, 1 tab in Twice a day 2014 am and 3 tabs at bedtime Levothyroxine [facility] [address]-80 75 MCG Orally 1 tablet Sodium Once a day on an empty stomach in the morning DiphenhydrAMINE [facility] [address]-69 25 MG Orally Dec , 1-2 HCl (Sleep) Once a day 2015 capsules at bedtime as needed Triamterene-HCTZ [facility] [address]-23 37.5-25 MG 1/2 tablet Orally Once a in the day morning Benfotiamine [facility] 33559-62569 150 MG Orally 1 capsu 4 times a day Invega [facility] [address]-42 6 MG Orally Oct 19, 1 tablet Once a day in 2014 AM Levemir [facility] [address]-94 100 UNIT/ML 50 units Subcutaneous as directed for Diabetes Fish Oil [facility] [address]-12 1000 MG Orally 2 capsule Twice a day Carvedilol [facility] [address]-66 25 MG Orally 1 tablet Twice a day with food Zyrtec Allergy [facility] [address]-77 10 MG Orally 1 tablet Once a day Avastin [facility] [address]-77 100 MG/4ML not Intravenous defined Procedures Procedure Coding System Code Date COMPLETE CBC W/AUTO DIFF WBC CPT-4 24717 Sep 14, 2015 TSH WITH REFLEX T4 CPT-4 42123 Sep 14, 2015 OFFICE VISIT, EST-MOD. COMPLEXITY (25 MIN) CPT-4 53706 Sep 14, 2015 IH CMP CPT-4 21207 Sep 14, 2015 VALPROIC ACID CPT-4 11149 Sep 14, 2015 IH LIPID PANEL CPT-4 19222 Sep 14, 2015 Vital Signs Date/Time: Sep 14, 2015 Height 64.5 in Weight 224.12 lbs Temperature 99.6 F Blood Pressure Diastolic 82 mm Hg Blood Pressure Systolic 130 mm Hg Cardiac Monitoring Heart Rate 78 /min BMI 37.87 Index Respiratory Rate 20 /min Results No Known Results Summary Purpose eClinicalWorks Submission
--- NOTE | 2017-07-27 00:23 | Emergency Department Report ---
General Adult HPI - General Chief complaint: Medical Emergency Stated complaint: immobile Time Seen by Provider: 07/26/17 22:08 - History of Present Illness HPI narrative: 57-year-old male presents with syncopal episode. Patient has history of bipolar disorder lives at home with his parents, but lives independently. He was brought into the waiting room by his father, placed in a chair and his father left the hospital. Patient was unable to answer any questions initially on arrival. He was incontinent of urine while in the waiting room and when brought back to the emergency room, had stool in his pants. Fluid resuscitation was initiated and patient became more responsive. Ultimately stating that He has been feeling weak and tired the last couple of days. Is unable to care for himself currently due to the weakness. Denies fever or chills. Positive nausea, no vomiting. No diarrhea. Patient's chart is reviewed and is noted that he was admitted to our hospitalist service June 15 for UTI and severe sepsis. He was noted to have both bacteria and yeast in his urine at the time. He is diabetic and requires insulin. - Related Data Home Medications Medication Instructions Recorded Confirmed Carvedilol [Coreg] 12.5 mg PO BID #0 07/01/10 07/26/17 Divalproex Sodium [Depakote] 500 mg PO QAM #0 07/01/10 07/26/17 Allopurinol 300 mg PO DAILY #0 12/04/15 07/26/17 Benztropine Mesylate 0.5 mg PO BID #0 12/04/15 07/26/17 Divalproex [Depakote] 1,000 mg PO HS #0 12/04/15 07/26/17 Divalproex Sodium 250 mg PO HS #0 12/02/16 07/26/17 Cetirizine [Zyrtec] 10 mg PO DAILY 06/15/17 07/26/17 Insulin Degludec [Tresiba 20 unit SQ HS 06/15/17 07/26/17 Flextouch U-100] Levothyroxine Sodium 100 mcg PO ACB 06/15/17 07/26/17 Paliperidone [Paliperidone ER] 6 mg PO DAILY 06/15/17 07/26/17 Dulaglutide [Trulicity] 1 dose SQ Q7D 07/26/17 07/26/17 Phenazopyridine HCl 200 mg PO TID 07/26/17 07/26/17 [Phenazopyridine HCl] Allergies Allergy/AdvReac Type Severity Reaction Status Date / Time Penicillins Allergy Severe ANAPHYLACTIC Verified 06/15/17 09:20 SHOCK Review of Systems All systems: reviewed and negative except as stated PFS Patient Stated Medical History Cataracts Yes: bilateral-removed Cardiac Arrhythmia Yes: "touch of afib" Hypertension Yes Bronchitis Yes: as a child Diabetes Mellitus Type 2 Yes Hx Urinary Tract Infection Yes Other Yes: urinary retention Sepsis Yes Bipolar Disorder Yes Clinic Medical History Sepsis (Acute Medical) Pyelonephritis (Acute Medical) Severe sepsis (Acute Medical) UTI (urinary tract infection) (Acute Medical) Encephalopathy acute (Acute Medical) Surgical History: Cataract extraction b/l. Sebacious cyst removed from back Family History: Family History (Last Updated 05/08/17 @ 13:21 by Kelli Phillips) Father No problems noted. - Social History Current residence: Apartment/Private Home Physical Exam - Limitations Limitations: altered mental status - General General appearance: lethargic - Normal Exams: Head:: Normocephalic without trauma Chest/Respirations:: Clear all [place], with good airflow, and symmetry bilaterally Cardiovascular:: Regular rate and rhythm, without murmur or gallop, Pulses 2+ all extremities, capillary refill, <2 seconds all extremities Abdomen:: Bowel sounds positive, soft, non-tender, non-distended, no hepatosplenomegaly, masses or bruits noted Course Vital Signs Temperature 98.4 F 07/26/17 21:00 Pulse Rate 119 H 07/26/17 21:00 Respiratory Rate 20 07/26/17 21:00 Blood Pressure 133/76 07/26/17 21:00 Pulse Oximetry 90 07/26/17 21:00 Temperature 99.5 F 07/27/17 03:01 Pulse Rate 98 07/27/17 04:04 Respiratory Rate 22 07/27/17 04:04 Blood Pressure 133/72 07/27/17 03:01 Pulse Oximetry 94 07/27/17 04:04 Medical Decision Making - MDM Narrative Medical decision making narrative: 1 L normal saline started IV. Labs obtained. Initial glucose checked and is 162. Patient self catheters, therefore Farris catheter was placed. 1 L of urine was drained and cord was clamped. 30 minutes later cord was reopened and another 2 50 cc was drained. Urine shows hyphae and bacteria. WBC is normal, but BUN is 75 and creatinine is 1.7. Patient is a one previous episode of elevated creatinine on 929 when he was admitted for urosepsis. He has received 1.5 L fluid IV. - Lab Data Result diagrams: 07/26/17 22:20 07/26/17 22:25 Lab Results 07/26/17 07/26/17 07/26/17 Range/Units 22:20 22:25 22:25 WBC 10.7 (4.5-11.0) T/MM3 RBC 4.16 L (4.50-5.90) M/MM3 Hgb 12.1 L (13.5-17.5) GM/DL Hct 37.8 L (41-53) % MCV 90.9 (80-100) UM3 MCH 29.1 (26-34) UUG MCHC 32.0 (31-37) GM/DL RDW Std Deviation 49.9 (36.9-50.2) FL Plt Count 228 (130-400) T/MM3 MPV 8.6 L (9.4-12.4) UM3 Immature Gran % (Auto) Not performed Neut % (Auto) Not performed Lymph % (Auto) Not performed Yancey % (Auto) Not performed Eos % (Auto) Not performed Baso % (Auto) Not performed Neut # (Auto) Not performed Lymph # (Auto) Not performed Yancey # (Auto) Not performed Eos # (Auto) Not performed Baso # (Auto) Not performed Abs Immat Gran (auto) Not performed Neutrophils % (Manual) 69.0 H (33-66) % Band Neutrophils % 8.0 H (0-6) % Lymphocytes % (Manual) 11.0 L (23-45) % Monocytes % (Manual) 12.0 H (0-9.0) % Neutrophils # (Manual) 7.4 (1.8-7.7) T/MM3 Band Neutrophils # 0.9 T/MM3 Lymphocytes # (Manual) 1.2 (1-4.8) T/MM3 Monocytes # (Manual) 1.3 H (0-0.8) T/MM3 RBC Morph Comment Normal Turbidity < 20 (0-20) Sodium 139 (134-144) MEQ/L Potassium 4.4 (3.6-5) MEQ/L Chloride 101 (98-107) MEQ/L Carbon Dioxide 24 (22-30) MEQ/L Anion Gap 14 (5-15) MEQ/L BUN 75.0 H* (9-20) MG/DL Creatinine 1.7 H (0.8-1.5) MG/DL GFR Calculation 42 BUN/Creatinine Ratio 44 H (6-26) RATIO Glucose 247 H (75-110) MG/DL Calculated Osmolality 298 H (261-280) MOSM/KG Calcium 10.1 (8.4-10.2) MG/DL Total Bilirubin 0.40 (0.20-1.30) MG/DL Icterus Index < 2 (0-7) AST 21 (17-59) U/L ALT 21 (21-72) U/L Alkaline Phosphatase 107 (38-126) U/L Total Protein 9.0 H (6.3-8.2) G/DL Albumin 4.0 (3.5-5.0) G/DL Globulin 5.0 H (2.4-3.6) G/DL Albumin/Globulin Ratio 0.8 L (1.1-2.2) RATIO Plasma Lactate 2.2 (0.6-2.2) MMOL/L Specimen Hemolysis < 15 (0-25) Ur Collection Type Urine, farris Urine Color Yellow (YELLOW) Urine Clarity Sl cloudy Urine pH 6.0 (5.0-8.0) Ur Specific [place] 1.010 L (1.015-1.025) Urine Protein 2+ A (NEGATIVE) Urine Glucose (UA) 3+ A (NEGATIVE) Urine Ketones Negative (NEGATIVE) Urine Occult Blood 1+ A (NEGATIVE) Urine Nitrate Positive A (NEGATIVE) Urine Bilirubin Negative (NEGATIVE) Urine Urobilinogen 0.2 (NORMAL) EU/DL Ur Leukocyte Esterase 2+ A (NEGATIVE) Urine RBC 1-3 (0-3) /HPF Urine WBC Tntc H (0-5) /HPF Urine Bacteria 2+ H (NEGATIVE) Urine Yeast Pseudohyphae present A (NEGATIVE) Ur Culture Indicated? Cult reflexed &setup Disposition Clinical Impression: UTI (urinary tract infection), Renal insufficiency
[2017-07-27] MEDS ORDERED: ACETAMINOPHEN 325 MG TABLET PO PRN (03:26)
[2017-07-27] MEDS ORDERED: DOCUSATE SODIUM 100 MG CAPSULE PO PRN (03:26)
[2017-07-27] MEDS ORDERED: ONDANSETRON 4 MG/2 ML INJECTION IVP PRN (03:26)
[2017-07-27] MEDS: NS 1,000 ML IV SCH ×2 (03:43→15:38)
[2017-07-27] MEDS: LEVOFLOXACIN PB 750 MG/150 ML BAG IV SCH (04:07)
--- NOTE | 2017-07-27 05:07 | History & Physical Report ---
History of Present Illness Date: 07/27/17 Chief complaint: syncope HPI: The pt was reportedly found unconscious by his father who brought him to the ER and then promptly left the hospital before any more information was able to be obtained. During my interview, he was unable to answer any questions but was alert and had his eyes open. He was in no distress Review of Systems ROS unobtainable: due to mental status [facility] Medical History Sepsis (Acute Medical) Pyelonephritis (Acute Medical) Severe sepsis (Acute Medical) UTI (urinary tract infection) (Acute Medical) Surgical History: Cataract extraction b/l. Sebacious cyst removed from back Family History: Family History (Last Updated 05/08/17 @ 13:21 by Kelli Phillips) Father No problems noted. - Social History Current residence: Apartment/Private Home Medications Home Medications Medication Instructions Recorded Confirmed Type Carvedilol [Coreg] 12.5 mg PO BID #0 07/01/10 07/26/17 History Divalproex Sodium [Depakote] 500 mg PO QAM #0 07/01/10 07/26/17 History Allopurinol 300 mg PO DAILY #0 12/04/15 07/26/17 History Benztropine Mesylate 0.5 mg PO BID #0 12/04/15 07/26/17 History Divalproex [Depakote] 1,000 mg PO HS #0 12/04/15 07/26/17 History Divalproex Sodium 250 mg PO HS #0 12/02/16 07/26/17 History Cetirizine [Zyrtec] 10 mg PO DAILY 06/15/17 07/26/17 History Insulin Degludec [Tresiba 20 unit SQ HS 06/15/17 07/26/17 History Flextouch U-100] Levothyroxine Sodium 100 mcg PO ACB 06/15/17 07/26/17 History Paliperidone [Paliperidone ER] 6 mg PO DAILY 06/15/17 07/26/17 History Dulaglutide [Trulicity] 1 dose SQ Q7D 07/26/17 07/26/17 History Phenazopyridine HCl 200 mg PO TID 07/26/17 07/26/17 History [Phenazopyridine HCl] Allergies Allergy/AdvReac Type Severity Reaction Status Date / Time Penicillins Allergy Severe ANAPHYLACTIC Verified 06/15/17 09:20 SHOCK Exam Vital Signs: Temperature 99.5 F 07/27/17 03:01 Pulse Rate 98 07/27/17 04:04 Respiratory Rate 22 07/27/17 04:04 Blood Pressure 133/72 07/27/17 03:01 Pulse Oximetry 94 07/27/17 04:04 - Constitutional Present: no acute distress, somnolent - Routine Respiratory Exam Present: CTA bilaterally - Routine Cardiovascular Exam Present: RRR, no murmur - Routine Abdominal Exam Present: soft, non tender. Absent: guarding - Routine Extremities Exam Absent: edema Results - Labs CBC & Chem 7: 07/26/17 22:20 07/26/17 22:25 Assessment and Plan (1) Encephalopathy acute Current visit: Yes Status: Acute (2) Sepsis Current visit: No Status: Acute (3) UTI (urinary tract infection) Current visit: No Status: Acute Assessment and Plan: IVfluids being given, started on Levoquin. He was given abx-Keflex 4 days ago by PCP but pt was not taking it. Compliance will be a huge issue for him, SW may want to consider placement for this individual, yeast also has been growing out of his urine, cultues from today are pending. farris placed in ER and returned 1250, unknown what his baseline mental status is. DVT Prophylaxis: SCD's GI Prophylaxis: Pepcid Hospital Course Summary Disclaimer: The visit summary below is not to be considered part of the above Progress Note.
[2017-07-27] MEDS: FLUCONAZOLE 100 MG TABLET PO SCH (08:34)
--- NOTE | 2017-07-27 11:45 | History & Physical Report ---
History of Present Illness Date: 07/27/17 Chief complaint: altered mentation, urinary tract infection HPI: Mr Ramirez is a 57-year-old male who is known to the hospitalist services from prior admissions. He resides at home with his parents. It is reported that patient was found unconscious possibly following a syncopal by his father and was brought to the emergency room last evening for further evaluation and treatment. Patient was dropped off by his father and left alone. During his emergency room evaluation, he had altered mentation and was unable to get accurate information from patient. Initially. Patient was found to have incontinence of urine. Further medical evaluation did reveal urinary tract infection with urinalysis revealing 2+ protein, 3+ glucose, 1+ blood, positive nitrates, 2+ leukocyte esterase with too numerous to count WBCs, 2+ bacteria and yeast presents. CBC revealed a normal white count of 10.7, however, 69% neutrophils and 8% bandemia. Electro-lites are normal, renal function was found to be slightly elevated from his baseline with a BUN of 75 and creatinine 1.7. Initial glucose was elevated at 247. Hemoglobin A1c 8.8. On arrival to the emergency room. Patient was tachycardic at 119, blood pressure was stable 133/76 , patient was afebrile. He was started on IV fluids and given IV Levaquin for antimicrobial coverage. Patient is seen this morning for initial medical examination. He is in room, up in the chair, resting. He is alert and able to give somewhat of a history. He reports that he recently saw Dr. Kauffman urologist this past week for ongoing urinary retention. He was instructed to self catheter 4 times a day, however, patient reports he had not started this. It is also reported that he was given a prescription for Keflex several days ago by his PCP P for treatment of a urinary tract infection. However, he has not started this. Patient is somewhat vague with his answers. He is difficult to get specific details. Upon history of present illness patient states she has felt weak for several days. Review of Systems All systems PM: 10-point ROS was reviewed, no additional remarkable complaints except - Constitutional Constitutional: Present: fatigue, weakness - Genitourinary Genitourinary: Present: difficulty urinating PFSH Diabetes- Type 2 Hypertension Hyperlipidemia Hypothyroidism Depression IBS History small bowel obstruction BPH History of Atrial fibrillation Cataracts Bipolar Disorder History of hydroureter and hematuria Surgical History: Cataract extraction b/l. Sebacious cyst removed from back Family History: Strong hx of diabetes on maternal side. Maternal grandfather of colon cancer at age 60. Maternal grandmother had Parkinson's. Both paternal grandparents of cancer - esophageal cancer in grandfather and lung cancer in grandmother, paternal grandfather also had coronary artery disease. Father is 75, has COPD (was a patcher wood welder) Mother sees a neurologist for neuropathy in legs, and also has bipolar, hyperlipidemia and hypothyroidism - Social History Smoking status: Never smoker Substance use type: does not use Current residence: Apartment/Private Home Social history: Primary care provider, Dr. Noland. Urologist Dr. Kauffman Medications Home Medications Medication Instructions Recorded Confirmed Type RX: Carvedilol [Coreg] 12.5 mg PO BID #0 07/01/10 07/26/17 History RX: Divalproex Sodium [Depakote] 500 mg PO QAM #0 07/01/10 07/26/17 History RX: Allopurinol 300 mg PO DAILY #0 12/04/15 07/26/17 History RX: Benztropine Mesylate 0.5 mg PO BID #0 12/04/15 07/26/17 History RX: Divalproex [Depakote] 1,000 mg PO HS #0 12/04/15 07/26/17 History RX: Divalproex Sodium 250 mg PO HS #0 12/02/16 07/26/17 History RX: Cetirizine [Zyrtec] 10 mg PO DAILY 06/15/17 07/26/17 History RX: Insulin Degludec [Tresiba 20 unit SQ HS 06/15/17 07/26/17 History Flextouch U-100] RX: Levothyroxine Sodium 100 mcg PO ACB 06/15/17 07/26/17 History RX: Paliperidone [Paliperidone ER] 6 mg PO DAILY 06/15/17 07/26/17 History Dulaglutide [Trulicity] 1 dose SQ Q7D 07/26/17 07/26/17 History Phenazopyridine HCl 200 mg PO TID 07/26/17 07/26/17 History [Phenazopyridine HCl] Allergies Allergy/AdvReac Type Severity Reaction Status Date / Time Penicillins Allergy Severe ANAPHYLACTIC Verified 06/15/17 09:20 SHOCK Exam Vital Signs: Temperature 96.7 F L 07/27/17 07:23 Pulse Rate 103 H 07/27/17 11:26 Respiratory Rate 18 07/27/17 07:23 Blood Pressure 125/69 07/27/17 07:23 Pulse Oximetry 93 07/27/17 07:23 Height/Weight/BMI: Weight 88.6 kg - Constitutional Present: no acute distress, well nourished, well developed - Routine HEENT Exam Eye: Present: EOMI ENT: Present: mucous membranes moist, dentition normal - Routine Neck Exam Present: full ROM - Routine Respiratory Exam Present: CTA bilaterally. Absent: wheezes - Routine Cardiovascular Exam Present: RRR, S1, S2. Absent: murmur - Routine Abdominal Exam Present: soft, normoactive bowel sounds, non distended. Absent: tenderness - Routine Extremities Exam Present: full ROM - Routine Back/Spine/Pelvis Exam Back/Spine: Present: full ROM - Routine Skin Exam Present: intact, dry, warm - Routine Neurological Exam Present: alert, CN II-XII intact, moving all extremities - Routine Psychiatric Exam Comments: Flat affect Results - Labs CBC & Chem 7: 07/26/17 22:20 07/27/17 11:25 Assessment and Plan (1) Encephalopathy acute Current visit: Yes Status: Acute (2) Sepsis Problem details: Severe sepsis due to UTI Current visit: No Status: Acute (3) UTI (urinary tract infection) Problem details: Failed outpatient therapy Current visit: Yes Status: Acute Assessment and Plan: Impression Acute encephalopathy. Sepsis- sepsis criteria including tachycardia, bandemia, encephalopathy with the presence of infection Urinary tract infection- POA Urinary retention-total of 1250 ML's at time of Sanchez catheter placement Acute kidney injury-admission creatinine 1.7 Health compliance deficit Diabetes Hypertension Hyperlipidemia Hypothyroidism Depression. Bipolar/schizophrenia Left lower lobe pulmonary nodule on CT earlier this year Plan Patient is admitted as an inpatient under the care of the hospitalist services, Dr. Robertson to take over care of this morning. Patient did receive aggressive IV fluids while in the emergency room. A repeat venous lactate did normalize Patient was given IV Levaquin for antimicrobial coverage. May want to consider changing antibiotics as Levaquin may cause encephalopathy as well as worsening renal function. Blood culture and urine culture are pending. Did review old urine culture from May 2017 which was positive for Yuridia only. Given presence of Yeast on admission UA will give Diflucan x1. Sanchez catheter has been placed. Given retention. Concerned that patient is unable to self catheterize himself at home as patient appears to have some compliance issues. Continue with normal saline at 100 ML per hour for gentle hydration Nursing staff did report some loose stool this morning, GI panel was obtained found to be negative. Continue to monitor Accu-Cheks Resume home medications Follow routine CBC and BMP to follow blood counts, renal function and electrolytes Consultation with PT and OT to evaluate patients function and ability to ambulate Consult to case management to help with possible discharge, arrangements for placement. Concerned that patient is not able to safely care for himself while living with his parents were elderly. Orders and plan of care discussed with attending, Dr. Robertson. Time of discharge medical care will return to primary care provider, Dr. Noland 06/27/172033; Dina Robertson M.D. I have independently evaluated and examined this patient. I reviewed the chart, the patient's history, and the METER MAKER/PA's documented findings as above. We discussed and formulated the assessment and plan as above with additions as below: Mr. Ramirez was relatively alert when seen later this afternoon reporting generalized weakness and inability to stand yesterday requiring that his father and a cousin carry him to the car to bring him to the emergency room. He did not describe the syncope or altered mental status subsequently reported in the emergency room. Urinary retention was identified as described above in addition to ongoing pyuria/bacteriuria despite outpatient treatment. Lactic acid was again elevated. Patient reports he has tried straight catheterizations in the past when under the care of Dr. Mccray and was able to straight catheter without difficulty but didn't like the catheters due to texture/stickiness of the catheters themselves. When seen the patient was alert and cooperative, speech was fluent Respirations nonlabored, good airflow, breath sounds are clear although deep inspiration triggers a cough Regular rhythm, S1-S2 Abdomen is soft, nontender, there is no palpable mass nor suprapubic tenderness. Bowel sounds are present. Old records reviewed-in addition to problems previously described it is noted that the patient had an 8 mm left lower lobe nodule on CT imaging in November of this year for which follow-up evaluation in 6 months was recommended. We'll attempt to clarify if outpatient imaging has been obtained. Repeat electrolytes this afternoon with improving renal function and potassium of 3.5-fluids being modified to NS with 20 mEq KCl. Acute kidney injury largely due to bladder obstruction I suspect. Improving with catheter placement. Chest x-ray in a.m. for evaluation of cough. Hospital Course Summary Disclaimer: The visit summary below is not to be considered part of the above Progress Note. Hospital Course: 07/27/17 - admission Impression Acute encephalopathy. Sepsis- sepsis criteria including tachycardia, bandemia, encephalopathy with the presence of infection Urinary tract infection- POA Urinary retention-total of 1250 ML's at time of Sanchez catheter placement Health compliance deficit- Diabetes Hypertension Hyperlipidemia Hypothyroidism Depression. Bipolar was schizophrenia Plan Patient is admitted as an inpatient under the care of the hospitalist services, Dr. Robertson to take over care of this morning. Patient did receive aggressive IV fluids while in the emergency room. A repeat venous lactate did normalize Patient was given IV Levaquin for antimicrobial coverage. May want to consider changing antibiotics as Levaquin may cause encephalopathy as well as worsening renal function. Blood culture and urine culture are pending. Did review old urine culture from May 2017 which was positive for Yuridia only. Given presence of Yeast on admission UA will give Diflucan x1. Sanchez catheter has been placed. Given retention. Concerned that patient is unable to self catheterize himself at home as patient appears to have some compliance issues. Continue with normal saline at 100 ML per hour for gentle hydration Nursing staff did report some loose stool this morning, GI panel was obtained found to be negative. Continue to monitor Accu-Cheks Resume home medications Follow routine CBC and BMP to follow blood counts, renal function and electrolytes Consultation with PT and OT to evaluate patients function and ability to ambulate Consult to case management to help with possible discharge, arrangements for placement. Concerned that patient is not able to safely care for himself while living with his parents were elderly. Orders and plan of care discussed with attending, Dr. Robertson. Time of discharge medical care will return to primary care provider, Dr. Noland
[2017-07-27] MEDS: INSULIN ASPART 100unit/ml INJECTION SQ PRN ×3 (12:00→23:24)
[2017-07-27] MEDS: PHENAZOPYRIDINE 95 MG TABLET PO SCH ×2 (15:39→20:51)
[2017-07-27] MEDS: CARVEDILOL 12.5 MG TABLET PO SCH (18:06)
[2017-07-27] MEDS: DIVALPROEX 500 MG TABLET PO SCH (20:50)
[2017-07-27] MEDS: DIVALPROEX 250 MG TABLET PO SCH (20:50)
[2017-07-27] MEDS: SALINE FLUSH 10ml SYRINGE IVF PRN (20:51)
[2017-07-27] MEDS: BENZTROPINE 1 MG TABLET PO SCH (20:51)
[2017-07-27] MEDS: INSULIN DEGLUDEC 20 UNIT PO SCH (22:44)
[2017-07-28] MEDS: NS with KCL 20 mEq 1,000 ML IV SCH ×2 (02:14→16:34)
[2017-07-28] MEDS ORDERED: NS FLUSH BAG 500ml IV PRN (03:21)
[2017-07-28] MEDS: LEVOFLOXACIN PB 750 MG/150 ML BAG IV SCH (03:34)
[2017-07-28] MEDS: LEVOTHYROXINE 100 MCG TABLET PO SCH (06:03)
[2017-07-28] MEDS: PALIPERIDONE 3 MG PO SCH (09:52)
[2017-07-28] MEDS: PHENAZOPYRIDINE 95 MG TABLET PO SCH ×3 (09:52→21:40)
[2017-07-28] MEDS: CARVEDILOL 12.5 MG TABLET PO SCH ×2 (09:53→18:10)
[2017-07-28] MEDS: CETIRIZINE 10 MG TABLET PO SCH (09:53)
[2017-07-28] MEDS: BENZTROPINE 1 MG TABLET PO SCH ×2 (09:53→21:39)
[2017-07-28] MEDS: ALLOPURINOL 300 MG TABLET PO SCH (09:53)
[2017-07-28] MEDS: FLUCONAZOLE 100 MG TABLET PO SCH (09:53)
[2017-07-28] MEDS: DIVALPROEX 500 MG TABLET PO SCH ×2 (09:53→21:40)
[2017-07-28] MEDS: MAGNESIUM SULFATE 1gm PREMIX 1 GM/100 ML BAG IV SCH ×2 (12:15→14:53)
[2017-07-28] MEDS: INSULIN ASPART 100unit/ml INJECTION SQ PRN ×2 (12:24→23:12)
--- NOTE | 2017-07-28 15:30 | Progress Note ---
<Selene Wolf - Last Filed: 07/28/17 15:26> - Date 07/28/17 Subjective: Mr. Ramirez complains of pain with the catheter and would like it removed. He also is ready to go home. He has an occasional nonproductive cough but denies fever or SOA. Denies weakness or dizziness or chest pain. Objective Vital signs: Temperature 96.5 F L 07/28/17 14:56 Pulse Rate 78 07/28/17 14:56 Respiratory Rate 18 07/28/17 14:56 Blood Pressure 107/64 07/28/17 14:56 Pulse Oximetry 94 07/28/17 14:56 Height/Weight/BMI: Weight 92 kg - Constitutional Present: no acute distress, well nourished, well developed - Routine HEENT Exam Eye: Absent: conjunctival icterus ENT: Present: oropharynx clear - Routine Respiratory Exam Present: CTA bilaterally - Routine Cardiovascular Exam Present: RRR, S1, S2 - Routine Abdominal Exam Present: soft, normoactive bowel sounds, non tender - Routine Exam Comments: Sanchez to DD - Routine Extremities Exam Absent: calf tenderness - Routine Musculoskeletal Exam Musculoskeletal: Present: moving extremities well - Routine Skin Exam Present: dry, warm - Routine Neurological Exam Present: alert, oriented X3 - Routine Psychiatric Exam Present: cooperative. Absent: normal affect (flat) Results - Labs CBC & Chem 7: 07/28/17 06:29 07/28/17 06:29 - Imaging and Cardiology Chest x-ray Status: image reviewed by me (? slight infiltrate to RLL) Assessment and Plan (1) Sepsis Problem details: Severe sepsis due to UTI Current visit: No Status: Acute (2) UTI (urinary tract infection) Problem details: Failed outpatient therapy Current visit: Yes Status: Acute (3) Encephalopathy acute Current visit: Yes Status: Acute Assessment and Plan: Impression Acute encephalopathy - improving. Sepsis- sepsis criteria including tachycardia, bandemia, encephalopathy with the presence of infection Urinary tract infection-POA Urinary retention-total of 1250 ML's at time of Sanchez catheter placement Acute kidney injury-admission creatinine 1.7 Health compliance deficit Diabetes type 2; A1c 8.8% Hypertension Hyperlipidemia Hypothyroidism Depression. Bipolar/schizophrenia Left lower lobe pulmonary nodule on CT earlier this year Plan Renal function has returned to baseline. DC Sanchez and observe Karin straight cath QID to ensure technique/compliance are acceptable. Hgb decreased from 12.1 on admit to 9.5 this am - at least partly attributable to dilution effect. Check stool for occult blood. Continue Levaquin for UTI. BC shows no growth after 1 day. UC pending. WBC normal, afebrile. CXR - report pending. Mucinex PRN. DM2 with Hyperglycemia - continue Trulicity, Tresiba, and SSI. A1c was 8.8% on admission. Discussed with Dr. Robertson and RN. DVT Prophylaxis: SCD's Resuscitation Status: Full Code Hospital Course Summary Disclaimer: The visit summary below is not to be considered part of the above Progress Note. Hospital Course: 07/27/17 - admission Impression Acute encephalopathy. Sepsis- sepsis criteria including tachycardia, bandemia, encephalopathy with the presence of infection Urinary tract infection- POA Urinary retention-total of 1250 ML's at time of Sanchez catheter placement Health compliance deficit- Diabetes Hypertension Hyperlipidemia Hypothyroidism Depression. Bipolar was schizophrenia Plan Patient is admitted as an inpatient under the care of the hospitalist services, Dr. Robertson to take over care of this morning. Patient did receive aggressive IV fluids while in the emergency room. A repeat venous lactate did normalize Patient was given IV Levaquin for antimicrobial coverage. May want to consider changing antibiotics as Levaquin may cause encephalopathy as well as worsening renal function. Blood culture and urine culture are pending. Did review old urine culture from May 2017 which was positive for Yuridia only. Given presence of Yeast on admission UA will give Diflucan x1. Sanchez catheter has been placed. Given retention. Concerned that patient is unable to self catheterize himself at home as patient appears to have some compliance issues. Continue with normal saline at 100 ML per hour for gentle hydration Nursing staff did report some loose stool this morning, GI panel was obtained found to be negative. Continue to monitor Accu-Cheks Resume home medications Follow routine CBC and BMP to follow blood counts, renal function and electrolytes Consultation with PT and OT to evaluate patients function and ability to ambulate Consult to case management to help with possible discharge, arrangements for placement. Concerned that patient is not able to safely care for himself while living with his parents were elderly. Orders and plan of care discussed with attending, Dr. Robertson. Time of discharge medical care will return to primary care provider, Dr. Noland 07/28/17 Renal function has returned to baseline. DC Sanchez and observe Karin straight cath QID to ensure technique/compliance are acceptable. Hgb decreased from 12.1 on admit to 9.5 this am - at least partly attributable to dilution effect. Check stool for occult blood. Continue Levaquin for UTI. BC shows no growth after 1 day. UC pending. WBC normal, afebrile. CXR - report pending. Mucinex PRN. DM2 with Hyperglycemia - continue Trulicity, Tresiba, and SSI. A1c was 8.8% on admission. <MarceloOly L - Last Filed: 07/28/17 19:07> - Date 07/28/17 Objective Vital signs: Height/Weight/BMI: Results - Labs CBC & Chem 7: 07/28/17 06:29 07/28/17 06:29 Assessment and Plan (1) Encephalopathy acute Current visit: Yes Status: Acute (2) Sepsis Problem details: Severe sepsis due to UTI Current visit: No Status: Acute (3) UTI (urinary tract infection) Problem details: Failed outpatient therapy Current visit: Yes Status: Acute Assessment and Plan: I have independently evaluated and examined this patient. I reviewed the chart, the patient's history, and the BANK COMPLIANCE OFFICER/PA's documented findings as above. We discussed and formulated the assessment and plan as above with additions as below: Karin reports he has a bedsore about an inch and a half in diameter overlying the coccyx; he hasn't seen anyone for this previously. He denied dyspnea or nausea. He reports having plenty of supplies at home to self catheterize when discharged. NAD, alert 1 x 2 cm superficial decubitus ulcer overlying coccyx Abdomen benign, lung mayorga clear Barrier cream to ulceration Patient reports that follow-up of left lower lobe nodule is "in the pipeline" Urine culture pending, assess patient's ability to straight catheterize himself. Anticipate discharge in a.m. Discontinue IV fluids. Hospital Course Summary Disclaimer: The visit summary below is not to be considered part of the above Progress Note.
[2017-07-28] MEDS ORDERED: GUAIFENESIN/D-METHORPHAN 600mg/30mg TABLET PO PRN (15:33)
[2017-07-28] MEDS: DIVALPROEX 250 MG TABLET PO SCH (21:39)
[2017-07-28] MEDS: INSULIN DEGLUDEC 20 UNIT PO SCH (23:13)
[2017-07-29 02:03] VITALS: TEMP 97.3
[2017-07-29] MEDS: LEVOFLOXACIN PB 750 MG/150 ML BAG IV SCH (03:34)
[2017-07-29] MEDS: LEVOTHYROXINE 100 MCG TABLET PO SCH (06:28)
[2017-07-29 08:21] VITALS: BP 104/66; RESP 18; O2SAT 94
[2017-07-29] MEDS ORDERED: PALIPERIDONE ER 1.5mg TAB PO SCH (09:00)
--- NOTE | 2017-07-29 09:36 | XRay Report ---
INDICATION: cough PROCEDURE: CHEST 2-VIEWS UPRIGHT (PA & LAT) Encounter: Initial COMPARISON: June 15, 2017 FINDINGS: The lungs are clear without evidence of focal abnormal airspace opacity. There is no pleural effusion or pneumothorax. The heart size, mediastinal contours and pulmonary vascularity are within normal limits. There is no significant skeletal abnormality. IMPRESSION: No acute cardiopulmonary disease. .
[2017-07-29] MEDS: CARVEDILOL 12.5 MG TABLET PO SCH (10:29)
[2017-07-29] MEDS: DIVALPROEX 500 MG TABLET PO SCH (10:29)
[2017-07-29] MEDS: BENZTROPINE 1 MG TABLET PO SCH (10:29)
[2017-07-29] MEDS: PHENAZOPYRIDINE 95 MG TABLET PO SCH (10:29)
[2017-07-29] MEDS: FLUCONAZOLE 100 MG TABLET PO SCH (10:30)
[2017-07-29] MEDS: CETIRIZINE 10 MG TABLET PO SCH (10:30)
[2017-07-29] MEDS: ALLOPURINOL 300 MG TABLET PO SCH (10:30)
[2017-07-29] MEDS: INSULIN ASPART 100unit/ml INJECTION SQ PRN (11:10)
[2017-07-29 14:00] VITALS: PULSE 92
[2017-07-29] MEDS: PALIPERIDONE 3 MG PO SCH (14:45)
--- NOTE | 2017-07-29 21:57 | Discharge Summary ---
Discharge Information Date of admission: 07/27/17 02:03 Anticipated date of discharge: 07/29/17 Attending Physician: Oly Robertson MD Primary care physician: Nirav Ny II, MD Consults: - Discharge Diagnosis (1) Encephalopathy acute Status: Acute (2) Urinary retention Status: Acute Acute encephalopathy - improving. Sepsis- sepsis criteria including tachycardia, bandemia, encephalopathy with the presence of infection Urinary tract infection-POA Urinary retention-total of 1250 ML's at time of Sanchez catheter placement Acute kidney injury-admission creatinine 1.7 Health compliance deficit Diabetes type 2; A1c 8.8% Hypertension Hyperlipidemia Hypothyroidism Depression. Bipolar/schizophrenia - Laboratory Labs: On admission (07/26/17) white count was 10.7 with 8% bands, hemoglobin 12.1; creatinine 1.7, BUN 75, liver enzymes unremarkable; UA with too numerous to count white cells, +2 bacteria, and pseudohyphae Lactic acid 2.2 GI panel negative on 07/27 A1c 8.8 07/29/17 04:59 07/29/17 04:59 - Microbiology Blood cultures 2 negative after 48 hours Urine culture with 50,000-100,000 CFU daron albicans - Radiology Radiology: Chest x-ray on admission-NAD History of Present Illness HPI: Mr Ramirez is a 57-year-old male who is known to the hospitalist services from prior admissions. He resides at home with his parents. It is reported that patient was found unconscious possibly following a syncopal by his father and was brought to the emergency room last evening for further evaluation and treatment. Patient was dropped off by his father and left alone. During his emergency room evaluation, he had altered mentation and was unable to get accurate information from patient. Initially. Patient was found to have incontinence of urine. Further medical evaluation did reveal urinary tract infection with urinalysis revealing 2+ protein, 3+ glucose, 1+ blood, positive nitrates, 2+ leukocyte esterase with too numerous to count WBCs, 2+ bacteria and yeast presents. CBC revealed a normal white count of 10.7, however, 69% neutrophils and 8% bandemia. Electro-lites are normal, renal function was found to be slightly elevated from his baseline with a BUN of 75 and creatinine 1.7. Initial glucose was elevated at 247. Hemoglobin A1c 8.8. On arrival to the emergency room. Patient was tachycardic at 119, blood pressure was stable 133/76 , patient was afebrile. He was started on IV fluids and given IV Levaquin for antimicrobial coverage. Patient is seen this morning for initial medical examination. He is in room, up in the chair, resting. He is alert and able to give somewhat of a history. He reports that he recently saw Dr. Dela Cruz urologist this past week for ongoing urinary retention. He was instructed to self catheter 4 times a day, however, patient reports he had not started this. It is also reported that he was given a prescription for Keflex several days ago by his PCP P for treatment of a urinary tract infection. However, he has not started this. Patient is somewhat vague with his answers. He is difficult to get specific details. Upon history of present illness patient states she has felt weak for several days. Hospital Course This is a general summary of the patient's hospital course. For more details refer to the complete medical record. Hospital course: Impression Acute encephalopathy-POA, resolved Sepsis-sepsis criteria including tachycardia, bandemia, encephalopathy with the presence of infection Urinary tract infection-POA Urinary retention-total of 1250 ML's at time of Sanchez catheter placement Acute kidney injury-admission creatinine 1.7 Health compliance deficit Diabetes mellitus type 2; A1c 8.8 Hypertension Hyperlipidemia Hypothyroidism Depression. Bipolar affective disorder Left lower lobe pulmonary nodule on CT earlier this year Sacral decubitus ulcer Hospital course 07/26-07/27/17 Patient is admitted as an inpatient under the care of the hospitalist services. Patient did receive aggressive IV fluids while in the emergency room. A repeat venous lactate normalized Patient was given IV Levaquin for antimicrobial coverage. Blood culture and urine culture are pending. Did review old urine culture from May 2017 which was positive for Daron only. Given presence of Yeast on admission UA will initiate Diflucan. Sanchez catheter has been placed given retention. Concerned that patient is unable to self catheterize himself at home as patient appears to have some compliance issues. Continue with normal saline at 100 ML per hour for gentle hydration Nursing staff did report some loose stool this morning, GI panel was obtained found to be negative. Continue to monitor Accu-Cheks Resume home medications PT/OT consulted-recommended home with assistance and use of walker. 07/28/17 Renal function has returned to baseline. DC Sanchez and observe Karin straight cath QID to ensure technique/compliance are acceptable. Hgb decreased from 12.1 on admit to 9.5 this am - at least partly attributable to dilution effect. Check stool for occult blood. Continue Levaquin for UTI. BC shows no growth after 1 day. UC pending. WBC normal, afebrile. CXR - NAD. Mucinex PRN. DM2 with Hyperglycemia - continue Trulicity, Tresiba, and SSI. A1c was 8.8% on admission. Superficial sacral decubitus ulcer present-barrier cream initiated. 07/29/17 Karin reports feeling well today and is anxious to discharge home. He reports that he is able to self catheterize and has equipment at home. Nursing reports concerns about patient's ability to self catheter at home indicating that he is required assistance catheterizing himself consistently. Patient attributes need for help to using different catheters here than he's used at home. Parents are present and his mother confirms presence of supplies at home. Renal function has normalized following decompression of his bladder. Urine culture with low count daron-has been treated with Levaquin and Diflucan for 3 days. Will not continue antimicrobial treatment as bladder obstruction was primary cause of presentation and primary risk for infection. Blood sugars have been moderately elevated throughout hospitalization, A1c 8.8- defer to Dr. Ny. Patient was felt stable for discharge at this time-he reports he is ambulating without difficulty and denies dyspnea or nausea. Nursing confirm he is self cathetering with some assistance. The patient is alert and cooperative, respirations are nonlabored, abdomen is soft and nontender. Discharge plans reviewed with the patient and his parents. Medications unchanged from admission. Patient is asked to follow-up with Dr. Ny in one week and Dr. Dela Cruz in 1- 2 weeks for reassessment of urinary retention and to determine if patient is adequately draining his bladder. Time spent with patient: discharge greater than 30 minutes Discharge Plan - Med Rec/Dispo Referrals/Follow Up: Nirav Ny II, MD [Family Provider] - 1 Week (CALL AND MAKE APPOINTMENT WITH DR. NY TO BE SEEN IN 1 WEEK [phone]) Adonis Dela Cruz MD [Physician] - (1-2 weeks CALL AND MAKE APPOINMENT WITH DR. DELA CRUZ TO BE SEEN IN 1-2 WEEKS OFFICE NUMBER [phone]) Dipak Instructions: Urinary Retention in Men (GEN), How to Catheterize Yourself (Man) (GEN) Prescriptions: Continue Divalproex Sodium [Depakote] 500 mg PO QAM #0 Allopurinol 300 mg PO DAILY #0 Benztropine Mesylate 0.5 mg PO BID #0 Divalproex Sodium 250 mg PO HS #0 Cetirizine [Zyrtec] 10 mg PO DAILY Levothyroxine Sodium 100 mcg PO ACB Phenazopyridine HCl [Phenazopyridine HCl] 200 mg PO TID Dulaglutide [Trulicity] 1 dose SQ Q7D Carvedilol [Coreg] 12.5 mg PO BID #0 Divalproex [Depakote] 1,000 mg PO HS #0 Insulin Degludec [Tresiba Flextouch U-100] 20 unit SQ HS Paliperidone [Paliperidone ER] 6 mg PO DAILY Discontinued Vit C/E/Zn/Coppr/Lutein/Zeaxan [Preservision Areds 2 Softgel] 1 cap PO BID #0 Harvey-3 Acid Ethyl Esters 2 gm PO BID Triamterene/Hydrochlorothiazid [Triamterene-Hctz 75-50 mg Tab] 0.5 tab PO DAILY #0 Dapagliflozin/Metformin HCl [Xigduo Xr 5 mg-1,000 mg Tablet] 1 tab PO BID #0 Montelukast Sodium 10 mg PO HS #0 - Disposition 01 Discharged Home, Self-Care - Dismissal Complete Discharge Instructions are:: Complete
[2017-07-31] MEDS ORDERED: DULAGLUTIDE PO SCH (10:00)
== END 2017-07-29 15:30 | disposition home or self-care (01) | DRG 871 ==
LOC: ED 20:50 → SUATTDRO 07-27 02:03 → MED 07-27 02:03
PROVIDERS: ADMIT Internal Medicine; ATTEND Internal Medicine

== ENCOUNTER 2017-08-26 02:28 | Inpatient (IN) ==
[2017-08-26] MEDS ORDERED: SALINE FLUSH 10ml SYRINGE IVF PRN (02:36)
[2017-08-26] MEDS ORDERED: NS 1,000 ML IV ONE (02:37)
--- NOTE | 2017-08-26 02:43 | Emergency Department Report ---
General Adult HPI - General Stated complaint: fell on the floor, weak Time Seen by Provider: 08/26/17 02:33 Source: patient, family Mode of arrival: ambulatory Limitations: no limitations - History of Present Illness HPI narrative: Patient has had multiple falls recently and apparently has been growing weaker and having incontinence issues. He was seen 2 days ago in the ER, diagnosed with urinary tract infection and started on Cipro. Tonight the patient had a fall and was unable to get off the floor on his own which is unusual. Patient has had similar symptoms in the past when he was uroseptic one month ago. Patient's cousin brings the patient in [facility] for evaluation because the patient's parents, who are his primary caregivers at home, were concerned that he might be getting an infection in the blood again. Family notes that the patient's mentation is slower than usual, and that he is not tracking conversations well. - Related Data Home Medications Medication Instructions Recorded Confirmed Carvedilol [Coreg] 12.5 mg PO BID #0 07/01/10 08/23/17 Divalproex Sodium [Depakote] 500 mg PO QAM #0 07/01/10 08/23/17 Allopurinol 300 mg PO DAILY #0 12/04/15 08/23/17 Benztropine Mesylate 0.5 mg PO BID #0 12/04/15 08/23/17 Divalproex [Depakote] 1,000 mg PO HS #0 12/04/15 08/23/17 Divalproex Sodium 250 mg PO HS #0 12/02/16 08/23/17 Cetirizine [Zyrtec] 10 mg PO DAILY 06/15/17 08/23/17 Insulin Degludec [Tresiba 20 unit SQ HS 06/15/17 08/23/17 Flextouch U-100] Levothyroxine Sodium 100 mcg PO ACB 06/15/17 08/23/17 Paliperidone [Paliperidone ER] 6 mg PO DAILY 06/15/17 08/23/17 Dulaglutide [Trulicity] 1 dose SQ Q7D 07/26/17 08/23/17 Phenazopyridine HCl 200 mg PO TID 07/26/17 08/23/17 Alpha Lipoic Acid 50 mg PO DAILY 08/23/17 08/23/17 Aspirin [Adult Low Dose Aspirin EC] 81 mg PO DAILY 08/23/17 08/23/17 Benfotiamine 150 mg PO DAILY 08/23/17 08/23/17 Ultimate Pro Support 1 tab PO DAILY 08/23/17 08/23/17 Previous Rx's Medication Instructions Recorded Ciprofloxacin [Cipro] 1 tab PO BID #28 tab 08/23/17 Allergies Allergy/AdvReac Type Severity Reaction Status Date / Time Penicillins Allergy Severe ANAPHYLACTIC Verified 08/26/17 02:49 SHOCK Review of Systems All systems: reviewed and negative except as stated PFSH Patient Stated Medical History Cataracts Yes: bilateral-removed Cardiac Arrhythmia Yes: AFIB Hypertension Yes Bronchitis Yes Diabetes Mellitus Type 2 Yes Hx Urinary Tract Infection Yes Other Yes: urinary retention Sepsis Yes: UROSEPSIS Bipolar Disorder Yes Clinic Medical History Sepsis (Acute Medical) Severe sepsis due to UTI Pyelonephritis (Acute Medical) Severe sepsis (Acute Medical) Encephalopathy acute (Acute Medical) Renal insufficiency (Acute Medical) Urinary retention (Acute Medical) UTI (urinary tract infection) (Inactive Medical) Failed outpatient therapy Bipolar with schizophrenia Surgical History: Cataract extraction b/l. Sebacious cyst removed from back Family History: Family History (Last Updated 05/08/17 @ 13:21 by Kelli Phillips) Father No problems noted. - Social History Smoking status: Never smoker Substance use type: does not use Alcohol intake frequency: does not drink Current residence: Apartment/Private Home Physical Exam - Limitations Limitations: altered mental status - General General appearance: alert - Normal Exams: Head:: Normocephalic without trauma Eyes:: Pupils are PERRLA w/ EOMI, No scleral icterus, irritation, or foreign bodies noted ENMT:: No facial trauma, nasal exudates, pharyngeal erythema, or exudates are noted Neck:: Full range of motion, without adenopathy, JVD, bruits or thyromegaly Chest/Respirations:: Clear all [place], with good airflow, and symmetry bilaterally Cardiovascular:: Regular rate and rhythm, without murmur or gallop, Pulses 2+ all extremities, capillary refill, <2 seconds all extremities Abdomen:: Bowel sounds positive, soft, non-tender, non-distended, no hepatosplenomegaly, masses or bruits noted Genitourinary:: Penis without lesions, testicles normal size, and orientation, without tenderness Lymphatic:: No lymphadenopathy, or lymphedema noted Musculoskeletal:: No tenderness, or deformity noted, good range of motion, all extremities Neurological:: Patient is alert, and oriented, cranial nerves, motor/sensory/ cerebellar, exams w/o gross deficits, to observation - Skin Skin exam: Present: other (sacral redness and tenderness, patient sits in a recliner all day, and this appears to be causing a grade 1 skin breakdown.) - Neurological Exam Neurological exam: Present: alert, oriented X3, CN II-XII intact, motor sensory deficit, reflexes normal. Absent: normal gait - Psychiatric Psychiatric exam: Present: other (patient is confused, has a distant gaze, and appears flat affect) Course Vital Signs Temperature 98.7 F 08/26/17 02:32 Pulse Rate 101 H 08/26/17 02:32 Respiratory Rate 20 08/26/17 02:32 Blood Pressure 116/73 08/26/17 02:32 Pulse Oximetry 93 08/26/17 02:32 Temperature 98.7 F 08/26/17 02:32 Pulse Rate 86 08/26/17 04:00 Respiratory Rate 20 08/26/17 02:32 Blood Pressure 115/71 08/26/17 04:00 Pulse Oximetry 94 08/26/17 04:00 Medical Decision Making - [facility] Narrative Medical decision making narrative: Patient given 1 L normal saline IV fluid bolus for mild tachycardia with heart rate of 100 at rest CBC shows no significant white blood cell elevation, no left shift CMP is essentially normal with significant abnormality of elevated creatinine 1.7, consistent with the patient's dehydration/acute encephalopathy/relents efficiency of the past. Urine shows significant abnormalities with 3+ protein, 2+ occult blood, positive nitrites, 2+ leukocyte esterase, white blood cells too numerous to count, 2+ visible urinary bacteria, and positive budding yeast with pseudohyphae We will start the patient on Rocephin, Diflucan, and admit for IV fluids for acute encephalopathy with UTI Discussed with Dr. Toro - Lab Data Result diagrams: 08/26/17 03:02 08/26/17 03:02 Lab Results 08/26/17 08/26/17 08/26/17 Range/Units 03:02 03:02 03:02 WBC 8.4 (4.5-11.0) T/MM3 RBC 3.32 L (4.50-5.90) M/MM3 Hgb 9.7 L (13.5-17.5) GM/DL Hct 31.6 L (41-53) % MCV 95.2 (80-100) UM3 MCH 29.2 (26-34) UUG MCHC 30.7 L (31-37) GM/DL RDW Std Deviation 53.5 H (36.9-50.2) FL Plt Count 166 (130-400) T/MM3 MPV 8.3 L (9.4-12.4) UM3 Immature Gran % (Auto) 0.6 H (0.0-0.5) % Neut % (Auto) 60.7 (33-66) % Lymph % (Auto) 16.8 L (23-45) % [place] % (Auto) 20.4 H (0-9.0) % Eos % (Auto) 1.3 (0-4) % Baso % (Auto) 0.2 (0-2) % Neut # (Auto) 5.1 (1.8-7.7) T/MM3 Lymph # (Auto) 1.4 (1-4.8) T/MM3 [place] # (Auto) 1.7 H (0-0.8) T/MM3 Eos # (Auto) 0.1 (0-0.5) T/MM3 Baso # (Auto) 0.0 (0-0.2) T/MM3 Abs Immat Gran (auto) 0.05 H (0.00-0.03) T/MM3 Turbidity < 20 (0-20) Sodium 139 (134-144) MEQ/L Potassium 4.5 (3.6-5) MEQ/L Chloride 103 (98-107) MEQ/L Carbon Dioxide 27 (22-30) MEQ/L Anion Gap 9 (5-15) MEQ/L BUN 31.0 H (9-20) MG/DL Creatinine 1.7 H (0.8-1.5) MG/DL GFR Calculation 42 BUN/Creatinine Ratio 18 (6-26) RATIO Glucose 251 H (75-110) MG/DL Calculated Osmolality 283 H (261-280) MOSM/KG Calcium 9.7 (8.4-10.2) MG/DL Total Bilirubin 0.70 (0.20-1.30) MG/DL Conjugated Bilirubin 0.00 (0.00-0.30) MG/DL Unconjugated Bilirubin 0.30 (0.00-1.1) MG/DL Icterus Index < 2 (0-7) AST 25 (17-59) U/L ALT 24 (21-72) U/L Alkaline Phosphatase 97 (38-126) U/L Total Protein 8.3 H (6.3-8.2) G/DL Albumin 3.9 (3.5-5.0) G/DL Globulin 4.4 H (2.4-3.6) G/DL Albumin/Globulin Ratio 0.9 L (1.1-2.2) RATIO Plasma Lactate 1.4 (0.6-2.2) MMOL/L Procalcitonin 0.30 NG/ML Specimen Hemolysis 20 (0-25) Ur Collection Type Urine Color (YELLOW) Urine Clarity Urine pH (5.0-8.0) Ur Specific [place] (1.015-1.025) Urine Protein (NEGATIVE) Urine Glucose (UA) (NEGATIVE) Urine Ketones (NEGATIVE) Urine Occult Blood (NEGATIVE) Urine Nitrate (NEGATIVE) Urine Bilirubin (NEGATIVE) Urine Urobilinogen (NORMAL) EU/DL Ur Leukocyte Esterase (NEGATIVE) Urine RBC (0-3) /HPF Urine WBC (0-5) /HPF Urine Bacteria (NEGATIVE) Urine Yeast (NEGATIVE) Ur Culture Indicated? 08/26/17 Range/Units 03:38 WBC (4.5-11.0) T/MM3 RBC (4.50-5.90) M/MM3 Hgb (13.5-17.5) GM/DL Hct (41-53) % MCV (80-100) UM3 MCH (26-34) UUG MCHC (31-37) GM/DL RDW Std Deviation (36.9-50.2) FL Plt Count (130-400) T/MM3 MPV (9.4-12.4) UM3 Immature Gran % (Auto) (0.0-0.5) % Neut % (Auto) (33-66) % Lymph % (Auto) (23-45) % [place] % (Auto) (0-9.0) % Eos % (Auto) (0-4) % Baso % (Auto) (0-2) % Neut # (Auto) (1.8-7.7) T/MM3 Lymph # (Auto) (1-4.8) T/MM3 [place] # (Auto) (0-0.8) T/MM3 Eos # (Auto) (0-0.5) T/MM3 Baso # (Auto) (0-0.2) T/MM3 Abs Immat Gran (auto) (0.00-0.03) T/MM3 Turbidity (0-20) Sodium (134-144) MEQ/L Potassium (3.6-5) MEQ/L Chloride (98-107) MEQ/L Carbon Dioxide (22-30) MEQ/L Anion Gap (5-15) MEQ/L BUN (9-20) MG/DL Creatinine (0.8-1.5) MG/DL GFR Calculation BUN/Creatinine Ratio (6-26) RATIO Glucose (75-110) MG/DL Calculated Osmolality (261-280) MOSM/KG Calcium (8.4-10.2) MG/DL Total Bilirubin (0.20-1.30) MG/DL Conjugated Bilirubin (0.00-0.30) MG/DL Unconjugated Bilirubin (0.00-1.1) MG/DL Icterus Index (0-7) AST (17-59) U/L ALT (21-72) U/L Alkaline Phosphatase (38-126) U/L Total Protein (6.3-8.2) G/DL Albumin (3.5-5.0) G/DL Globulin (2.4-3.6) G/DL Albumin/Globulin Ratio (1.1-2.2) RATIO Plasma Lactate (0.6-2.2) MMOL/L Procalcitonin NG/ML Specimen Hemolysis (0-25) Ur Collection Type Urine, clean catch Urine Color Yellow (YELLOW) Urine Clarity Cloudy Urine pH 6.0 (5.0-8.0) Ur Specific [place] 1.020 (1.015-1.025) Urine Protein 3+ A (NEGATIVE) Urine Glucose (UA) 1+ A (NEGATIVE) Urine Ketones Negative (NEGATIVE) Urine Occult Blood 2+ A (NEGATIVE) Urine Nitrate Positive A (NEGATIVE) Urine Bilirubin Negative (NEGATIVE) Urine Urobilinogen 1.0 (NORMAL) EU/DL Ur Leukocyte Esterase 2+ A (NEGATIVE) Urine RBC None seen (0-3) /HPF Urine WBC Tntc H (0-5) /HPF Urine Bacteria 2+ H (NEGATIVE) Urine Yeast Budding+pseudohyphae A (NEGATIVE) Ur Culture Indicated? Cult reflexed &setup Disposition Clinical Impression: Acute encephalopathy, Acute renal insufficiency UTI (urinary tract infection) Qualifiers: Urinary tract infection type: acute cystitis Hematuria presence: without hematuria Qualified Code(s): N30.00 - Acute cystitis without hematuria Disposition: 02 To [facility] Acute Care Condition: Stable Prescriptions: No Action Divalproex Sodium [Depakote] 500 mg PO QAM #0 Allopurinol 300 mg PO DAILY #0 Benztropine Mesylate 0.5 mg PO BID #0 Divalproex Sodium 250 mg PO HS #0 Cetirizine [Zyrtec] 10 mg PO DAILY Levothyroxine Sodium 100 mcg PO ACB Phenazopyridine HCl 200 mg PO TID Dulaglutide [Trulicity] 1 dose SQ Q7D Ultimate Pro Support 1 tab PO DAILY Alpha Lipoic Acid 50 mg PO DAILY Benfotiamine 150 mg PO DAILY Carvedilol [Coreg] 12.5 mg PO BID #0 Divalproex [Depakote] 1,000 mg PO HS #0 Insulin Degludec [Tresiba Flextouch U-100] 20 unit SQ HS Paliperidone [Paliperidone ER] 6 mg PO DAILY Aspirin [Adult Low Dose Aspirin EC] 81 mg PO DAILY Ciprofloxacin [Cipro] 1 tab PO BID #28 tab Referrals: Nirav Noland II, MD [Family Provider] - - Seen By: physician
[2017-08-26] MEDS ORDERED: FLUCONAZOLE 150 MG TABLET PO ONE (04:24)
[2017-08-26] MEDS ORDERED: CEFTRIAXONE (ER USE ONLY) 1 GM in NS 100 ML IV ONE (04:24)
[2017-08-26] MEDS ORDERED: ONDANSETRON 4 MG/2 ML INJECTION IVP PRN (05:25)
[2017-08-26] MEDS ORDERED: ACETAMINOPHEN 325 MG TABLET PO PRN (05:25)
[2017-08-26] MEDS: NS 1,000 ML IV SCH ×2 (05:31→14:57)
--- NOTE | 2017-08-26 05:57 | History & Physical Report ---
History of Present Illness Date: 08/26/17 Chief complaint: Altered mental status HPI: 57yo M with MR presented to the ED with reports of multiple falls, weakness and slow mentation at home. He was seen 2 days ago in the ER, diagnosed with urinary tract infection and started on Cipro. Tonight the patient had a fall and was unable to get off the floor on his own which is unusual. Patient has had similar symptoms in the past when he was uroseptic one month ago. Patient was found to have a UTI in the ED. He was admitted for failure of outpatient treatment. Review of Systems ROS unobtainable: due to mental status [facility] Patient Stated Medical History Cataracts Yes: bilateral-removed Cardiac Arrhythmia Yes: AFIB Hypertension Yes Bronchitis Yes Diabetes Mellitus Type 2 Yes Hx Urinary Tract Infection Yes Other Yes: urinary retention Sepsis Yes: UROSEPSIS Bipolar Disorder Yes Clinic Medical History Sepsis (Acute Medical) Severe sepsis due to UTI Pyelonephritis (Acute Medical) Severe sepsis (Acute Medical) Encephalopathy acute (Acute Medical) Renal insufficiency (Acute Medical) Urinary retention (Acute Medical) Acute renal insufficiency (Acute Medical) UTI (urinary tract infection) (Acute Medical) UTI (urinary tract infection) (Inactive Medical) Failed outpatient therapy Surgical History: Cataract extraction b/l. Sebacious cyst removed from back Family History: Family History (Last Updated 05/08/17 @ 13:21 by Kelli Phillips) Father No problems noted. - Social History Smoking status: Never smoker Medications Home Medications Medication Instructions Recorded Confirmed Type Carvedilol [Coreg] 12.5 mg PO BID #0 07/01/10 08/26/17 History Divalproex Sodium [Depakote] 500 mg PO QAM #0 07/01/10 08/26/17 History Allopurinol 300 mg PO DAILY #0 12/04/15 08/26/17 History Benztropine Mesylate 0.5 mg PO BID #0 12/04/15 08/26/17 History Divalproex [Depakote] 1,000 mg PO HS #0 12/04/15 08/26/17 History Divalproex Sodium 250 mg PO HS #0 12/02/16 08/26/17 History Cetirizine [Zyrtec] 10 mg PO DAILY 06/15/17 08/26/17 History Insulin Degludec [Tresiba 20 unit SQ HS 06/15/17 08/26/17 History Flextouch U-100] Levothyroxine Sodium 100 mcg PO ACB 06/15/17 08/26/17 History Paliperidone [Paliperidone ER] 6 mg PO DAILY 06/15/17 08/26/17 History Dulaglutide [Trulicity] 1 dose SQ Q7D 07/26/17 08/26/17 History Phenazopyridine HCl 200 mg PO TID 07/26/17 08/26/17 History Alpha Lipoic Acid 50 mg PO DAILY 08/23/17 08/26/17 History Aspirin [Adult Low Dose Aspirin EC] 81 mg PO DAILY 08/23/17 08/26/17 History Benfotiamine 150 mg PO DAILY 08/23/17 08/26/17 History Ultimate Pro Support 1 tab PO DAILY 08/23/17 08/26/17 History Allergies Allergy/AdvReac Type Severity Reaction Status Date / Time Penicillins Allergy Severe ANAPHYLACTIC Verified 08/26/17 05:43 SHOCK Exam Vital Signs: Temperature 98.5 F 08/26/17 05:25 Pulse Rate 86 08/26/17 05:25 Respiratory Rate 16 08/26/17 05:25 Blood Pressure 121/65 08/26/17 05:25 Pulse Oximetry 91 08/26/17 05:25 Height/Weight/BMI: Height 1.71 m Weight 88.9 kg Body Mass Index 30.2 - Constitutional Present: no acute distress, morbidly obese - Routine Respiratory Exam Present: CTA bilaterally. Absent: wheezes - Routine Cardiovascular Exam Present: RRR. Absent: murmur - Routine Abdominal Exam Present: soft, normoactive bowel sounds, non distended. Absent: tenderness - Routine Extremities Exam Present: normal capillary refill - Routine Psychiatric Exam Comments: slow mentation Results - Labs CBC & Chem 7: 08/26/17 03:02 08/26/17 03:02 Assessment and Plan (1) Acute encephalopathy Current visit: Yes Status: Acute (2) Acute renal insufficiency Current visit: Yes Status: Acute (3) UTI (urinary tract infection) Current visit: Yes Status: Acute Assessment and Plan: Patient started on IV ceftriaxone and Po fluconazole in the ED. Blood CX and urine CX pending. Patient does not have a elevated WBC count at this time. Start IVF of 100cc/hr. Encephalopathy thought caused by UTI, will monitor for resolution. DVT Prophylaxis: SCD's Resuscitation Status: Full Code Hospital Course Summary Disclaimer: The visit summary below is not to be considered part of the above Progress Note.
--- NOTE | 2017-08-26 09:05 | XRay Report ---
Indication: cough, possible sepsis PROCEDURE: XR chest 1V: Encounter: Initial Comparison: July 28, 2017 FINDINGS: The lungs are clear. There is no abnormal airspace opacity, pleural effusion or pneumothorax identified. The heart size, pulmonary vasculature and mediastinum are within normal limits. No significant skeletal abnormality is seen. IMPRESSION: No acute cardiopulmonary abnormality. .
[2017-08-26] MEDS ORDERED: CARVEDILOL 12.5 MG TABLET PO SCH (21:00)
[2017-08-26] MEDS ORDERED: INSULIN GLARGINE 100unit/ml INJECTION SQ SCH (21:00)
[2017-08-26] MEDS: DIVALPROEX 250 MG TABLET PO SCH (21:53)
[2017-08-26] MEDS: BENZTROPINE 1 MG TABLET PO SCH (21:54)
[2017-08-27] MEDS: NS 1,000 ML IV SCH ×3 (01:06→22:09)
[2017-08-27] MEDS ORDERED: CEFTRIAXONE 1 G in NS 100 ML IV SCH (06:15)
[2017-08-27] MEDS ORDERED: FALL RISK - PHARMACY CONSULT XX ONE (06:37)
[2017-08-27] MEDS: LEVOTHYROXINE 100 MCG TABLET PO SCH (07:01)
[2017-08-27] MEDS: ALLOPURINOL 300 MG TABLET PO SCH (08:42)
[2017-08-27] MEDS: CARVEDILOL 12.5 MG TABLET PO SCH ×2 (08:42→18:10)
[2017-08-27] MEDS: DIVALPROEX 500 MG TABLET PO SCH (08:42)
[2017-08-27] MEDS: ASPIRIN *EC* 81 MG TABLET PO SCH (08:42)
[2017-08-27] MEDS: FLUCONAZOLE 150 MG TABLET PO SCH (08:43)
[2017-08-27] MEDS: BENZTROPINE 1 MG TABLET PO SCH ×2 (08:43→20:51)
[2017-08-27] MEDS: PALIPERIDONE ER 1.5mg TAB PO SCH (08:46)
[2017-08-27] MEDS ORDERED: PALIPERIDONE 6 MG PO SCH (09:00)
--- NOTE | 2017-08-27 14:00 | Progress Note ---
<Sarah Bower - Last Filed: 08/27/17 14:23> - Date 08/27/17 Subjective: Patient is seen today lying in bed. He reports he is ready to go home. He has no headache, chest pain, shortness of breath, nausea or vomiting. He has no burning with urination. He feels that he should not be in the hospital. He states he is here because his mother insisted he come. He does not feel his falls are problem and states the reason he felt the other night was because he ran into the recliner. He reports he straight caths at home, although he does not believe he needs to do it 4 times a day. Based on nurses notes, it appears the patient has been unable to self catheter himself here. He states that the catheters they use here are more difficult than the ones he uses at home. Objective Vital signs: Temperature 95.5 F L 08/27/17 07:00 Pulse Rate 77 08/27/17 07:00 Respiratory Rate 12 08/27/17 07:00 Blood Pressure 116/71 08/27/17 07:00 Pulse Oximetry 96 08/27/17 07:00 Height/Weight/BMI: Height 1.71 m Weight 91.1 kg Body Mass Index 30.2 - Constitutional Present: no acute distress, well nourished, well developed - Routine HEENT Exam Head: Present: normocephalic - Routine Respiratory Exam Present: CTA bilaterally. Absent: wheezes - Routine Cardiovascular Exam Present: RRR. Absent: murmur - Routine Abdominal Exam Present: soft, normoactive bowel sounds, non distended. Absent: tenderness - Routine Extremities Exam Present: no edema, normal capillary refill - Routine Skin Exam Present: dry, warm - Routine Neurological Exam Present: alert, moving all extremities, normal speech, tremors (bilateral upper extremities). Absent: altered mental status - Routine Lymphatic Exam Lymphatic: Absent: adenopathy - Routine Psychiatric Exam Present: normal affect, cooperative Results - Labs CBC & Chem 7: 08/27/17 05:04 08/27/17 05:05 Microbiology Results: Microbiology 08/26/17 06:38 Peripheral/Iv Start Blood Culture - Preliminary No Growth After 1 Day 08/26/17 06:37 Peripheral/Iv Start Blood Culture - Preliminary No Growth After 1 Day Assessment and Plan (1) Acute renal insufficiency Current visit: Yes Status: Acute (2) UTI (urinary tract infection) Current visit: Yes Status: Acute (3) Acute encephalopathy Current visit: Yes Status: Acute Assessment and Plan: A/P: Weakness/ambulatory dysfunction with falls Encephalopathy Urinary retention Pyuria Acute kidney injury Cough Normocytic anemia, progressive Diabetes mellitus, A1c 8.8 on 07/26/17 Hypertension Pulmonary nodules/right retroperitoneal adenopathy by CT Hgb continues to fall. Hemoccult x 1 is neg. Repeat again with next BM. Iron studies/B12/SPEP are pending. It appears the ceftriaxone was restarted this a.m. by telemed doctor. I can find no documentation as to why this was restarted. Nursing staff denies any knowledge as to why this was restarted as well. This had been discontinued yesterday by Dr. Robertson. Patient had a 100.5 temp last evening and there is preliminary growth on the urine culture. Dr. Robertson to determine whether or not she wants further antibiotics. Hospital Course Summary Disclaimer: The visit summary below is not to be considered part of the above Progress Note. Hospital Course: A/P: Weakness/ambulatory dysfunction with falls Encephalopathy Urinary retention Pyuria Acute kidney injury Cough Normocytic anemia, progressive Diabetes mellitus, A1c 8.811/06/03 Hypertension Pulmonary nodules/right retroperitoneal adenopathy by CT 08/26/17-hospital admission Continue IV fluids, antibiotics discontinued as there is no clear evidence of UTI based on culture obtained 3 days ago or current laboratory data. Cipro may have contributed to increased confusion. PT/OT will be consulted. Brief history from mother suggest patient has been utilizing self-catheterization at home on at least a part-time basis. Speech therapy evaluation due to reported cough with clear chest x-ray. Respiratory viral panel. Hemoglobin 14.1 in November of this year with progressive decline since that time. No prior workup while hospitalized. Check Hemoccults, iron studies/B12/SPEP. May require repeat imaging of abdomen due to prior reports of retroperitoneal adenopathy. Resume home medications for diabetes, BAD , blood pressure, and hypothyroidism. Old records reviewed, mother provide supplemental history-additional family history will be needed when family is present 08/27/17 Hgb continues to fall. Hemoccult x 1 is neg. Repeat again with next BM. Iron studies/B12/SPEP are pending. It appears the ceftriaxone was restarted this a.m. by telemed doctor. I can find no documentation as to why this was restarted. Nursing staff denies any knowledge as to why this was restarted as well. This had been discontinued yesterday by Dr. Robertson. Patient had a 100.5 temp last evening and there is preliminary growth on the urine culture. Dr. Robertson to determine whether or not she wants further antibiotics. <Oly Robertson - Last Filed: 08/27/17 22:26> - Date 08/27/17 Objective Vital signs: Results - Labs CBC & Chem 7: 08/27/17 05:04 08/27/17 05:05 Assessment and Plan (1) Acute encephalopathy Current visit: Yes Status: Acute (2) Acute renal insufficiency Current visit: Yes Status: Acute (3) UTI (urinary tract infection) Current visit: Yes Status: Ruled-out Assessment and Plan: I have independently evaluated and examined this patient. I reviewed the chart, the patient's history, and the OPERATIONS ADVISOR/PA's documented findings as above. We discussed and formulated the assessment and plan as above with additions as below: Karin was seen with his father at the bedside. He reports that he feels "so-so "; he walked with physical therapy earlier and reports that he's had several loose stools. Stool was checked for C. difficile overnight and was negative. Stool sample was also negative for occult blood. Patient has refused straight catheterizations all day because he doesn't believe they're needed; nursing has been checking post void residuals by bladder scan with readings between 200 and 300 although body habitus makes accurate assessment difficult. Nurses who have assisted Karin with self catheterizations report they don't believe the patient is capable of catheterizing himself. NAD, alert but in different to health concerns Respirations nonlabored, breath sounds clear Abdomen soft and nontender, active bowel sounds Night nursing will attempt to straight catheter for accurate post void residual. Will discuss further with urology tomorrow as I think it's unlikely patient will be compliant with catheterization regimen at home and is told me he does not want to have an indwelling catheter as well. Anemia workup pending; UA in a.m. to reassess protein. May require repeat imaging of the chest/abdomen due to previously described abnormalities in the retroperitoneum and lungs. PT reports adequate power/independent function. Resuscitation Status: Full Code Hospital Course Summary Disclaimer: The visit summary below is not to be considered part of the above Progress Note.
[2017-08-27 16:23] VITALS: BMI 30.9
[2017-08-27] MEDS: DIVALPROEX 250 MG TABLET PO SCH (20:51)
[2017-08-27] MEDS ORDERED: INSULIN ASPART 100unit/ml INJECTION SQ PRN (20:53)
[2017-08-27] MEDS ORDERED: INSULIN GLARGINE 100unit/ml INJECTION SQ SCH (21:00)
[2017-08-28] MEDS: LEVOTHYROXINE 100 MCG TABLET PO SCH (05:31)
[2017-08-28] MEDS: NS 1,000 ML IV SCH (08:21)
[2017-08-28] MEDS: ASPIRIN *EC* 81 MG TABLET PO SCH (08:23)
[2017-08-28] MEDS: FLUCONAZOLE 150 MG TABLET PO SCH (08:23)
[2017-08-28] MEDS: DIVALPROEX 500 MG TABLET PO SCH (08:23)
[2017-08-28] MEDS: BENZTROPINE 1 MG TABLET PO SCH (08:23)
[2017-08-28] MEDS: CARVEDILOL 12.5 MG TABLET PO SCH ×2 (08:24→17:29)
[2017-08-28] MEDS: ALLOPURINOL 300 MG TABLET PO SCH (08:24)
[2017-08-28] MEDS: PALIPERIDONE ER 1.5mg TAB PO SCH (08:24)
[2017-08-28] MEDS ORDERED: DULAGLUTIDE PO SCH (11:00)
[2017-08-28] MEDS ORDERED: SALINE FLUSH 10ml SYRINGE ONE (15:02)
[2017-08-28] MEDS ORDERED: NS 100 ML ONE (15:02)
[2017-08-28] MEDS ORDERED: IOHEXOL 300mg/ml 100ml INJECTION ONE (15:02)
--- NOTE | 2017-08-28 16:49 | CT Scan Report ---
EXAM: CT abdomen pelvis w con DATE: 08/28/2017 12:24 PM ENCOUNTER: Initial INDICATION: weight loss, retroperitoneal adenopathy prior study COMPARISON: Noncontrast abdominal CT 06/15/2017, contrast-enhanced abdominal CT 12/02/2016 TECHNIQUE: CT of the abdomen and pelvis with IV contrast. The patient received 100 mL of Omnipaque 300 without complication. Coronal and sagittal reformatted images were performed. The current CT scan was performed using radiation dose-reduction techniques. FINDINGS: Lower Chest: The visualized portions of the lower lungs are well aerated. No focal airspace disease. The heart is normal in size without pericardial effusion. Abdomen: No intraperitoneal free air. No intra-abdominal free fluid or fluid collections. Unchanged enlarged right retroperitoneal lymph nodes. Liver: The liver enhances homogeneously without focal masses. Gallbladder and biliary: The gallbladder appears normal. No biliary ductal dilatation. Spleen: The spleen appears normal. Pancreas: The pancreas demonstrates homogeneous attenuation. Adrenal glands: The adrenal glands are normal in size and attenuation. Kidneys/ureters: The right kidney is again noted to be asymmetrically enlarged relative to the left, with redemonstration of asymmetric right perinephric stranding. The kidneys both demonstrate heterogeneous enhancement with scattered small cysts noted. The right renal pelvis remains dilated with the wall of the pelvis and right ureter appearing more prominent and enhancing than on the previous examination. No obstructing stones seen. GI tract: The stomach appears grossly normal. Small bowel loops are normal in caliber without evidence of obstruction. Colonic diverticulosis without associated inflammatory changes to suggest acute diverticulitis. The appendix is normal. Vascular structures: The aorta is normal in course and caliber with scattered atherosclerotic calcifications noted. The mesenteric arterial and venous structures appear patent. Pelvis: No pelvic free fluid. No pelvic lymphadenopathy. Bladder: Redemonstration of prominence or compression thickening of the bladder wall. Genital system: The prostate and seminal vesicles appear grossly normal. Skeletal structures and soft tissues: The visualized skeletal structures are grossly normal. IMPRESSION: 1. Redemonstration of asymmetric enlargement of the right kidney relative to the left with right perinephric stranding and heterogeneous attenuation/enhancement of the kidneys which could be seen in the setting of pyelonephritis. The right renal pelvis and ureter remain dilated relative to the left without discrete obstructing stone or mass, with findings potentially representing ascending urinary tract infection. The bladder wall again appears diffusely thickened which could be seen in the setting of cystitis or chronic outlet obstruction. Neoplastic disease remains a less likely differential consideration, however difficult to exclude. 2. Unchanged enlarged right retroperitoneal lymph nodes. 3. Colonic diverticulosis without imaging evidence of acute diverticulitis. .
[2017-08-28 17:27] VITALS: BP 100/69; PULSE 77; RESP 16; TEMP 96.8; O2SAT 93
--- NOTE | 2017-08-28 20:07 | Discharge Summary ---
Discharge Information Date of admission: 08/26/17 04:57 Anticipated date of discharge: 08/28/17 Attending Physician: Oly Robertson MD Primary care physician: Nirav Noland II, MD - Discharge Diagnosis (1) Acute encephalopathy Status: Acute (2) Acute renal insufficiency Status: Resolved Weakness/ambulatory dysfunction with falls Encephalopathy Urinary retention UTI-ruled out Pyuria Acute kidney injury Cough Normocytic anemia, progressive Diabetes mellitus, A1c 8.811/06/03 Hypertension Pulmonary nodules/right retroperitoneal adenopathy by CT - Laboratory Labs: On admission white count 8.4, hemoglobin 9.7, differential unremarkable. Creatinine 1.7 with BUN 31, electrolytes unremarkable. Liver enzymes normal with total protein 8.3, albumin 3.9, and globulins modestly elevated at 4.4. Lactic acid 1.4, procalcitonin 0.3 Urinalysis with TNTC WBCs, +3 protein, +1 glucose, +3 occult blood, positive nitrite, +2 bacteria, and budding yeast and pseudohyphae Occult blood negative 2 Respiratory viral panel negative; C. difficile toxin negative 08/28/17 04:09 08/28/17 04:09 Iron studies, B-12, serum protein electrophoresis pending at discharge - Microbiology Microbiology 08/26/17 06:38 Peripheral/Iv Start Blood Culture - Preliminary No Growth After 2 Days 08/26/17 06:37 Peripheral/Iv Start Blood Culture - Preliminary No Growth After 2 Days - Radiology Radiology: Chest x-ray on admission-NAD CT of the abdomen and pelvis with contrast on 08/28/17: Lower Chest: The visualized portions of the lower lungs are well aerated. No focal airspace disease. The heart is normal in size without pericardial effusion. Abdomen: No intraperitoneal free air. No intra-abdominal free fluid or fluid collections. Unchanged enlarged right retroperitoneal lymph nodes. Liver: The liver enhances homogeneously without focal masses. Gallbladder and biliary: The gallbladder appears normal. No biliary ductal dilatation. Spleen: The spleen appears normal. Pancreas: The pancreas demonstrates homogeneous attenuation. Adrenal glands: The adrenal glands are normal in size and attenuation. Kidneys/ureters: The right kidney is again noted to be asymmetrically enlarged relative to the left, with redemonstration of asymmetric right perinephric stranding. The kidneys both demonstrate heterogeneous enhancement with scattered small cysts noted. The right renal pelvis remains dilated with the wall of the pelvis and right ureter appearing more prominent and enhancing than on the previous examination. No obstructing stones seen. GI tract: The stomach appears grossly normal. Small bowel loops are normal in caliber without evidence of obstruction. Colonic diverticulosis without associated inflammatory changes to suggest acute diverticulitis. The appendix is normal. Vascular structures: The aorta is normal in course and caliber with scattered atherosclerotic calcifications noted. The mesenteric arterial and venous structures appear patent. Pelvis: No pelvic free fluid. No pelvic lymphadenopathy. Bladder: Redemonstration of prominence or compression thickening of the bladder wall. Genital system: The prostate and seminal vesicles appear grossly normal. Skeletal structures and soft tissues: The visualized skeletal structures are grossly normal. IMPRESSION: 1. Redemonstration of asymmetric enlargement of the right kidney relative to the left with right perinephric stranding and heterogeneous attenuation/enhancement of the kidneys which could be seen in the setting of pyelonephritis. The right renal pelvis and ureter remain dilated relative to the left without discrete obstructing stone or mass, with findings potentially representing ascending urinary tract infection. The bladder wall again appears diffusely thickened which could be seen in the setting of cystitis or chronic outlet obstruction. Neoplastic disease remains a less likely differential consideration, however difficult to exclude. 2. Unchanged enlarged right retroperitoneal lymph nodes. 3. Colonic diverticulosis without imaging evidence of acute diverticulitis. History of Present Illness HPI: 57yo M with presented to the ED with reports of multiple falls, weakness and slow mentation at home. He was seen 2 days ago in the ER, diagnosed with urinary tract infection and started on Cipro. Tonight the patient had a fall and was unable to get off the floor on his own which is unusual. Patient has had similar symptoms in the past when he was uroseptic one month ago. Patient was found to have pyuria in the ED. He was admitted for failure of outpatient treatment. Hospital Course This is a general summary of the patient's hospital course. For more details refer to the complete medical record. Hospital course: Impression: Weakness/ambulatory dysfunction with falls Encephalopathy, resolved Urinary retention, chronic UTI-ruled out Pyuria Acute kidney injury, POA-resolved Cough Normocytic anemia, progressive Weight loss, progressive Diabetes mellitus, A1c 8.811/9/17 Hypertension Pulmonary nodules/right retroperitoneal adenopathy by CT Hospital course: Karin was hospitalized and initially treated with ceftriaxone IV and oral fluconazole based on UA findings. Urine culture obtained in the emergency room 2 -3 days prior to hospitalization was negative however and preliminary urine culture from admission was negative for bacterial growth and had only low colony count yeast. Ceftriaxone was discontinued after 2 days and the patient received 2 doses of oral Diflucan but neither was continued thereafter. The patient was at his normal level of responsiveness when seen on the morning of . It was unclear if Cipro had contributed to the confusion described on admission or if mild dehydration/acute kidney injury present on arrival contributed but the patient remained responsive with ability to move around independently throughout the rest of the hospitalization. He was evaluated by physical therapy who cleared him for discharge home. Review of patient's recent hospitalizations identified 2 primary changes: the patient has developed progressive anemia since November of this year with hemoglobin dropping from 14.1 9 mo ago to current values. The second finding that stands out on review of the charts is of significant weight loss over the past year (approximately 13 kg since November 2016) without explanation or attempt to do so. He has had a number of abnormalities described on CTs over the past year but all seem nonspecific. CT of the abdomen/pelvic was obtained due to reported retroperitoneal adenopathy previously but this appears to be a nonspecific finding on current report. The patient has significant proteinuria and gamma globulins are elevated; proteinuria may be result of diabetes but in conjunction with anemia, serum protein electrophoresis has been obtained to evaluate possibility of a monoclonal disorder. Iron studies are pending at discharge as is B-12. The patient had low-grade night fevers without sweats during the hospitalization (100.5 one night, 100.1 the next) also raising question of some underlying disease process.Patient is referred back to Dr. Noland for further evaluation when results are available. Hemoccult 2 were negative for occult blood loss. Karin acknowledged that he's been noncompliant with prescribed regimen of self catheterizations due to known urinary retention. He was resistant to straight catheterizations during the hospitalization and had post void residuals demonstrated ranging between 200 and 500 mL on multiple occasions. Bladder wall is significantly thickened and there is some evidence of right hydronephrosis on CT scan-need to utilize self catheterizations to empty his bladder was reiterated prior to discharge for follow up with Dr. Kauffman to discuss alternatives if he is unable to comply with self catheterization. On 08/28 the patient denied dyspnea or nausea. He reported that his butt hurts from sitting in a hospital chair and that he's had no fevers or lightheadedness. He was noncommittal regarding his appetite when asked about his mother's report that he's not eating well at home. Patient is ambulating without assistance. On examination the patient was alert, there is no cervical, supraclavicular, or axillary adenopathy. Respirations are nonlabored and breath sounds are clear There is no costovertebral angle tenderness and abdomen is benign. Results of CT were discussed with the patient and his father and both were anxious to discharge home today. Subsequently discharge arrangements have been coordinated and he is asked to follow up with Dr. Noland in the near future to readdress results of anemia workup and to determine if further workup should be pursued regarding weight loss. Need to be compliant with straight catheterizations was discussed as described above. Time spent with patient: discharge greater than 30 minutes Discharge Plan - Med Rec/Dispo iDpak Instructions: Urinary Retention in Men (GEN), Encephalopathy (GEN) Prescriptions: Continue Divalproex Sodium [Depakote] 500 mg PO QAM #0 Allopurinol 300 mg PO DAILY #0 Benztropine Mesylate 0.5 mg PO BID #0 Divalproex Sodium 250 mg PO HS #0 Cetirizine [Zyrtec] 10 mg PO DAILY Levothyroxine Sodium 100 mcg PO ACB Phenazopyridine HCl 200 mg PO TID Dulaglutide [Trulicity] 1 dose SQ Q7D Ultimate Pro Support 1 tab PO DAILY Alpha Lipoic Acid 50 mg PO DAILY Benfotiamine 150 mg PO DAILY Carvedilol [Coreg] 12.5 mg PO BID #0 Divalproex [Depakote] 1,000 mg PO HS #0 Insulin Degludec [Tresiba Flextouch U-100] 20 unit SQ HS Paliperidone [Paliperidone ER] 6 mg PO DAILY Aspirin [Adult Low Dose Aspirin EC] 81 mg PO DAILY Discontinued Ciprofloxacin [Cipro] 1 tab PO BID #28 tab - Disposition 01 Discharged Home, Self-Care
== END 2017-08-28 19:05 | disposition home or self-care (01) | DRG 71 ==
LOC: ED 02:28 → SUATTDRO 04:57 → MED 04:57
PROVIDERS: ADMIT Internal Medicine; ATTEND Internal Medicine

== ENCOUNTER 2017-10-16 13:46 | Inpatient (IN) ==
[2017-10-16] MEDS ORDERED: INSULIN REGULAR, HUMAN 100 UNIT/ML INJECTION IVP ONE ×3 (13:58→15:53)
[2017-10-16] MEDS ORDERED: NS 1,000 ML IV ONE ×2 (13:58→15:12)
--- NOTE | 2017-10-16 13:59 | Emergency Department Report ---
General Adult HPI - General Chief complaint: Medical Emergency Stated complaint: high bs Time Seen by Provider: 10/16/17 13:56 Source: patient, family Mode of arrival: ambulatory Limitations: no limitations - History of Present Illness HPI narrative: Patient is a 57-year-old male, bipolar disorder, type II diabetes. Patient was seen yesterday in the emergency department for - Related Data Home Medications Medication Instructions Recorded Confirmed Carvedilol [Coreg] 12.5 mg PO BID #0 07/01/10 10/16/17 Divalproex Sodium [Depakote] 500 mg PO QAM #0 07/01/10 10/16/17 Divalproex [Depakote] 1,000 mg PO HS #0 12/04/15 10/16/17 Cetirizine [Zyrtec] 10 mg PO DAILY 06/15/17 10/16/17 Insulin Degludec [Tresiba 20 unit SQ HS 06/15/17 10/16/17 Flextouch U-100] Levothyroxine Sodium 100 mcg PO ACB 06/15/17 10/16/17 Paliperidone [Paliperidone ER] 6 mg PO DAILY 06/15/17 10/16/17 Aspirin [Adult Low Dose Aspirin EC] 81 mg PO DAILY 08/23/17 10/16/17 Allopurinol [Zyloprim] 300 mg PO DAILY 10/12/17 10/16/17 Benztropine [Cogentin] 1 mg PO BID 10/12/17 10/16/17 Divalproex ER [Depakote ER] 250 mg PO HS 10/12/17 10/16/17 Levofloxacin [Levaquin] 500 mg PO DAILY 10/12/17 10/16/17 Acetaminophen 650 mg PO Q4H PRN 10/15/17 10/16/17 Multivitamin [One Daily] 1 tab PO DAILY 10/15/17 10/16/17 Allergies Allergy/AdvReac Type Severity Reaction Status Date / Time Penicillins Allergy Severe ANAPHYLACTIC Verified 10/16/17 14:03 SHOCK PFSH Patient Stated Medical History Cataracts Yes: bilateral-removed Cardiac Arrhythmia Yes: AFIB- "a long time ago". no issues, currently NSR Hypertension Yes Bronchitis Yes Diabetes Mellitus Type 2 Yes Gastroesophageal Reflux No Disease Hx Urinary Tract Infection Yes Other Yes: urinary retention Anemia Yes Sepsis Yes: UROSEPSIS Bipolar Disorder Yes Surgical History: 1. Cystoscopy on 05/03/[address] Mccray at his office at [place], [place]. 2. Cataract operation at left eye on 11/18/[address] Dionte Aguila at [facility] at [place], [place]. 3. Cataract operation at right eye on 12/30/[address] Dionte Aguila at [facility] at [place], [place]. 4. Esophagogastroduodenoscopy with biopsies and total colonoscopy with biopsies on 07/01/[address] Wyatt at [facility] at [place], [place]. This was performed for evaluation of chronic diarrhea. Biopsies of the duodenum showed no abnormalities. There was no evidence of celiac disease. Random biopsies performed throughout the colon and rectum showed no abnormalities. There was no evidence of any microscopic colitis. The patient did have normal findings at the upper gastrointestinal tract. The patient had some mild sigmoid colon diverticulosis. The patient had some internal and external hemorrhoids. This patient has had other previous hospitalizations as follows: 1. Hospitalized in 1982 or 1983 at [facility] at [place], [place]. The patient states that he was diagnosed with bipolar disorder at this time. 2. Hospitalized at some time in the late in [place]. This was for treatment of psychiatric problems. 3. Hospitalized in January 1998 at [place], [place]. Discharge diagnoses were atrial fibrillation with rapid ventricular rate and chest pain. 4. Hospitalized in May 1998 at [place], [place]. Discharge diagnoses were tachycardia and depression. 5. Hospitalized in October and November 1999 at [place], [place]. Discharge diagnoses were atrial fibrillation with rapid ventricular response, hypothyroidism and bipolar disorder. 6. Hospitalized in August 2000 at [facility] at [place], [place]. This was for treatment of atrial fibrillation with rapid ventricular response. 7. Hospitalized from 08/25/2001 to 09/02/2001 at [place], [place]. 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 8. Hospitalized at [facility] at [facility] at [place], [place]. This was for treatment of psychiatric problems. 9. Hospitalized in September and October 2001 for treatment of atrial fibrillation with rapid ventricular response. I am not sure where the patient was hospitalized at this time. There is a reference to this hospitalization in a letter from Dr. Jh Winkler. 10. Hospitalized in December and January 2016 at [facility] at [place], [place]. Discharge diagnoses were sepsis, pneumonia, dehydration, type 2 diabetes mellitus, hypertension, urinary retention and history of bipolar depression. 11. Hospitalized from 08/26/2017 to 08/28/2017 at [facility] at [place], [place]. Discharge diagnoses were acute encephalopathy and acute renal insufficiency. Family History: Family History (Last Reviewed 09/06/17 @ 16:15 by Nelia Higgins [facility]) Father No problems noted. - Social History Smoking status: Never smoker Does patient use chewing tobacco?: No Course Vital Signs Temperature 97.9 F 10/16/17 13:50 Pulse Rate 93 10/16/17 13:50 Respiratory Rate 24 10/16/17 13:50 Blood Pressure 124/83 10/16/17 13:50 Pulse Oximetry 93 10/16/17 13:50 Temperature 97.9 F 10/16/17 13:50 Pulse Rate 83 10/16/17 15:47 Respiratory Rate 16 10/16/17 15:47 Blood Pressure 144/83 H 10/16/17 15:47 Pulse Oximetry 99 10/16/17 15:47 Medical Decision Making - Lab Data Result diagrams: 10/16/17 14:10 10/16/17 14:10 Lab Results 10/16/17 10/16/17 10/16/17 Range/Units 14:10 14:10 14:10 WBC 9.6 D (4.5-11.0) T/MM3 RBC 4.28 L (4.50-5.90) M/MM3 Hgb 12.6 L (13.5-17.5) GM/DL Hct 39.5 L (41-53) % MCV 92.3 (80-100) UM3 MCH 29.4 (26-34) UUG MCHC 31.9 (31-37) GM/DL RDW Std Deviation 49.3 (36.9-50.2) FL Plt Count 291 (130-400) T/MM3 MPV 9.4 (9.4-12.4) UM3 Immature Gran % (Auto) 2.8 H (0.0-0.5) % Neut % (Auto) 66.2 H (33-66) % Lymph % (Auto) 20.1 L (23-45) % [place] % (Auto) 10.7 H (0-9.0) % Eos % (Auto) 0.0 (0-4) % Baso % (Auto) 0.2 (0-2) % Neut # (Auto) 6.4 (1.8-7.7) T/MM3 Lymph # (Auto) 1.9 (1-4.8) T/MM3 [place] # (Auto) 1.0 H (0-0.8) T/MM3 Eos # (Auto) 0.0 (0-0.5) T/MM3 Baso # (Auto) 0.0 (0-0.2) T/MM3 Abs Immat Gran (auto) 0.27 H (0.00-0.03) T/MM3 Turbidity < 20 (0-20) Sodium 145 H D (134-144) MEQ/L Potassium 4.8 (3.6-5) MEQ/L Chloride 102 D (98-107) MEQ/L Carbon Dioxide 28 (22-30) MEQ/L Anion Gap 15 (5-15) MEQ/L BUN 86.0 H* (9-20) MG/DL Creatinine 1.6 H D (0.8-1.5) MG/DL GFR Calculation 45 BUN/Creatinine Ratio 54 H (6-26) RATIO Calculated Osmolality 347 H (261-280) MOSM/KG Calcium 11.5 H D (8.4-10.2) MG/DL Total Bilirubin 0.30 (0.20-1.30) MG/DL Icterus Index < 2 (0-7) AST 16 L (17-59) U/L ALT 19 L (21-72) U/L Alkaline Phosphatase 224 H (38-126) U/L Total Protein 8.5 H (6.3-8.2) G/DL Albumin 4.1 (3.5-5.0) G/DL Globulin 4.4 H (2.4-3.6) G/DL Albumin/Globulin Ratio 0.9 L (1.1-2.2) RATIO Specimen Hemolysis < 15 (0-25) Ur Collection Type Urine, void-cc/notcc Urine Color Yellow (YELLOW) Urine Clarity Sl cloudy Urine pH 5.5 (5.0-8.0) Ur Specific [place] <=1.005 L (1.015-1.025) Urine Protein Trace A (NEGATIVE) Urine Glucose (UA) 3+ A (NEGATIVE) Urine Ketones Negative (NEGATIVE) Urine Occult Blood Negative (NEGATIVE) Urine Nitrate Negative (NEGATIVE) Urine Bilirubin Negative (NEGATIVE) Urine Urobilinogen 0.2 (NORMAL) EU/DL Ur Leukocyte Esterase Negative (NEGATIVE) Urinalysis Comment Microscopic not ind. Disposition Prescriptions: No Action Divalproex Sodium [Depakote] 500 mg PO QAM #0 Cetirizine [Zyrtec] 10 mg PO DAILY Levothyroxine Sodium 100 mcg PO ACB Levofloxacin [Levaquin] 500 mg PO DAILY Divalproex ER [Depakote ER] 250 mg PO HS Allopurinol [Zyloprim] 300 mg PO DAILY Multivitamin [One Daily] 1 tab PO DAILY Acetaminophen 650 mg PO Q4H PRN PRN Reason: Pain Carvedilol [Coreg] 12.5 mg PO BID #0 Divalproex [Depakote] 1,000 mg PO HS #0 Insulin Degludec [Tresiba Flextouch U-100] 20 unit SQ HS Paliperidone [Paliperidone ER] 6 mg PO DAILY Aspirin [Adult Low Dose Aspirin EC] 81 mg PO DAILY Benztropine [Cogentin] 1 mg PO BID Referrals: Nirav Noland II, MD [Family Provider] -
[2017-10-16] MEDS: SALINE FLUSH 10ml SYRINGE IVF PRN ×4 (14:05→18:05)
--- NOTE | 2017-10-16 14:40 | XRay Report ---
INDICATION: shortness of air PROCEDURE: CHEST 2-VIEWS UPRIGHT (PA & LAT) Encounter: Initial COMPARISON: August 26, 2017 FINDINGS: The lungs are clear without evidence of focal abnormal airspace opacity. There is no pleural effusion or pneumothorax. The heart size, mediastinal contours and pulmonary vascularity are within normal limits. IMPRESSION: No acute cardiopulmonary disease. .
--- NOTE | 2017-10-16 17:07 | History & Physical Report ---
History of Present Illness Date: 10/16/17 Chief complaint: Unobtainable from patient HPI: Karin Ramirez is a 57-year-old male with a history of type 2 diabetes and bipolar disorder. He lives at home with his parents. He was seen in the emergency department on 10/15/17 for hyperglycemia and possible rectal bleeding. His blood sugar was over 800, but he was able to be sent home and followed up with primary care on 10/16/17. At the follow-up appointment, the physician job analysis manager found hyperglycemia and altered mental status. Family reportedly stated that they were unable to take care of him anymore. They had not been checking his blood sugars or giving him insulin. He then went to the emergency department, where initial blood sugar was 858. He was given 2 L of IV fluids and a total of 30 units of regular insulin, which dropped sugar into the 400s. However, he remained encephalopathic and unable to answer questions or provide any sort of history. UA showed 3+ glucose, negative ketones. In addition to hyperglycemia, sodium level was slightly high at 145, BUN was 86, creatinine was 1.6, osmolality was 347, calcium was 11.5. White count was normal at 96. Hemoglobin was 12.6. Dr. Galan was identified, and the patient was admitted to inpatient status for hyperosmotic, nonketotic diabetic coma. Length of stay is expected to exceed 2 overnights. Review of Systems ROS unobtainable: due to mental status Past Medical History Type 2 DM HTN History of A-fib Hyperlipidemia Hypothyroidism Iron deficiency anemia Depression Bipolar disorder IBS BPH History of SBO History of hydroureter and hematuria Surgical History: 1. Cystoscopy on 05/03/[address] Mccray at his office at [place], [place]. 2. Cataract operation at left eye on 11/18/[address] Dionte Aguila at [facility] at [place], [place]. 3. Cataract operation at right eye on 12/30/[address] Dionte Aguila at [facility] at [place], [place]. 4. Esophagogastroduodenoscopy with biopsies and total colonoscopy with biopsies on 07/01/[address] Wyatt at [facility] at [place], [place]. This was performed for evaluation of chronic diarrhea. Biopsies of the duodenum showed no abnormalities. There was no evidence of celiac disease. Random biopsies performed throughout the colon and rectum showed no abnormalities. There was no evidence of any microscopic colitis. The patient did have normal findings at the upper gastrointestinal tract. The patient had some mild sigmoid colon diverticulosis. The patient had some internal and external hemorrhoids. 5. EGD with biopsies and total colonoscopy on 09/18/[address] Wyatt for anemia and positive family history. Postoperative diagnoses were possible gastritis, sigmoid colon diverticulosis, internal and external hemorrhoids. This patient has had other previous hospitalizations as follows: 1. Hospitalized in 1982 or 1983 at [place], [place]. The patient states that he was diagnosed with bipolar disorder at this time. 2. Hospitalized at some time in the late in [place]. This was for treatment of psychiatric problems. 3. Hospitalized in January 1998 at [place], [place]. Discharge diagnoses were atrial fibrillation with rapid ventricular rate and chest pain. 4. Hospitalized in May 1998 at [place], [place]. Discharge diagnoses were tachycardia and depression. 5. Hospitalized in October and November 1999 at [place], [place]. Discharge diagnoses were atrial fibrillation with rapid ventricular response, hypothyroidism and bipolar disorder. 6. Hospitalized in August 2000 at [place], [place]. This was for treatment of atrial fibrillation with rapid ventricular response. 7. Hospitalized from 08/25/2001 to 09/02/2001 at [place], [place]. 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 8. Hospitalized at [facility] at [facility] at [place], [place]. This was for treatment of psychiatric problems. 9. Hospitalized in September and October 2001 for treatment of atrial fibrillation with rapid ventricular response. I am not sure where the patient was hospitalized at this time. There is a reference to this hospitalization in a letter from Dr. Jh Winkler. 10. Hospitalized in December and January 2016 at [place], [place]. Discharge diagnoses were sepsis, pneumonia, dehydration, type 2 diabetes mellitus, hypertension, urinary retention and history of bipolar depression. 11. Hospitalized from 08/26/2017 to 08/28/2017 at [place], [place]. Discharge diagnoses were acute encephalopathy and acute renal insufficiency. Family History Updates: Maternal grandfather of colon cancer at age 60. Maternal grandmother had Parkinson's. Both paternal grandparents of cancer , grandfather with esophageal cancer and grandmother with lung cancer. Paternal grandfather also had coronary artery disease. Father is in his mid-70s and has COPD. Mother has peripheral neuropathy and has bipolar disorder, hyperlipidemia and hyperthyroidism. There is a strong history of diabetes on maternal side of the family. - Social History Smoking status: Never smoker Substance use type: does not use Alcohol intake frequency: does not drink Does patient use chewing tobacco?: No Medications Home Medications Medication Instructions Recorded Confirmed Type Carvedilol [Coreg] 12.5 mg PO BID #0 07/01/10 10/16/17 History Divalproex Sodium [Depakote] 500 mg PO QAM #0 07/01/10 10/16/17 History Divalproex [Depakote] 1,000 mg PO HS #0 12/04/15 10/16/17 History Cetirizine [Zyrtec] 10 mg PO DAILY 06/15/17 10/16/17 History Insulin Degludec [Tresiba 20 unit SQ HS 06/15/17 10/16/17 History Flextouch U-100] Levothyroxine Sodium 100 mcg PO ACB 06/15/17 10/16/17 History Paliperidone [Paliperidone ER] 6 mg PO DAILY 06/15/17 10/16/17 History Aspirin [Adult Low Dose Aspirin EC] 81 mg PO DAILY 08/23/17 10/16/17 History Allopurinol [Zyloprim] 300 mg PO DAILY 10/12/17 10/16/17 History Benztropine [Cogentin] 1 mg PO BID 10/12/17 10/16/17 History Divalproex ER [Depakote ER] 250 mg PO HS 10/12/17 10/16/17 History Levofloxacin [Levaquin] 500 mg PO DAILY 10/12/17 10/16/17 History Acetaminophen 650 mg PO Q4H PRN 10/15/17 10/16/17 History Multivitamin [One Daily] 1 tab PO DAILY 10/15/17 10/16/17 History Allergies Allergy/AdvReac Type Severity Reaction Status Date / Time Penicillins Allergy Severe ANAPHYLACTIC Verified 10/16/17 14:03 SHOCK Exam Vital Signs: Temperature 97.9 F 10/16/17 13:50 Pulse Rate 83 10/16/17 15:47 Respiratory Rate 16 10/16/17 15:47 Blood Pressure 144/83 H 10/16/17 15:47 Pulse Oximetry 99 10/16/17 15:47 - Constitutional Present: no acute distress, well nourished, well developed, other (lethargic) - Routine HEENT Exam Head: Present: normocephalic, atraumatic Eye: Present: PERRL. Absent: conjunctival icterus, scleral injection ENT: Present: mucous membranes dry, oropharynx clear - Routine Neck Exam Present: supple. Absent: lymphadenopathy - Routine Respiratory Exam Present: CTA bilaterally - Routine Cardiovascular Exam Present: RRR, S1, S2 - Routine Abdominal Exam Present: soft, normoactive bowel sounds, non distended, non tender - Routine Extremities Exam Present: edema (1+ B/L pedal), pulses intact, normal capillary refill - Routine Skin Exam Present: dry, warm Comments: stage II pressure ulcer to left of coccyx - Routine Neurological Exam Present: alert. Absent: oriented X3 Patient does not follow commands to test CN or strength. - Routine Psychiatric Exam Absent: normal affect, normal thought process Results - Labs CBC & Chem 7: 10/16/17 14:10 10/16/17 14:10 Assessment and Plan (1) Hyperosmolar nonketotic coma in diabetes Current visit: Yes Status: Acute Assessment and Plan: ADMISSION DIAGNOSES Hyperosmotic, nonketotic diabetic coma Acute encephalopathy Hypernatremia Uremia and elevated creatinine Hypercalcemia Coccygeal ulcer, POA CHRONIC CONDITIONS Type 2 DM; hgb A1c 8.8% on 07/26/17 HTN History of A-fib Hyperlipidemia Hypothyroidism Iron deficiency anemia Depression Bipolar disorder IBS BPH PLAN Admit, inpatient status, under the hospitalist service. He received 2L IVF and 30 U insulin in the ED. Continue with NS at 150 mL/hr. Monitor blood glucose closely. Resume home insulin. Recheck BMP to f/u on electrolyte abnormalities. Hemodynamically stable on admission. Consult wound team for coccygeal ulcer. Provide safe environment; consult case management. Discussed with Dr. Ahuja and with Dr. Galan. DVT Prophylaxis: SCD's Resuscitation Status: Full Code - Physician Narrative Physician: Anish Galan MD Narrative: Date: 10/16/17 Time: 1843 Have independently interviewed and examined pt. Chart reviewed. Case discussed with ED physician and my LODGE SALES ASSOCIATE. Care plan developed with my supervision; agree with above. Progressively weaker. Care needs at home exceeding what his parent's can provide. Uncertain if patient has been able to take his medications. Very weak. Limited verbal interaction. Lungs: decreased, no distress CV: regular AB: soft obese NT +BS Ext: thin no edema MSE: opens eyes, will track with eyes, little verbal interaction Plan: Inpatient admission for treatment of HONC-anticipate greater than 2 midnights of care needed. IVF of NS for hydration-monitor OSM, will likely need to change to 1/2NS tomorrow and decrease rate. Continue Long acting insulin. Primarily needs IVF to help decrease sugars. SCD for DVT prevention. PT/OT when encephalopathy clears. Monitor lab. CM to help with discharge dispositions - do not feel patient will be able to return to his parent's care. Hospital Course Summary Disclaimer: The visit summary below is not to be considered part of the above Progress Note. Hospital Course: 10/16/17 Admit, inpatient status, under the hospitalist service. He received 2L IVF and 30 U insulin in the ED. Continue with NS at 150 mL/hr. Monitor blood glucose closely. Resume home insulin. Recheck BMP to f/u on electrolyte abnormalities. Hemodynamically stable on admission. Consult wound team for coccygeal ulcer. Provide safe environment; consult case management.
[2017-10-16] MEDS ORDERED: ONDANSETRON 4 MG/2 ML INJECTION IVP PRN (17:37)
[2017-10-16] MEDS ORDERED: ACETAMINOPHEN 325 MG TABLET PO PRN (17:37)
[2017-10-16] MEDS: NS 1,000 ML IV SCH (18:04)
[2017-10-16] MEDS ORDERED: FALL RISK - PHARMACY CONSULT XX ONE (18:16)
[2017-10-16 18:26] VITALS: BMI 27.8
[2017-10-16] MEDS: CARVEDILOL 12.5 MG TABLET PO SCH (18:32)
[2017-10-16] MEDS ORDERED: INSULIN NPH HUMAN 100 UNIT/ML SQ ONE (20:16)
[2017-10-16] MEDS ORDERED: INSULIN DEGLUDEC 20 UNIT SQ SCH (21:00)
[2017-10-16] MEDS: INSULIN ASPART 100unit/ml INJECTION SQ PRN (21:12)
[2017-10-16] MEDS: INSULIN GLARGINE 100unit/ml INJECTION SQ SCH (21:13)
[2017-10-16] MEDS: BENZTROPINE 1 MG TABLET PO SCH (22:13)
[2017-10-16] MEDS: DIVALPROEX 500 MG TABLET PO SCH (22:13)
[2017-10-17] MEDS: NS 1,000 ML IV SCH ×2 (00:48→08:16)
[2017-10-17] MEDS: LEVOTHYROXINE 100 MCG TABLET PO SCH (06:43)
[2017-10-17] MEDS: 1/2 NS 1,000 ML IV SCH ×2 (07:43→18:02)
[2017-10-17] MEDS: INSULIN ASPART 100unit/ml INJECTION SQ PRN ×4 (07:51→21:30)
[2017-10-17] MEDS ORDERED: PALIPERIDONE 6 MG PO SCH (09:00)
[2017-10-17] MEDS ORDERED: NON-FORMULARY MEDICATION 1 EACH EACH (Multivitamin [One Daily] 1 TAB) PO SCH (09:00)
[2017-10-17] MEDS: CARVEDILOL 12.5 MG TABLET PO SCH ×2 (09:28→17:22)
[2017-10-17] MEDS: CETIRIZINE 10 MG TABLET PO SCH (09:29)
[2017-10-17] MEDS: ALLOPURINOL 300 MG TABLET PO SCH (09:29)
[2017-10-17] MEDS: ASPIRIN *EC* 81 MG TABLET PO SCH (09:29)
[2017-10-17] MEDS: MULTI-VITAMIN PLAIN TABLET PO SCH (09:29)
[2017-10-17] MEDS: PALIPERIDONE ER 1.5mg TAB PO SCH (09:29)
[2017-10-17] MEDS: DIVALPROEX 500 MG TABLET PO SCH ×2 (09:29→21:32)
[2017-10-17] MEDS: BENZTROPINE 1 MG TABLET PO SCH ×2 (09:29→21:31)
--- NOTE | 2017-10-17 09:37 | Progress Note ---
- Date 10/17/17 Subjective: Karin was in bed, more awake compared to yesterday but still encephalopathic. He appropriately replied "Good morning" after my morning greeting, but subsequently did not answer further questions. He's been moved to room 157, closer to the nursing station. He remains NPO. Objective Vital signs: Temperature 96.5 F L 10/17/17 08:00 Pulse Rate 104 H 10/17/17 08:00 Respiratory Rate 20 10/17/17 08:00 Blood Pressure 156/93 H 10/17/17 08:00 Pulse Oximetry 87 L 10/17/17 08:00 Height/Weight/BMI: Height 1.78 m Weight 87 kg Body Mass Index 27.8 - Constitutional Present: well nourished, well developed - Routine HEENT Exam Head: Present: normocephalic ENT: Present: mucous membranes moist, oropharynx clear - Routine Respiratory Exam Present: CTA bilaterally - Routine Cardiovascular Exam Present: RRR, S1, S2 - Routine Abdominal Exam Present: soft, normoactive bowel sounds, non distended, non tender - Routine Extremities Exam Present: edema (b/l pedal edema) - Routine Skin Exam Present: intact, dry, warm - Routine Neurological Exam Present: alert. Absent: oriented X3 - Routine Psychiatric Exam Present: unable to assess Results - Labs CBC & Chem 7: 10/17/17 05:05 10/17/17 16:05 Assessment and Plan (1) Hyperosmolar nonketotic coma in diabetes Current visit: Yes Status: Acute Assessment and Plan: ADMISSION DIAGNOSES Hyperosmotic, nonketotic diabetic coma Acute encephalopathy Hypernatremia Uremia and elevated creatinine Hypercalcemia Coccygeal ulcer, POA CHRONIC CONDITIONS Type 2 DM; hgb A1c 8.8% on 07/26/17 HTN History of A-fib Hyperlipidemia Hypothyroidism Iron deficiency anemia Depression Bipolar disorder IBS BPH PLAN Na increased to 162: Change IVF to 1/2 NS and trend serial BMP. Osm = 336 Ca continues to trend down with fluids; still a bit high at 10.4 but showing improvement. Hyperglycemia persists but improved to 252. Continue insulin/SSI. Anticipate speech consult today; hopefully we can advance diet safely. Wound team consult pending for coccygeal ulcer. Adama Assessment as above with: Urinary retention - pt should self cath at home. Farris placed on 10/16/17. DVT Prophylaxis: SCD's Resuscitation Status: Full Code - Time spent with patient Time with patient PN: 25 minutes - Physician Narrative Physician: Anish Galan MD Narrative: Date: 10/17/17 Time: 1819 Have independently interviewed and examined pt. Chart reviewed. Case discussed with family and my COMPUTER ANIMATOR. Care plan developed with my supervision; agree with above. More somnolent this evening. To somnolent to try to eat. BP stable. Blood sugar with decrease. Serum sodium increased. Lungs: decreased, upper airway noises. CV: regular AB: soft nt/nd BS decreased EXT: no LE edema, +1 Upper ext edema MSE: somnolent Plan: IVF change to 1/2NS at 100 due to increasing sodium. Will continue fluids , likely needing to change to D5W tomorrow if sodium increases. OSM unchanged. Continue with farris cath-pt with urinary retention and should self cath at home. To encephalopathic for PT/OT. Hospital Course Summary Disclaimer: The visit summary below is not to be considered part of the above Progress Note. Hospital Course: 10/16/17 Admit, inpatient status, under the hospitalist service. He received 2L IVF and 30 U insulin in the ED. Continue with NS at 150 mL/hr. Monitor blood glucose closely. Resume home insulin. Recheck BMP to f/u on electrolyte abnormalities. Hemodynamically stable on admission. Consult wound team for coccygeal ulcer. Provide safe environment; consult case management. 10/17/17 Na increased to 162: Change IVF to 1/2 NS and trend serial BMP. Wcd=076. Ca= 10.4. Hyperglycemia persists but improved to 252. Continue insulin/SSI Anticipate speech consult today; hopefully we can advance diet safely. Wound team consult pending for coccygeal ulcer.
--- NOTE | 2017-10-17 16:28 | Wound Care Progress Note ---
Wound Center Progress Note: ep specialist who was a previous wound care staff, states that pt has a stage II on her coccyx. At this time however previous shift had placed large amount of barrier cream. ep specialist states when pt get up for BM she will clean off Barrier cream and place a Mepliex.
[2017-10-17] MEDS: INSULIN GLARGINE 100unit/ml INJECTION SQ SCH (21:30)
[2017-10-17] MEDS: HYDRALAZINE 20 MG/ML INJECTION IVP PRN (23:41)
[2017-10-18] MEDS: 1/2 NS 1,000 ML IV SCH (04:39)
[2017-10-18] MEDS: INSULIN ASPART 100unit/ml INJECTION SQ PRN ×4 (05:45→20:16)
[2017-10-18] MEDS: LEVOTHYROXINE 100 MCG TABLET PO SCH (07:16)
[2017-10-18] MEDS: METOPROLOL 5mg/5ml INJECTION IVP PRN ×3 (07:55→17:49)
[2017-10-18] MEDS: SALINE FLUSH 10ml SYRINGE IVF PRN ×5 (07:56→20:15)
[2017-10-18] MEDS: ALBUTEROL/IPRATROPIUM 2.5mg-0.5mg/3ml NEB AEROSOL SCH ×4 (08:00→19:22)
[2017-10-18] MEDS ORDERED: ALBUTEROL/IPRATROPIUM 2.5mg-0.5mg/3ml NEB AEROSOL PRN (08:02)
--- NOTE | 2017-10-18 08:34 | XRay Report ---
Indication: RR INCREASED PROCEDURE: XR chest 1V: Encounter: Initial Comparison: October 16, 2017 Findings: Lungs are hypoinflated. No lobar consolidation, pleural effusion or pneumothorax. Cardiac silhouette is mildly enlarged. Mediastinal contours are stable.. Pulmonary vascularity appears normal. Impression: Hypoinflation without focal pneumonia. .
[2017-10-18] MEDS: HYDRALAZINE 20 MG/ML INJECTION IVP PRN ×3 (08:58→13:08)
[2017-10-18] MEDS ORDERED: VALPROATE IV SCH ×2 (09:59→21:00)
[2017-10-18] MEDS ORDERED: NS IV SCH (09:59)
[2017-10-18] MEDS ORDERED: D5W 1,000 ML IV SCH (10:00)
[2017-10-18] MEDS: ALLOPURINOL 300 MG TABLET PO SCH (10:03)
[2017-10-18] MEDS: CARVEDILOL 12.5 MG TABLET PO SCH ×2 (10:03→17:05)
[2017-10-18] MEDS: ASPIRIN *EC* 81 MG TABLET PO SCH (10:04)
[2017-10-18] MEDS: CETIRIZINE 10 MG TABLET PO SCH (10:12)
[2017-10-18] MEDS: BENZTROPINE 1 MG TABLET PO SCH ×2 (10:12→20:14)
[2017-10-18] MEDS: PALIPERIDONE ER 1.5mg TAB PO SCH (10:13)
[2017-10-18] MEDS: MULTI-VITAMIN PLAIN TABLET PO SCH (10:13)
[2017-10-18] MEDS: DIVALPROEX 500 MG TABLET PO SCH (10:13)
--- NOTE | 2017-10-18 10:18 | Progress Note ---
- Date 10/18/17 Subjective: Patient is seen this am at the request of the nurses as he is tachypneic, hypertensive and more lethargic. His O2 had been increased to 10L per mask with his Duoneb tx when I was in to see pt. Respiratory reports pt initially had wheezes, but they resolved with tx. His O2 was 90% at 2 L prior to breathing tx. Pt is able to open his eyes and say good morning in response to soft touch and speaking his name. Nurses report he was a bit more responsive during his bath. He has not had any meds p.o. since arrival. Objective Vital signs: Temperature 98.2 F 10/18/17 08:48 Pulse Rate 120 H 10/18/17 09:37 Respiratory Rate 36 H 10/18/17 09:37 Blood Pressure 146/92 H 10/18/17 09:37 Pulse Oximetry 95 10/18/17 09:37 Height/Weight/BMI: Height 1.78 m Weight 85.4 kg Body Mass Index 27.8 - Constitutional Present: no acute distress, well nourished, well developed - Routine HEENT Exam Head: Present: normocephalic, atraumatic Eye: Present: PERRL - Routine Respiratory Exam Present: CTA bilaterally Comments: tachypnea - Routine Cardiovascular Exam Present: no murmur, tachycardia - Routine Abdominal Exam Present: soft, non distended, non tender - Routine Extremities Exam Present: edema (1+ pedal b/l), normal capillary refill - Routine Skin Exam Present: dry, warm - Routine Neurological Exam Present: altered mental status. Absent: oriented X3 - Routine Lymphatic Exam Lymphatic: Absent: adenopathy - Routine Psychiatric Exam Present: unable to assess Results - Labs CBC & Chem 7: 10/18/17 04:10 10/18/17 11:57 Labs: Laboratory Tests 10/18/17 08:20 ABG pH 7.420 ABG pCO2 46 H ABG pO2 78 L ABG HCO3 30 H ABG Total CO2 31.2 H ABG O2 Saturation 96.0 ABG Base Excess 4.6 H O2 Delivery Method Simple mask, liters FiO2 (liters per min) 10 Laboratory Tests 10/16/17 10/16/17 10/17/17 14:10 18:53 05:05 Sodium 145 H D 154 H D 162 H* D 10/17/17 10/18/17 21:42 04:10 Sodium 164 H* 165 H* - ABG Interpretation ABG results: 10/18/17 08:20 ABG pH 7.420 ABG pCO2 46 H ABG pO2 78 L ABG HCO3 30 H ABG Total CO2 31.2 H ABG O2 Saturation 96.0 ABG Base Excess 4.6 H - ECG Data Tracing #1 Arrhythmias present: sinus tach - Imaging and Cardiology Chest x-ray Additional comments: Date of Exam: 10/18/17 Indication: RR INCREASED PROCEDURE: XR chest 1V: Findings: Lungs are hypoinflated. No lobar consolidation, pleural effusion or pneumothorax. Cardiac silhouette is mildly enlarged. Mediastinal contours are stable.. Pulmonary vascularity appears normal. Impression: Hypoinflation without focal pneumonia. Assessment and Plan (1) Hyperosmolar nonketotic coma in diabetes Current visit: Yes Status: Acute Assessment and Plan: ADMISSION DIAGNOSES Hyperosmotic, nonketotic diabetic coma Acute encephalopathy Hypernatremia Uremia and elevated creatinine Hypercalcemia Coccygeal ulcer, POA Urinary retention - farris placed 10/16/17 CHRONIC CONDITIONS Type 2 DM; hgb A1c 8.8% on 07/26/17 HTN History of A-fib Hyperlipidemia Hypothyroidism Iron deficiency anemia Depression Bipolar disorder IBS BPH PLAN DC 1/2NS and start D5W with increase of SSI for hypernatremia. Check CTA chest d/t dyspnea. Pt currently using SCD's for VTE prophylaxis. Check BMP at 1200 to follow sodium level. Change depakote to IV given NPO status. Patient currently on 3L per NC with sats >90%. Case discussed with Dr. Pulido and nursing staff. - Physician Narrative Physician: Ben Pulido MD Narrative: Date: 10/18/17 Time: 1204 I have independently evaluated and examined this patient. I reviewed the chart, the patient's history, and the [employer]/PA's documented findings as above. We discussed and formulated the assessment and plan as above with additions as below: Mr. Ramirez tracked and responded to some question by nodding his head. CTA of chest did not show PE. Bibasilar pneumonia noted. Patient is lethargic. Lungs are diminished. HR is regular. Abdomen is s/nt/nd. JONES. Monitor Na on D5. WBC is trending up. CT shows PNA. Check procalcitonin. Possible aspiration d/t AMS. Start Meropenem and vanco. He has a PCN allergy - anaphylaxis. Avoiding Zosyn, cefepime. Depakote changed to IV. Patient not getting PO meds d/t AMS. Continue BB and Hydralazine prn. Increase frequency of Hydralazine. Hospital Course Summary Disclaimer: The visit summary below is not to be considered part of the above Progress Note. Hospital Course: 10/16/17 Admit, inpatient status, under the hospitalist service. He received 2L IVF and 30 U insulin in the ED. Continue with NS at 150 mL/hr. Monitor blood glucose closely. Resume home insulin. Recheck BMP to f/u on electrolyte abnormalities. Hemodynamically stable on admission. Consult wound team for coccygeal ulcer. Provide safe environment; consult case management. 10/17/17 Na increased to 162: Change IVF to 1/2 NS and trend serial BMP. Wfo=674. Ca= 10.4. Hyperglycemia persists but improved to 252. Continue insulin/SSI Anticipate speech consult today; hopefully we can advance diet safely. Wound team consult pending for coccygeal ulcer. 10/18/17 DC 1/2NS and start D5W with increase of SSI for hypernatremia. Check CTA chest d/t dyspnea. Pt currently using SCD's for VTE prophylaxis. Check BMP at 1200 to follow sodium level. Change depakote to IV given NPO status. Patient currently on 3L per NC with sats >90% WBC is trending up. CT shows PNA. Check procalcitonin. Possible aspiration d/t AMS. Start Meropenem and vanco. He has a PCN allergy - anaphylaxis. Avoiding Zosyn, cefepime. Depakote changed to IV. Patient not getting PO meds d/t AMS. Continue BB and Hydralazine prn. Increase frequency of Hydralazine.
[2017-10-18] MEDS ORDERED: IODIXANOL 320mg/ml 100ml INJECTION IV ONE (10:23)
[2017-10-18] MEDS ORDERED: SALINE FLUSH 10ml SYRINGE ONE (10:23)
--- NOTE | 2017-10-18 11:05 | CT Scan Report ---
Indication: hypoxia PROCEDURE: CT angio pulm emboli: Encounter: Initial Comparison: Chest x-ray from today Technique: Axial CT pulmonary angiographic phase images were performed through the chest after the administration of intravenous contrast. Coronal and Sagittal MIP reconstructed images were created and reviewed. Automated Exposure Control and Iterative Reconstruction dose reducing techniques were utilized. Contrast: Omnipaque 350 60 mL Findings: Pulmonary arteries: Exam is diagnostic to the interlobar pulmonary arterial level only. Evaluation of the segmental and subsegmental pulmonary arteries is precluded by significant respiratory motion artifact. No discrete filling defects identified to confirm a pulmonary embolus. Other findings: There is multifocal airspace opacity with groundglass airspace disease in the right middle and both lower lobes. Areas of patchy consolidation also in the medial aspect of both lower lobes, likely obscured by the diaphragms on the comparison radiograph. No pneumothorax or pleural effusion. No pulmonary mass. The central airways show mucous plugging in the right lower lobe bronchi. No axillary or mediastinal lymphadenopathy. Heart size is normal. No pericardial effusion. The upper abdomen shows no acute findings. Cholelithiasis. Impression: 1. No large or central pulmonary embolus. 2. Bilateral basilar pneumonia. .
--- NOTE | 2017-10-18 13:32 | Pharmacy Consult-Antibiotics ---
Pharmacy Consult-Vancomycin - Laboratory Information WBC 15.3 T/MM3 (4.5-11.0) H 10/18/17 04:10 BUN 58.0 MG/DL (9-20) H* 10/18/17 11:57 Creatinine 1.6 MG/DL (0.8-1.5) H D 10/18/17 11:57 Procalcitonin 0.37 NG/ML 10/18/17 11:56 - Consult Information Order noted by Dr Pulido to begin vancomycin therapy on Mr Ramirez, who is 57 years old and weighs 85.4kg. His serum creatinine is 1.6 mg/dl and his diagnosis is pneumonia. Will begin vancomycin 1500mg IV q18h and continue to monitor. Thank you.
[2017-10-18] MEDS ORDERED: NS FLUSH BAG 500ml IV PRN (13:44)
[2017-10-18] MEDS: MEROPENEM 1 GM in NS 50 ML IV SCH ×2 (13:47→20:04)
[2017-10-18] MEDS ORDERED: ACETAMINOPHEN 650 MG SUPPOSITORY PR PRN (15:08)
[2017-10-18] MEDS ORDERED: INSULIN GLARGINE 100unit/ml INJECTION SQ SCH (17:28)
[2017-10-18] MEDS ORDERED: NS 1,000 ML IV ONE (20:42)
[2017-10-18] MEDS ORDERED: D5W IV SCH (21:00)
--- NOTE | 2017-10-18 21:18 | Progress Note ---
- Date 10/18/17 Subjective: Was called by nursing staff for reports of patient being found asystole and had return of spontaneous rythym after a 2 minute round of CPR. Patient was in sinus tach with rythm of 120's and SBP in the upper 70's. NS bolus was started and STAT labs, CBC, CMP, Cardiac enzymes, chest xray and ABG ordered. Patient transfer to ICU. Per nursing staff patient's mother is the DPOA and she was spoken to during the CODE BLUE and she requested he be a DNR. Objective Vital signs: Temperature 97.4 F 10/18/17 16:50 Pulse Rate 100 10/18/17 18:42 Respiratory Rate 32 H 10/18/17 19:23 Blood Pressure 132/71 10/18/17 17:46 Pulse Oximetry 96 10/18/17 19:23 Rhythm: Sinus Tachycardia Height/Weight/BMI: Height 1.78 m Weight 85.4 kg Body Mass Index 27.8 Results - Labs CBC & Chem 7: 10/18/17 21:01 10/18/17 15:41 Microbiology Results: Microbiology 10/18/17 13:05 Peripheral/Iv Start Blood Culture - Preliminary Culture Initiated - Results Pending 10/18/17 13:14 Peripheral/Iv Start Blood Culture - Preliminary Culture Initiated - Results Pending - ABG Interpretation ABG results: 10/18/17 08:20 ABG pH 7.420 ABG pCO2 46 H ABG pO2 78 L ABG HCO3 30 H ABG Total CO2 31.2 H ABG O2 Saturation 96.0 ABG Base Excess 4.6 H Assessment and Plan (1) Hyperosmolar nonketotic coma in diabetes Current visit: Yes Status: Acute (2) Asystole Current visit: Yes Status: Acute Assessment and Plan: ADMISSION DIAGNOSES Hyperosmotic, nonketotic diabetic coma Acute encephalopathy Hypernatremia Uremia and elevated creatinine Hypercalcemia Coccygeal ulcer, POA Urinary retention - farris placed 10/16/17 CHRONIC CONDITIONS Type 2 DM; hgb A1c 8.8% on 07/26/17 HTN History of A-fib Hyperlipidemia Hypothyroidism Iron deficiency anemia Depression Bipolar disorder IBS BPH PLAN Transition patient to the ICU. Will restart D5W after patient gets to the ICU for concerns of hypernatremia. Consider NGT placement to give free water if patient will tolerate. Await STAT labs and chest x-ray. Nursing staff reports family is on their way to the hospital. Patient changed to DNR per patient family and nursing staff. - Physician Narrative Narrative: Date: 10/18/17 Time: 2112 Hospital Course Summary Disclaimer: The visit summary below is not to be considered part of the above Progress Note. Hospital Course: 10/16/17 Admit, inpatient status, under the hospitalist service. He received 2L IVF and 30 U insulin in the ED. Continue with NS at 150 mL/hr. Monitor blood glucose closely. Resume home insulin. Recheck BMP to f/u on electrolyte abnormalities. Hemodynamically stable on admission. Consult wound team for coccygeal ulcer. Provide safe environment; consult case management. 10/17/17 Na increased to 162: Change IVF to 1/2 NS and trend serial BMP. Evs=834. Ca= 10.4. Hyperglycemia persists but improved to 252. Continue insulin/SSI Anticipate speech consult today; hopefully we can advance diet safely. Wound team consult pending for coccygeal ulcer. 10/18/17 DC 1/2NS and start D5W with increase of SSI for hypernatremia. Check CTA chest d/t dyspnea. Pt currently using SCD's for VTE prophylaxis. Check BMP at 1200 to follow sodium level. Change depakote to IV given NPO status. Patient currently on 3L per NC with sats >90% WBC is trending up. CT shows PNA. Check procalcitonin. Possible aspiration d/t AMS. Start Meropenem and vanco. He has a PCN allergy - anaphylaxis. Avoiding Zosyn, cefepime. Depakote changed to IV. Patient not getting PO meds d/t AMS. Continue BB and Hydralazine prn. Increase frequency of Hydralazine.
[2017-10-18 22:04] VITALS: TEMP 96.7
[2017-10-18 22:18] VITALS: BP 132/60; PULSE 108; RESP 81; O2SAT 95
--- NOTE | 2017-10-19 08:22 | XRay Report ---
Indication: code PROCEDURE: XR chest 1V: Encounter: Initial Comparison: Chest x-ray dated October 18, 2017 Findings: Hazy airspace opacities in both lower lobes. No pneumothorax or significant pleural effusion. Heart size and mediastinal contours are stable. Pulmonary vascularity cannot be evaluated on this supine view. Impression: Overall stable chest with hazy lower lobe infiltrates. There is a preliminary report by virtual radiologic. .
[2017-10-19] MEDS ORDERED: VANCOMYCIN IV SCH (09:00)
[2017-10-19] MEDS ORDERED: D5W IV SCH (09:00)
--- NOTE | 2017-10-21 18:06 | Death Note ---
Providers - Provider Consults: 10/16/17 17:33 [facility] Consult [CONS] Routine Reason for consultation: coccygeal ulcer Diagnosis - Contributing Factors (1) Hyperosmolar nonketotic coma in diabetes Status: Acute Summary - Date and Time Date of admission: 10/16/17 16:49 - Summary Details: 57 yo admitted for hyperosmolar nonketotic coma with blood glucose of 858. He was hydrated with IVF and blood glucose was corrected with insulin. Patient developed hypernatremia and continued to be encephalopathic. 1/2NS then D5W was used. While encephalopathic, patient aspirated. He developed an aspiration pneumonia. Meropenem and Vancomycin were initiated. He had an episode of asystole on 10/18/17. Spontaneous circulation was restored after about 2 minutes of CPR. Patient's DPOA-HC, his mother, was contacted and requested DNR status. Later he had another episode of asystole and . - Additional Data Attending physician: Ben Pulido IV, MD
== END 2017-10-18 21:53 | disposition expired | DRG 638 ==
LOC: ED 13:46 → SUATTDRO 16:49 → MED 16:49 → CCU 10-18 21:10
PROVIDERS: ADMIT Hospitalist; ATTEND Hospitalist